=== PATIENT | male | born 1960 | race Caucasian/White ===

== ENCOUNTER 2017-02-19 12:27 | Emergency (ER) | payer OTHER ==
[~2017-02-19] VITALS: Ht 165.1 cm; Wt 109.1 kg
[~2017-02-19 12:27] MED LIST: /WARF5TA PO; ACET65TA PO; ENOX40SY SC; IBUP600T PO; PRIN10TA PO; TRAM50TA2 PO; TYL RE; VICO5TAB OR
[2017-02-19] MEDS ORDERED: XARE10TA PO (12:35)
[2017-02-19] MEDS ORDERED: AMIT10TA PO (12:35)
[2017-02-19] MEDS ORDERED: LISI10TA4 PO (12:35)
[2017-02-19] MEDS ORDERED: ASPIRIN 81 MG CHEW TABLET PO ONE (13:00)
[2017-02-19] MEDS ORDERED: LORazepam 2 MG/ML VIAL (J2060) IV STA (13:36)
[2017-02-19 13:37] LABS: BASO % 0.4 % (0.0-1.0); EOS # 0.1 K/mm3 (0.0-0.50); EOS % 1.5 % (0.0-3.0); LARGE UNSTAINED CELL # 0.1 K/mm3 (0.0-0.4); LARGE UNSTAINED CELL % 1.2 % (0.0-4.0); LYMPH # 2.3 K/mm3 (1.5-4.5); LYMPH % 25.3 % (24.0-44.0); MEAN CORPUSCULAR HGB CONC 34.1 g/dl (32.0-36.5); MONO # 0.4 K/mm3 (0.0-0.8); MONO % 4.8 % (0.0-5.0); NEUTROPHILS # 5.7 K/mm3 (1.8-7.7); NEUTROPHILS % 66.8 % (36.0-66.0); PLATELET COUNT, AUTOMATED 245 k/mm3 (150-450); RED CELL DISTRIBUTION WIDTH 12.3 % (11.5-14.5); WHITE BLOOD COUNT 8.5 K/mm3 (4.0-10.0)
[2017-02-19] MEDS ORDERED: fentaNYL 100 MCG/2 ML INJECTION (J3010) IV ONE (13:45)
--- NOTE | 2017-02-19 13:48 | REP ---
Chest two views HISTORY: Chest pain Comparison: 03/09/2013 The lungs are clear. The heart is normal in size. The pulmonary vasculature is normal in appearance. The bony structure is intact. IMPRESSION: No acute disease. Signed by Caio Jefferson MD 02/19/2017 01:39 P
[2017-02-19 13:51] LABS: ANION GAP 8 MEQ/L (8-16); BLOOD UREA NITROGEN 15 MG/DL (7-18); CALCIUM LEVEL 9.2 MG/DL (8.5-10.1); CARBON DIOXIDE LEVEL 26 MEQ/L (21-32); CHLORIDE LEVEL 103 MEQ/L (98-107); CREATININE FOR GFR 0.85 MG/DL (0.70-1.30); GLOMERULAR FILTRATION RATE > 60.0 (>56); GLUCOSE, FASTING 171 MG/DL (70-105); POTASSIUM SERUM 3.5 MEQ/L (3.5-5.1); SODIUM LEVEL 137 MEQ/L (136-145)
[2017-02-19] MEDS ORDERED: ISOVUE-370 76% 100ML VIAL (Q9967) As Ordered ONE (14:07)
--- NOTE | 2017-02-19 16:29 | REP ---
HISTORY: Lower chest pain. COMPARISON: 03/20/2013 CONTRAST: 100 mL of Isovue-370 The mediastinum and pulmonary saúl are unchanged. There is no mass or adenopathy. The intrathoracic vascular structures are unchanged showing no evidence of an abnormality. There are no pleural or pericardial effusions. The imaged upper abdomen and imaged osseous structures are unchanged remaining within normal limits. Evaluation of the lung hein show no significant changes from the prior exam. There are no abnormal nodules, masses or opacities. There is excellent visualization of the pulmonary arterial vasculature and there are no focal filling defects present that would be considered consistent with acute pulmonary emboli. IMPRESSION: CT findings as described above, within normal limits. Signed by Jesus Murrieta DO 02/19/2017 04:37 P
--- NOTE | 2017-02-19 16:35 | REP ---
HISTORY: Left upper abdominal pain. COMPARISON: 07/17/2016 CONTRAST: 100 mL Isovue-370 The prior exam was a noncontrast enhanced exam. The next latest prior of 04/22/2014 was only of the pelvis. The latest prior contrast enhanced abdominal CT was 12/30/2016 and that too was reviewed. There are surgical clips in the gallbladder fossa, status quo from previous cholecystectomy. The liver, spleen, pancreas, adrenal glands and kidneys are again seen to be within normal limits. The abdominal aorta and paraaortic regions are within normal limits. There is no free fluid or free air in the abdomen. The bowel loops and their mesenteries are within normal limits. There is no intraabdominal mass or adenopathy. CT PELVIS: There is no free fluid or free air. There is no mass or adenopathy. The bowel loops and their mesenteries are within normal limits. Bone window technique throughout the examination shows chronic osseous changes, status quo. IMPRESSION: No evidence of acute intraabdominal or intrapelvic disease. Findings as described above. Signed by Jesus Murrieta DO 02/19/2017 04:38 P
[2017-02-19 16:55] VITALS: BP 128/71
--- NOTE | 2017-02-21 07:07 | ECGEPIP ---
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
--- NOTE | 2017-02-21 07:08 | ECGEPIP ---
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
== END 2017-02-19 17:03 | disposition home or self-care (01) ==
LOC: M ED 12:27
DX: R07.9 Chest pain, unspecified (principal); R10.9 Unspecified abdominal pain; I10 Essential (primary) hypertension; E78.4 Other hyperlipidemia
CPT/HCPCS: 71010; 71275; 74177; 80048; 82550; 82553; 83880; 85025; 93005; 93041; 94760; 96374; 96375; 99285; J2060; J3010; Q9967

== ENCOUNTER → 2017-02-26 | Outpatient (REF) | payer OTHER ==
[~2017-02-26] MED LIST changes: +AMIT10TA PO; +LISI10TA4 PO; +XARE10TA PO
[2017-02-26 17:44] LABS: AMYLASE 19 U/L (25-115)
== END ==
LOC: M LAB REF 17:11
PROVIDERS: ATTEND Nurse Practitioner Adult Health
DX: R10.9 Unspecified abdominal pain (principal)

== ENCOUNTER → 2017-11-26 | Outpatient (REF) | payer OTHER ==
[2017-11-26 10:40] LABS: C REACTIVE PROTEIN QUANTITATIV 0.37 MG/DL (0.00-0.30)
== END ==
LOC: M LAB REF 10:10
DX: M25.559 Pain in unspecified hip (principal); M16.10 Unilateral primary osteoarthritis, unspecified hip

== ENCOUNTER 2018-03-10 12:36 | Outpatient (RCR) | payer OTHER | END 2018-03-11 | LOC: M CR 12:36 | DX: I35.0 Nonrheumatic aortic (valve) stenosis (principal); Z95.3 Presence of xenogenic heart valve | CPT/HCPCS: 93798 ==

== ENCOUNTER 2018-03-13 10:28 | Outpatient (RCR) | payer OTHER | END 2018-04-11 | LOC: M CR 10:28 | DX: Z95.3 Presence of xenogenic heart valve (principal); I35.0 Nonrheumatic aortic (valve) stenosis | CPT/HCPCS: 93798 ==

== ENCOUNTER → 2018-03-17 | Outpatient (CLI) | payer OTHER | LOC: M WUC 16:39 | DX: R05 Cough (principal); I51.7 Cardiomegaly; I35.9 Nonrheumatic aortic valve disorder, unspecified; Z95.2 Presence of prosthetic heart valve | CPT/HCPCS: 71046 ==

== ENCOUNTER 2018-05-18 11:28 | Emergency (ER) | payer OTHER ==
[2018-05-18 12:16] LABS: BASO # 0.1 10^3/uL (0.0-0.2); BASO % 0.7 % (0.0-1.0); EOS # 0.2 10^3/uL (0.0-0.50); EOS % 2.6 % (0.0-3.0); HEMATOCRIT 41.9 % (42.0-52.0); IMMATURE GRANULOCYTE % 0.3 % (0-3.0); LYMPH # 2.6 10^3/uL (1.5-4.5); LYMPH % 36.1 % (24.0-44.0); MEAN CORPUSCULAR HEMOGLOBIN 29.4 pg (27.0-33.0); MEAN CORPUSCULAR HGB CONC 33.4 g/dl (32.0-36.5); MONO # 0.6 10^3/uL (0.0-0.8); MONO % 8.1 % (0.0-5.0); NEUTROPHILS # 3.8 10^3/uL (1.8-7.7); NEUTROPHILS % 52.2 % (36.0-66.0); PLATELET COUNT, AUTOMATED 297 10^3/uL (150-450); RED BLOOD COUNT 4.76 10^6/uL (4.30-6.10); RED CELL DISTRIBUTION WIDTH 12.5 % (11.5-14.5); WHITE BLOOD COUNT 7.3 10^3/uL (4.0-10.0)
[2018-05-18 12:27] LABS: INR 1.96; PROTHROMBIN TIME 22.7 SECONDS (12.1-14.4)
[2018-05-18 12:52] LABS: ALBUMIN 3.5 GM/DL (3.2-5.2); ALBUMIN/GLOBULIN RATIO 1.03 (1.00-1.93); ALKALINE PHOSPHATASE 81 U/L (45-117); ALT/SGPT 33 U/L (12-78); ANION GAP 5 MEQ/L (8-16); AST/SGOT 24 U/L (7-37); BILIRUBIN,DIRECT 0.2 MG/DL (0.0-0.2); BILIRUBIN,TOTAL 0.5 MG/DL (0.2-1.0); BLOOD UREA NITROGEN 17 MG/DL (7-18); C REACTIVE PROTEIN QUANTITATIV 0.83 MG/DL (0.00-0.30); CALCIUM LEVEL 8.5 MG/DL (8.5-10.1); CARBON DIOXIDE LEVEL 30 MEQ/L (21-32); CHLORIDE LEVEL 107 MEQ/L (98-107); CPK CREATINE PHOSPHOKINASE 157 U/L (39-308); CREATININE FOR GFR 0.83 MG/DL (0.70-1.30); GLOMERULAR FILTRATION RATE > 60.0 (>56); GLUCOSE, FASTING 143 MG/DL (70-100); MB/CK RELATIVE INDEX 0.83 (< OR =4); POTASSIUM SERUM 3.8 MEQ/L (3.5-5.1); SODIUM LEVEL 142 MEQ/L (136-145); TOTAL PROTEIN 6.9 GM/DL (6.4-8.2); TROPONIN I < 0.02 NG/ML (< 0.10)
[2018-05-18] MEDS: KETOROLAC 30 MG/ML VIAL (J1885) IV (13:58)
== END 2018-05-18 14:11 | disposition home or self-care (01) ==
LOC: M ED 11:28
DX: R07.89 Other chest pain (principal); Z86.718 Personal history of other venous thrombosis and embolism; M48.00 Spinal stenosis, site unspecified; Z88.5 Allergy status to narcotic agent; Z88.6 Allergy status to analgesic agent; Z79.899 Other long term (current) drug therapy; Z79.01 Long term (current) use of anticoagulants; Z79.82 Long term (current) use of aspirin
CPT/HCPCS: J1885

== ENCOUNTER 2019-04-27 06:51 | Emergency (ER) | payer OTHER ==
[~2019-04-27] VITALS: Ht 165.1 cm; Wt 108.0 kg
[~2019-04-27 06:51] MED LIST changes: -/WARF5TA PO; +ACET1TAB55 PO; +AMIT25TA PO; +ASPI81CH33 PO; +BIOF4GEL2 TOP; +COUM1TAB17 PO; +COUM2TAB22 PO; -ENOX40SY SC; +FERR325T16 PO; +FOLI800C PO; +LISI-1046 PO; +LOVE1INJ SC; +METO37.5 PO; +MULT1TAB10 PO; +VITA500C24 PO
[2019-04-27 06:52] VITALS: BP 112/74
[2019-04-27] MEDS ORDERED: XARE20TA PO (06:59)
[2019-04-27] MEDS ORDERED: ATOR40TA75 PO (06:59)
[2019-04-27] MEDS ORDERED: AUGM875T28 PO (07:00)
[2019-04-27] MEDS ORDERED: NS 1,000 ML IV ONE (07:30)
[2019-04-27] MEDS ORDERED: IPRATROPIUM 0.5MG/ALBUTEROL 2.5MG INH SOL UD 3ML (DUONEB)(J7620) NEB PRN (07:30)
[2019-04-27 08:03] LABS: BASO # 0.1 10^3/uL (0.0-0.2); BASO % 0.6 % (0.0-1.0); EOS # 0.3 10^3/uL (0.0-0.5); HEMATOCRIT 42.1 % (42.0-52.0); HEMOGLOBIN 14.6 g/dl (13.5-17.5); LYMPH # 2.3 10^3/uL (1.5-5.0); MEAN CORPUSCULAR HEMOGLOBIN 29.5 pg (27.0-33.0); MEAN CORPUSCULAR HGB CONC 34.7 g/dl (32.0-36.5); MEAN CORPUSCULAR VOLUME 85.1 fl (80.0-96.0); MONO % 7.5 % (0.0-5.0); NEUTROPHILS # 9.2 10^3/uL (1.5-8.5); NEUTROPHILS % 71.7 % (36.0-66.0); PLATELET COUNT, AUTOMATED 439 10^3/uL (150-450); RED BLOOD COUNT 4.95 10^6/uL (4.30-6.10); WHITE BLOOD COUNT 12.8 10^3/uL (4.0-10.0)
[2019-04-27 08:23] LABS: INFLUENZA A AMPLIFICATION NEGATIVE (NEGATIVE); INFLUENZA B AMPLIFICATION NEGATIVE (NEGATIVE)
[2019-04-27 08:25] LABS: BLOOD UREA NITROGEN 15 MG/DL (7-18); CALCIUM LEVEL 9.4 MG/DL (8.5-10.1); CARBON DIOXIDE LEVEL 24 MEQ/L (21-32); CHLORIDE LEVEL 94 MEQ/L (98-107); CK-MB VALUE MASS 1.7 NG/ML (<3.6); CPK CREATINE PHOSPHOKINASE 74 U/L (39-308); CREATININE FOR GFR 1.08 MG/DL (0.70-1.30); GLOMERULAR FILTRATION RATE > 60.0 (>56); GLUCOSE, FASTING 542 MG/DL (70-100); NT-PRO BNP 168 PG/ML (<125); POTASSIUM SERUM 4.7 MEQ/L (3.5-5.1); SODIUM LEVEL 130 MEQ/L (136-145); TROPONIN I < 0.02 NG/ML (< 0.10)
[2019-04-27 09:17] LABS: HEMOGLOBIN A1c 11.5 %
[2019-04-27 09:34] LABS: VENOUS BASE EXCESS -0.3 (-2.0-2.0); VENOUS HCO3 24.2 MEQ/L (23.0-27.0); VENOUS PARTIAL PRESSURE CO2 39.2 mmHg (38.0-50.0); VENOUS PARTIAL PRESSURE O2 62.3 mmHg (30.0-50.0); VENOUS PH 7.408 UNITS (7.330-7.430); VENOUS STANDARD HCO3 24.1 MEQ/L; VENOUS TOTAL CO2 25.4 MEQ/L (24.0-28.0)
--- NOTE | 2019-04-27 09:35 | REP ---
CT CHEST WITHOUT IV CONTRAST: CT chest was performed without IV contrast. Sagittal and coronal reconstruction images are performed. There is a new small right pleural effusion when compared to the prior study of 02/19/2017. There is adjacent mild patchy atelectasis or infiltrate in the right middle and lower lobes. Left lung is clear. There is no left effusion. The heart is normal in size. There is no pericardial effusion. Scattered subcentimeter lymph nodes are seen throughout the mediastinum. There is no axillary adenopathy. There is mild atherosclerotic calcification of the thoracic aorta without aneurysm. There are degenerative changes of the spine. The visualized upper abdomen is unremarkable except for metallic clips in the gallbladder fossa status-post cholecystectomy. IMPRESSION: New small right effusion with adjacent patchy atelectasis or infiltrate in the right and middle lower lobes. Electronically Signed by Rajesh Colon MD 04/27/2019 04:08 P
[2019-04-27] MEDS ORDERED: METF750T36 PO (11:26)
--- NOTE | 2019-04-27 12:58 | REP ---
PA and lateral chest: Comparison is 05/18/2018. There is a new right pleural effusion with adjacent atelectasis. Left lung remains clear. Cardiac size appears normal. The prominent right epicardial fat pad, unchanged. There are surgical clips in the right hilus, unchanged. There is cardiac valve replacement, unchanged. Impression: New right pleural effusion with adjacent atelectasis. Electronically Signed by Rajesh Morales MD 04/27/2019 12:49 P
--- NOTE | 2019-04-28 04:35 | ECGEPIP ---
[facility] - ED Test Date: 2019-04-27 Pat Name: ZORAIDA ROSE Department: Room: - Gender: Male Research Subject: KELLEY : 1960 Requested By: GARY Troy PA-C Order Number: [id number] Reading MD: Don Laboy Measurements Intervals [place] Rate: 85 P: 29 ID: 148 QRS: -27 QRSD: 133 T: 5 QT: 370 QTc: 442 Interpretive Statements SINUS RHYTHM LEFT AXIS DEVIATION RIGHT BUNDLE BRANCH BLOCK MODERATE VOLTAGE CRITERIA FOR LVH, CONSIDER NORMAL VARIANT INFERIOR MYOCARDIAL INFARCTION, PROBABLY OLD SIMILAR TO 05/18/18 Electronically Signed on 04-28-2019 4:34:38 EDT by Don Laboy
--- NOTE | 2019-04-28 12:38 | ED PDOC ---
Post-Departure Follow-Up dr chinchilla faxed formal report of ct chest for fu Nallely Damian MD Apr 28, 2019 12:38
== END 2019-04-27 11:37 | disposition home or self-care (01) ==
LOC: M ED 06:51
DX: J90 Pleural effusion, not elsewhere classified (principal); J98.11 Atelectasis; E11.9 Type 2 diabetes mellitus without complications; R63.1 Polydipsia; R35.8 Other polyuria; J02.9 Acute pharyngitis, unspecified; I10 Essential (primary) hypertension; I48.91 Unspecified atrial fibrillation; E78.5 Hyperlipidemia, unspecified; Z86.718 Personal history of other venous thrombosis and embolism; Z79.899 Other long term (current) drug therapy; Z79.01 Long term (current) use of anticoagulants; Z88.5 Allergy status to narcotic agent; Z88.8 Allergy status to other drugs, medicaments and biological substances

== ENCOUNTER 2019-09-26 23:49 | Emergency (ER) | payer OTHER ==
[~2019-09-26] VITALS: Ht 165.1 cm; Wt 104.5 kg
[~2019-09-26 23:49] MED LIST changes: +ATOR40TA75 PO; +AUGM875T28 PO; +METF750T36 PO; +XARE20TA PO
[2019-09-27] MEDS ORDERED: NS 1,000 ML IV ONE (00:15)
[2019-09-27] MEDS ORDERED: INVO300T PO (00:27)
[2019-09-27] MEDS ORDERED: LANTINJ4 SC (00:27)
[2019-09-27 00:35] LABS: BASO % 0.4 % (0.0-1.0); EOS # 0.1 10^3/uL (0.0-0.5); EOS % 1.3 % (0.0-3.0); HEMATOCRIT 39.8 % (42.0-52.0); HEMOGLOBIN 13.3 g/dl (13.5-17.5); LYMPH % 21.7 % (24.0-44.0); MEAN CORPUSCULAR HEMOGLOBIN 29.4 pg (27.0-33.0); MEAN CORPUSCULAR HGB CONC 33.4 g/dl (32.0-36.5); MEAN CORPUSCULAR VOLUME 87.9 fl (80.0-96.0); MONO # 0.9 10^3/uL (0.0-0.8); MONO % 9.7 % (0.0-5.0); NEUTROPHILS # 6.3 10^3/uL (1.5-8.5); NEUTROPHILS % 66.8 % (36.0-66.0); PLATELET COUNT, AUTOMATED 209 10^3/uL (150-450); RED BLOOD COUNT 4.53 10^6/uL (4.30-6.10); WHITE BLOOD COUNT 9.4 10^3/uL (4.0-10.0)
[2019-09-27] MEDS ORDERED: ISOVUE-370 76% 100ML VIAL (Q9967) As Ordered ONE (00:42)
[2019-09-27 00:43] LABS: INR 1.36; PROTHROMBIN TIME 16.5 SECONDS (11.8-14.0)
[2019-09-27 01:03] LABS: BLOOD UREA NITROGEN 19 MG/DL (7-18); CALCIUM LEVEL 8.9 MG/DL (8.5-10.1); CARBON DIOXIDE LEVEL 26 MEQ/L (21-32); CHLORIDE LEVEL 110 MEQ/L (98-107); CK-MB VALUE MASS 1.1 NG/ML (<3.6); CPK CREATINE PHOSPHOKINASE 68 U/L (39-308); CREATININE FOR GFR 0.99 MG/DL (0.70-1.30); ETHYL ALCOHOL (ETHANOL) 0.003 % (0.000-0.010); GLOMERULAR FILTRATION RATE > 60.0 (>56); GLUCOSE, FASTING 140 MG/DL (70-100); MB/CK RELATIVE INDEX 1.62 (< OR =4); POTASSIUM SERUM 3.7 MEQ/L (3.5-5.1); SODIUM LEVEL 144 MEQ/L (136-145); TROPONIN I 0.08 NG/ML (< 0.10)
--- NOTE | 2019-09-27 01:37 | REPVR ---
PROCEDURE INFORMATION: Exam: CT Head Without Contrast Exam date and time: 09/27/2019 12:51 AM Age: 59 years old Clinical indication: Coma or unconsciousness; Additional info: Prolonged, sudden unconciousness TECHNIQUE: Imaging protocol: Computed tomography of the head without contrast. Radiation optimization: All CT scans at this facility use at least one of these dose optimization techniques: automated exposure control; mA and/or kV adjustment per patient size (includes targeted exams where dose is matched to clinical indication); or iterative reconstruction. COMPARISON: CT Head without contrast 2015-12-28 07:12 FINDINGS: Brain: Normal. No hemorrhage. Unremarkable white matter. No mass effect. Ventricles: Normal. No ventriculomegaly. Bones/joints: Unremarkable. No acute fracture. Sinuses: Visualized sinuses are unremarkable. No fluid levels. Mastoid air cells: Visualized mastoid air cells are well aerated. Soft tissues: Unremarkable. IMPRESSION: No acute intracranial abnormality. Electronically signed by: Zen Whitt On 09/27/2019 01:37:22 AM
--- NOTE | 2019-09-27 01:50 | REPVR ---
PROCEDURE INFORMATION: Exam: CT Abdomen And Pelvis With Contrast Exam date and time: 09/27/2019 12:55 AM Age: 59 years old Clinical indication: Other: Hypotension; Additional info: Collapse, hypotension TECHNIQUE: Imaging protocol: Computed tomography of the abdomen and pelvis with intravenous contrast. Radiation optimization: All CT scans at this facility use at least one of these dose optimization techniques: automated exposure control; mA and/or kV adjustment per patient size (includes targeted exams where dose is matched to clinical indication); or iterative reconstruction. Contrast material: ISOVUE 370; Contrast volume: 100 ml; Contrast route: IV; COMPARISON: CT ABD/PEL W/IV CONTRAST ONLY 2017-02-19 14:24 FINDINGS: Pleural space: Small right-sided pleural effusion associated atelectasis. Heart: Mild cardiac enlargement. Liver: Hepatic steatosis. Gallbladder and bile ducts: Normal. No calcified stones. No ductal dilation. Pancreas: Normal. No ductal dilation. Spleen: Normal. No splenomegaly. Adrenals: Normal. No mass. Kidneys and ureters: 2 mm non-obstructing right renal calculus. Stomach and bowel: Moderate diverticulosis coli. Some of the small bowel loops in the mid abdomen appear slightly thickened, although they are not distended. Appendix: No evidence of appendicitis. Intraperitoneal space: Unremarkable. No free air. No significant fluid collection. Vasculature: Cavernous transformation of the portal vein. Lymph nodes: Unremarkable. No enlarged lymph nodes. Bladder: Unremarkable as visualized. Reproductive: Unremarkable as visualized. Bones/joints: Right hip arthroplasty. Mild lumbar spondylosis. Soft tissues: Unremarkable. Other findings: Aortic valve calcification. IMPRESSION: 1. Hepatic steatosis. 2. Cavernous transformation of the portal vein. 3. Moderate diverticulosis coli. 4. Some of the small bowel loops in the mid abdomen appear slightly thickened, although they are not distended. Significance uncertain. Electronically signed by: Zen Whitt On 09/27/2019 01:49:03 AM
--- NOTE | 2019-09-27 01:50 | REPVR ---
PROCEDURE INFORMATION: Exam: CT Angiography Chest With Contrast Exam date and time: 09/27/2019 12:51 AM Age: 59 years old Clinical indication: Other: Prolonged, sudden unconciousness TECHNIQUE: Imaging protocol: Computed tomographic angiography of the chest with intravenous contrast. 3D rendering: MIP and/or 3D reconstructed images were created by the technologist. Radiation optimization: All CT scans at this facility use at least one of these dose optimization techniques: automated exposure control; mA and/or kV adjustment per patient size (includes targeted exams where dose is matched to clinical indication); or iterative reconstruction. Contrast material: ISOVUE 370; Contrast volume: 100 ml; Contrast route: IV; COMPARISON: CT ANGIO CHEST 2017-02-19 14:24 FINDINGS: Pulmonary arteries: No filling defects in the pulmonary arteries to suggest pulmonary emboli. Aorta: Unremarkable. No aortic aneurysm. No aortic dissection. Lungs: See Pleural Space Finding. Pleural space: Small right-sided pleural effusion with associated atelectasis. Heart: Aortic valve calcification. Gallbladder and bile ducts: Cholecystectomy. Lymph nodes: Unremarkable. No enlarged lymph nodes. Bones/joints: Unremarkable. No acute fracture. Soft tissues: Unremarkable. IMPRESSION: 1. Small right-sided pleural effusion with associated atelectasis. 2. No filling defects in the pulmonary arteries to suggest pulmonary emboli. Electronically signed by: Zen Whitt On 09/27/2019 01:50:24 AM
[2019-09-27 01:51] LABS: AMPHETAMINES LEVEL URINE NEGATIVE (NEGATIVE); BARBITURATES URINE NEGATIVE (NEGATIVE); BENZODIAZEPINES URINE NEGATIVE (NEGATIVE); CANNABINOIDS URINE NEGATIVE (NEGATIVE); COCAINE METABOLITE URINE NEGATIVE (NEGATIVE); METHADONE URINE NEGATIVE (NEGATIVE); OPIATES URINE NEGATIVE (NEGATIVE); PHENCYCLIDINE URINE NEGATIVE (NEGATIVE)
[2019-09-27 03:16] LABS: CK-MB VALUE MASS 1.8 NG/ML (<3.6); MB/CK RELATIVE INDEX 2.57 (< OR =4); TROPONIN I 0.16 NG/ML (< 0.10)
[2019-09-27] MEDS ORDERED: HEPARIN DRIP 25,000 UNITS in IV 1 EA IV SCH (04:14)
[2019-09-27] MEDS ORDERED: ASPIRIN 81 MG CHEW TABLET PO ONE (04:15)
[2019-09-27] MEDS ORDERED: HEPARIN SOD (PORCINE) 5000 UNITS/ML VIAL (J1644 PER 1000UNITS) IV ONE (04:15)
[2019-09-27 05:20] VITALS: BP 112/68
--- NOTE | 2019-09-27 05:54 | ECGEPIP ---
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
[2019-09-27 05:59] LABS: CK-MB VALUE MASS 1.4 NG/ML (<3.6); MB/CK RELATIVE INDEX 1.09 (< OR =4); TROPONIN I 0.16 NG/ML (< 0.10)
--- NOTE | 2019-09-28 08:27 | ECGEPIP ---
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
== END 2019-09-27 05:27 | disposition short-term general hospital (02) ==
LOC: M ED 23:49
DX: R79.89 Other specified abnormal findings of blood chemistry (principal); I45.10 Unspecified right bundle-branch block; Z79.899 Other long term (current) drug therapy; Z79.4 Long term (current) use of insulin; Z88.5 Allergy status to narcotic agent; Z88.8 Allergy status to other drugs, medicaments and biological substances
CPT/HCPCS: 70450; 71275; 74177; 80047; 80048; 80307; 81001; 82550; 82553; 83605; 84443; 84484; 85025; 85610; 85730; 93005; 93041; 94760; 96361; 96374; 99291; G0480; J1644; Q9967

== ENCOUNTER 2019-10-07 18:47 | Emergency (ER) | payer OTHER ==
[~2019-10-07] VITALS: Ht 165.1 cm; Wt 107.5 kg
[~2019-10-07 18:47] MED LIST changes: +INVO300T PO; +LANTINJ4 SC
[2019-10-07 19:21] LABS: BASO # 0.1 10^3/uL (0.0-0.2); BASO % 0.7 % (0.0-1.0); EOS # 0.2 10^3/uL (0.0-0.5); EOS % 1.5 % (0.0-3.0); HEMATOCRIT 41.2 % (42.0-52.0); HEMOGLOBIN 13.8 g/dl (13.5-17.5); LYMPH # 3.5 10^3/uL (1.5-5.0); LYMPH % 35.5 % (24.0-44.0); MEAN CORPUSCULAR HEMOGLOBIN 29.5 pg (27.0-33.0); MEAN CORPUSCULAR HGB CONC 33.5 g/dl (32.0-36.5); MONO # 0.9 10^3/uL (0.0-0.8); MONO % 9.1 % (0.0-5.0); NEUTROPHILS # 5.2 10^3/uL (1.5-8.5); PLATELET COUNT, AUTOMATED 271 10^3/uL (150-450); RED BLOOD COUNT 4.68 10^6/uL (4.30-6.10); WHITE BLOOD COUNT 9.8 10^3/uL (4.0-10.0)
[2019-10-07] MEDS ORDERED: NS 1,000 ML IV ONE (19:30)
[2019-10-07 19:34] LABS: INR 1.04; PROTHROMBIN TIME 13.3 SECONDS (11.8-14.0)
[2019-10-07 19:52] LABS: ALT/SGPT 32 U/L (12-78); BILIRUBIN,DIRECT 0.2 MG/DL (0.0-0.2); BILIRUBIN,TOTAL 0.7 MG/DL (0.2-1.0); BLOOD UREA NITROGEN 22 MG/DL (7-18); CALCIUM LEVEL 9.4 MG/DL (8.5-10.1); CARBON DIOXIDE LEVEL 25 MEQ/L (21-32); CHLORIDE LEVEL 105 MEQ/L (98-107); CPK CREATINE PHOSPHOKINASE 69 U/L (39-308); CREATININE FOR GFR 1.18 MG/DL (0.70-1.30); GLOMERULAR FILTRATION RATE > 60.0 (>56); GLUCOSE, FASTING 141 MG/DL (70-100); LIPASE 90 U/L (73-393); MB/CK RELATIVE INDEX 1.45 (< OR =4); POTASSIUM SERUM 3.2 MEQ/L (3.5-5.1); SODIUM LEVEL 138 MEQ/L (136-145); TOTAL PROTEIN 7.8 GM/DL (6.4-8.2); TROPONIN I < 0.02 NG/ML (< 0.10)
[2019-10-07 20:04] LABS: ABG BASE EXCESS -0.3 (-2.0-2.0); ABG HCO3 23.3 MEQ/L (22.0-26.0); ABG O2 SATURATION 97.6 % (95.0-99.0); ABG PARTIAL PRESSURE CO2 34.9 mmHg (35.0-45.0); ABG PARTIAL PRESSURE O2 98.6 mmHg (75.0-100.0); ABG STANDARD HCO3 24.3 MEQ/L (22.0-26.0); ABG TOTAL CO2 24.4 MEQ/L (22.0-29.0); ABG pH (ARTERIAL) 7.443 UNITS (7.350-7.450)
--- NOTE | 2019-10-07 20:39 | REP ---
Portable chest x-ray: Single view. History: Chest pain. Comparison chest x-ray: April 27, 2019. Findings: The patient is status post aortic valve replacement. There are mediastinal clips on the right. Right hemidiaphragm is somewhat elevated and there is pleuroparenchymal fibrosis on the right. This appears less prominent than on the April 27, 2019 study. No acute infiltrate is appreciated. Heart is not enlarged. Impression: Status post aortic valve replacement. 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 No acute infiltrate. Electronically Signed by Curtis Pierson MD 10/08/2019 08:58 A
[2019-10-07] MEDS ORDERED: ISOVUE-370 76% 100ML VIAL (Q9967) As Ordered ONE (21:01)
--- NOTE | 2019-10-07 22:12 | REPVR ---
PROCEDURE INFORMATION: Exam: CT Abdomen And Pelvis With Contrast Exam date and time: 10/07/2019 9:14 PM Age: 59 years old Clinical indication: Abdominal pain; Generalized; Additional info: Hypotens TECHNIQUE: Imaging protocol: Computed tomography of the abdomen and pelvis with intravenous contrast. Radiation optimization: All CT scans at this facility use at least one of these dose optimization techniques: automated exposure control; mA and/or kV adjustment per patient size (includes targeted exams where dose is matched to clinical indication); or iterative reconstruction. Contrast material: ISOVUE 370; Contrast volume: 100 ml; Contrast route: IV; COMPARISON: CT ABD/PEL W/IV CONTRAST ONLY 09/27/2019 12:50 AM FINDINGS: Lungs: Mild atelectasis in the right middle lobe. Pleural space: Small right pleural effusion. Liver: The liver is low attenuation indicating hepatic steatosis. Gallbladder and bile ducts: There has been prior cholecystectomy. No biliary duct dilation. Pancreas: Normal. No ductal dilation. Spleen: Normal. No splenomegaly. Adrenals: Normal. No mass. Kidneys and ureters: Punctate calyceal stone in the right kidney. Kidneys are otherwise unremarkable. No hydronephrosis. Stomach and bowel: There is mild colonic diverticulosis without evidence of diverticulitis. The small bowel is unremarkable. Appendix: No evidence of appendicitis. Intraperitoneal space: Unremarkable. No free air. No significant fluid collection. Vasculature: Portal vein is patent. 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 Aorta is normal size. No aneurysm or dissection. Lymph nodes: Unremarkable. No enlarged lymph nodes. Bladder: Unremarkable as visualized. Reproductive: Unremarkable as visualized. Bones/joints: There are degenerative changes in the spine and pelvis. Prior right hip arthroplasty. Soft tissues: Unremarkable. IMPRESSION: 1. Hepatic steatosis. 2. Colonic diverticulosis without evidence of diverticulitis. 3. 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 No other signs of portal hypertension. Electronically signed by: Bairon Donnelly On 10/07/2019 22:11:47 PM
--- NOTE | 2019-10-07 22:20 | REPVR ---
PROCEDURE INFORMATION: Exam: CT Angiography Chest With Contrast Exam date and time: 10/07/2019 9:14 PM Age: 59 years old Clinical indication: Chest pain; Additional info: Hypotens TECHNIQUE: Imaging protocol: Computed tomographic angiography of the chest with intravenous contrast. 3D rendering: MIP and/or 3D reconstructed images were created by the technologist. Radiation optimization: All CT scans at this facility use at least one of these dose optimization techniques: automated exposure control; mA and/or kV adjustment per patient size (includes targeted exams where dose is matched to clinical indication); or iterative reconstruction. Contrast material: ISOVUE 370; Contrast volume: 100 ml; Contrast route: IV; COMPARISON: CT ANGIO CHEST 09/27/2019 12:50 AM FINDINGS: Pulmonary arteries: Normal. No pulmonary emboli. Aorta: Unremarkable. No aortic aneurysm. No aortic dissection. Lungs: Mild right basilar atelectasis and scarring in the right middle lobe. Pleural space: Pleural small right pleural effusion. Heart: Prior aortic valve surgery. Normal heart size. No pericardial effusion. Lymph nodes: Unremarkable. No enlarged lymph nodes. Bones/joints: Skeletal degenerative changes are noted. Soft tissues: Unremarkable. IMPRESSION: 1. Small right pleural effusion and mild basilar atelectasis. 2. Otherwise unremarkable. No acute findings. Electronically signed by: Bairon Donnelly On 10/07/2019 22:20:09 PM
[2019-10-07 23:28] VITALS: BP 110/60
[2019-10-07] MEDS ORDERED: NALOXONE INJ 2 MG/2 ML SYRINGE (J2310) As Ordered ONE (23:31)
[2019-10-08] MEDS ORDERED: METO25TA4 PO (01:55)
[2019-10-08] MEDS ORDERED: BIOF4GEL2 EXT (01:55)
[2019-10-08] MEDS ORDERED: XARE20TA PO (01:55)
[2019-10-08] MEDS ORDERED: VITMTA PO (01:55)
[2019-10-08] MEDS ORDERED: AMIT25TA PO (01:55)
[2019-10-08] MEDS ORDERED: METF750T36 PO (01:55)
[2019-10-08] MEDS ORDERED: ATOR40TA75 PO (01:55)
--- NOTE | 2019-10-08 05:59 | ECGEPIP ---
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
--- NOTE | 2019-10-08 06:03 | ECGEPIP ---
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
== END 2019-10-07 23:29 | disposition home or self-care (01) ==
LOC: M ED 18:47
DX: E86.0 Dehydration (principal); E11.9 Type 2 diabetes mellitus without complications; I10 Essential (primary) hypertension; Z88.5 Allergy status to narcotic agent; E78.5 Hyperlipidemia, unspecified; Z86.718 Personal history of other venous thrombosis and embolism; Z88.8 Allergy status to other drugs, medicaments and biological substances; Z79.899 Other long term (current) drug therapy; Z79.84 Long term (current) use of oral hypoglycemic drugs; Z79.01 Long term (current) use of anticoagulants
CPT/HCPCS: 36415; 36600; 71045; 71275; 74177; 80048; 80076; 82550; 82553; 82803; 83690; 84484; 85025; 85610; 93005; 93041; 96360; 99285; Q9967

== ENCOUNTER 2019-10-07 23:33 | Inpatient (IN) | payer OTHER ==
[~2019-10-07] VITALS: Ht 165.1 cm; Wt 103.7 kg
[2019-10-07] MEDS ORDERED: levETIRAcetam INJection 1,000 MG in D5W 100 ML IV ONE (23:45)
[2019-10-08 00:10] LABS: HEMATOCRIT 40.3 % (42.0-52.0); HEMOGLOBIN 13.1 g/dl (13.5-17.5); MEAN CORPUSCULAR HEMOGLOBIN 29.1 pg (27.0-33.0); MEAN CORPUSCULAR HGB CONC 32.5 g/dl (32.0-36.5); MEAN CORPUSCULAR VOLUME 89.6 fl (80.0-96.0); PLATELET COUNT, AUTOMATED 270 10^3/uL (150-450); WHITE BLOOD COUNT 13.8 10^3/uL (4.0-10.0)
[2019-10-08 00:29] LABS: ATYPICAL LYMPH 4 % (0-5); BASOPHILS 2 % (0-1); LYMPHOCYTES 34 % (16-44); MONOCYTES 5 % (0-5); NEUTROPHILS 54 % (28-66); PLATELET ESTIMATE NORMAL (NORMAL)
--- NOTE | 2019-10-08 00:32 | REPVR ---
PROCEDURE INFORMATION: Exam: CT Head Without Contrast Exam date and time: 10/07/2019 11:47 PM Age: 59 years old Clinical indication: Other: Seizure; Additional info: Seiz TECHNIQUE: Imaging protocol: Computed tomography of the head without contrast. Radiation optimization: All CT scans at this facility use at least one of these dose optimization techniques: automated exposure control; mA and/or kV adjustment per patient size (includes targeted exams where dose is matched to clinical indication); or iterative reconstruction. COMPARISON: CT Head without contrast 09/27/2019 12:47 AM FINDINGS: Brain: No signs of an acute infarction. No intracranial hemorrhage, midline shift, or mass. Ventricles: Normal. No ventriculomegaly. Bones/joints: Unremarkable. No acute fracture. Sinuses: Visualized sinuses are unremarkable. No fluid levels. Mastoid air cells: Visualized mastoid air cells are well aerated. Soft tissues: Unremarkable. Vasculature: There is symmetrical hyperattenuation in both middle cerebral arteries. IMPRESSION: 1. Symmetrical hyperattenuation in both middle cerebral arteries. Finding could be seen in the setting of intraluminal thrombus, dehydration, or atherosclerotic disease. No evidence of an acute infarction or hemorrhage in either MCA territory. 2. No other acute findings. Electronically signed by: Bairon Donnelly On 10/08/2019 00:32:01 AM
[2019-10-08 00:34] LABS: CALCIUM LEVEL 8.7 MG/DL (8.5-10.1); CK-MB VALUE MASS 1.4 NG/ML (<3.6); CREATININE FOR GFR 1.35 MG/DL (0.70-1.30); MB/CK RELATIVE INDEX 1.92 (< OR =4); POTASSIUM SERUM 3.6 MEQ/L (3.5-5.1); TROPONIN I 0.07 NG/ML (< 0.10)
--- NOTE | 2019-10-08 01:28 | HPEPDOC ---
[facility] Medical History & Physical Date of Admission Oct 08, 2019 Date of Service: Oct 08, 2019 Primary Care Physician: Jr Mata Collins Attending Physician: VIRGINIA FREEMAN MD History and Physical TIME OF SERVICE: 2:15 AM CHIEF COMPLAINT: Weakness HISTORY OF PRESENT ILLNESS: The patient is a poor historian the majority of the history is obtained from the patient's and the ER attending. This is a 59-year-old male who asked his to the ER because he was feeling weak. Per discussion with Dr. Gutiérrez. The initial workup was unremarkable. Just prior to discharging the patient, the patient had an episode where he lost consciousness and was noted to be shaking; ER staff performed CPR on him. According to the patient's , he had a similar episode on September 26 and presented to the [facility]; at that time, his troponins were elevated. He was transferred to [facility] where he had a PCI without intervention and an EEG. She's not sure the results of the EEG. REVIEW OF SYSTEMS: 12 point review of systems negative except as listed in HPI PAST MEDICAL/ SURGICAL HISTORY: Diabetes Chronic Hypertension Portal vein thrombosis on Xarelto Obesity. Nephrolithiasis Cholelithiasis. Cardiomegaly. Bicuspid aortic valve Spinal stenosis. Status post cholecystectomy SOCIAL HISTORY: Nonsmoker FAMILY HISTORY: Colon cancer ALLERGIES: Please see below. HOME MEDICATIONS: Please see below. PHYSICAL EXAMINATION: VITAL SIGNS: Please see below. GEN: well-nourished / well developed INTEGUMENT: not flushed HEENT: NCAT / lips acyanotic /mucus membranes moist and pink CVS: RRR/NMRG/ no JVP / radial and dorsalis pedis pulses intact / no lower extremity edema LUNGS: lungs are clear to auscultation bilaterally on room air ABDOMEN: Contour (flat) /the abdomen is tympanic on percussion, soft & not tender with palpation MSK/EXTREMITIES: range of motion intact in all 4 extremities NEURO: CN 2-12 are grossly intact / speech is not dysarthric PSYCH: lethargic/ able to understand and follow all commands LABORATORY DATA: See below. IMAGING: Chest x-ray shows cardiomegaly, but the final read is pending CT head " IMPRESSION: 1. Symmetrical hyperattenuation in both middle cerebral arteries. Finding could be seen in the setting of intraluminal thrombus, dehydration, or atherosclerotic disease. No evidence of an acute infarction or hemorrhage in either MCA te rritory. 2. No other acute findings. " ASSESSMENT: Mr. Garcia is a 69-year-old male with a past history of diabetes, hypertension, cardiomegaly, bicuspid aortic valve, portal vein thrombosis, and obesity who is admitted for evaluation of syncope. PLAN: 1. Syncope Cause to be determined He received keppra in the ER Plan: Admit to medical floor/Telemetry / f/u orthostats / neurochecks / fall p recautions / seizure precautions / IV fluids /follow-up prolactin to rule out seizures/ ativan PRN for seizures / follow-up EEG/obtain records from [facility] regarding neuro workup to determine cause of syncope prior to ordering additional brain imaging studies 2. Hypotension - Plan: IVF / f/u orthostats / hold BP meds 3. Chest pain likely due to mechanical force from "CPR". It is unclear if he had chest pain before loosing conciousness and it is unlikely that he truly had cardiac arrest. -Plan: f/u repeat trop / obtain records from [facility] regarding recent cath 4. LISA - Plan: IVF 5. Diabetes - Plan: diabetic diet / f/u accuchecks & A1C / hypoglycemia protocol / sliding scale insulin /hold metformin 6. Portal vein thrombosis - Plan: Xarelto 7. Obesity with a BMI of 38 and co-existing DM - Plan: f/u with PCP for STOP bang questionnaire DVT PROPHYLAXIS: n/a bc the pt is on xarelto DISPOSITION: home after more than 2 midnight's stay Vital Signs Vital Signs Date Time Temp Pulse Resp B/P (MAP) Pulse Ox O2 Delivery O2 Flow Rate FiO2 10/08/19 01:00 83 18 92/54 (67) 97 Room Air 10/07/19 23:44 4.0 Laboratory Data Labs 24H Laboratory Tests 2 10/07/19 23:38: Bedside Glucose (Misc Panel) 121H 10/07/19 23:57: Neutrophils (%) (Auto) , Lymphocytes # (Auto) , Nucleated Red Blood Cells % (auto) 0.0, Neutrophils 54, Band Neutrophils 1, Lymphocytes (Manual) 34, Monocytes (Manual) 5, Basophils (Manual) 2H, Atypical Lymphocytes 4, Red Blood Cell Morphology NORMAL, Platelet Estimate NORMAL, Anion Gap 13, Glomerular Filtration Rate 58.0, Calcium Level 8.7, Total Creatine Kinase 73, Creatine Kinase MB 1.4, Creatine Kinase MB Relative Index 1.92, Troponin I 0.07# CBC/BMP Laboratory Tests 10/07/19 23:57 Home Medications Scheduled Amitriptyline HCl (Amitriptyline HCl) 25 Mg Tablet, 12.5 MG PO QHS Atorvastatin Calcium (Atorvastatin Calcium) 40 Mg Tablet, 40 MG PO QHS Metformin HCl (Metformin HCl ER) 750 Mg Tab.er.24h, 750 MG PO DAILY Metoprolol Tartrate (Metoprolol Tartrate) 25 Mg Tablet, 37.5 MG PO BID Multivitamins (Thera M Plus Tablet) 1 Each Tablet, 1 TAB PO DAILY Rivaroxaban (Xarelto) 20 Mg Tablet, 20 MG PO QHS Scheduled PRN Menthol (Biofreeze) 118 Ml Gel..ml., 1 DOSE EXT QID PRN for PAIN APPLIES TO BACK Allergies Coded Allergies: acetaminophen (Verified Allergy, Unknown, 09/26/19) hydrocodone (Verified Allergy, Unknown, 09/26/19) hydromorphone (Verified Adverse Reaction, Mild, HALLUCINATIONS, 09/26/19) A-FIB/CHADSVASC A-FIB History Current/History of A-Fib/PAF?: No Current PO Anticoag Therapy: VIRGINIA Ramos MD Oct 08, 2019 01:28
[2019-10-08] MEDS ORDERED: GLUCOSE 4 GM CHEW TABLET PO PRN (01:30)
[2019-10-08] MEDS ORDERED: DEXTROSE 50% 50 ML SYRINGE IV PRN (01:30)
[2019-10-08] MEDS ORDERED: GLUCAGON FOR INJ 1 MG VIAL (J1610) SC PRN (01:30)
[2019-10-08] MEDS ORDERED: MOM 30ML SUSPENSION UDC PO PRN (01:45)
[2019-10-08] MEDS ORDERED: NS 1,000 ML IV SCH (01:45)
[2019-10-08] MEDS ORDERED: LORazepam 2 MG/ML VIAL (J2060) IV PRN (01:45)
[2019-10-08] MEDS ORDERED: MAALOX 30 ML SUSP *UDC PO PRN (01:45)
[2019-10-08] MEDS ORDERED: VITMTA PO (01:55)
[2019-10-08] MEDS ORDERED: BIOF4GEL2 EXT (01:55)
[2019-10-08] MEDS ORDERED: METF750T36 PO (01:55)
[2019-10-08] MEDS ORDERED: ATOR40TA75 PO (01:55)
[2019-10-08] MEDS ORDERED: AMIT25TA PO (01:55)
[2019-10-08] MEDS ORDERED: METO25TA4 PO (01:55)
[2019-10-08] MEDS ORDERED: XARE20TA PO (01:55)
[2019-10-08] MEDS ORDERED: MORPHINE 2 MG/ML 1ML VIAL (J2270) IV ONE (02:30)
[2019-10-08] MEDS: DOCUSATE SODIUM 100 MG CAP PO SCH ×3 (02:42→08:55)
[2019-10-08] MEDS ORDERED: SUCCINYLCHOLINE 100 MG/5 ML SYRINGE (J0330) ONE (05:11)
[2019-10-08] MEDS ORDERED: traMADol 50 MG TAB PO ONE (05:45)
[2019-10-08 07:08] LABS: HEMATOCRIT 36.1 % (42.0-52.0); HEMOGLOBIN 12.3 g/dl (13.5-17.5); MEAN CORPUSCULAR HEMOGLOBIN 29.7 pg (27.0-33.0); MEAN CORPUSCULAR HGB CONC 34.1 g/dl (32.0-36.5); MEAN CORPUSCULAR VOLUME 87.2 fl (80.0-96.0); PLATELET COUNT, AUTOMATED 201 10^3/uL (150-450); RED BLOOD COUNT 4.14 10^6/uL (4.30-6.10); WHITE BLOOD COUNT 9.7 10^3/uL (4.0-10.0)
[2019-10-08 07:12] LABS: AMPHETAMINES LEVEL URINE NEGATIVE (NEGATIVE); BARBITURATES URINE NEGATIVE (NEGATIVE); BENZODIAZEPINES URINE NEGATIVE (NEGATIVE); CANNABINOIDS URINE NEGATIVE (NEGATIVE); COCAINE METABOLITE URINE NEGATIVE (NEGATIVE); METHADONE URINE NEGATIVE (NEGATIVE); OPIATES URINE POSITIVE (NEGATIVE); PHENCYCLIDINE URINE NEGATIVE (NEGATIVE)
[2019-10-08 07:48] LABS: BLOOD UREA NITROGEN 17 MG/DL (7-18); CALCIUM LEVEL 8.3 MG/DL (8.5-10.1); CARBON DIOXIDE LEVEL 22 MEQ/L (21-32); CHLORIDE LEVEL 111 MEQ/L (98-107); GLOMERULAR FILTRATION RATE > 60.0 (>56); GLUCOSE, FASTING 110 MG/DL (70-100); POTASSIUM SERUM 3.9 MEQ/L (3.5-5.1); SODIUM LEVEL 141 MEQ/L (136-145); TROPONIN I 0.21 NG/ML (< 0.10)
--- NOTE | 2019-10-08 07:52 | REP ---
Chest x-ray: Single AP view. History: Pain post CPR. Findings: Monitoring electrodes are seen. There are post thoracotomy changes in the right hemithorax as before with slight elevation right hemidiaphragm. Lung hein are clear. There is no evidence of pneumothorax or hydrothorax. Mediastinum is not widened. No rib or other fracture is appreciated. Impression: No active cardiopulmonary disease. Post thoracotomy changes on the right. Electronically Signed by Curtis Pierson MD 10/08/2019 07:44 A
[2019-10-08] MEDS: HumaLOG INSULIN (NovoLOG) PER UNIT SC SCH ×2 (08:54→13:01)
[2019-10-08] MEDS ORDERED: MULTIVITAMINS/MINERALS THERAP 1 TAB PO SCH (09:00)
[2019-10-08 10:40] LABS: HEMOGLOBIN A1c 6.2 %
[2019-10-08] MEDS ORDERED: METAL LOCK LOOP XX ONE (10:42)
--- NOTE | 2019-10-08 13:23 | IPNPDOC ---
Subjective Date Seen The patient was seen on 10/08/19. Subjective Chief Complaint/HPI No further syncopal events. Trop slightly higher this morning following syncopal event and initiation of CPR Objective Physical Examination General Exam: Positive: Alert, Cooperative, No Acute Distress Eye Exam: Positive: PERRLA, Conjunctiva & lids normal, EOMI; Negative: Sclera icteric ENT Exam: Positive: Mucous membr. moist/pink Neck Exam: Positive: Supple; Negative: JVD Chest Exam: Positive: Clear to auscultation, Normal air movement, Other (chest wall tenderness to palpation ) Extremity Exam: Positive: Normal pulses; Negative: Edema Neuro Exam: Positive: Normal Speech, Strength at 5/5 X4 ext, Normal Tone, Cranial Nerves 3-12 NL Psych Exam: Positive: Mental status NL, Mood NL, Oriented x 3; Negative: Anxiety Assessment /Plan Assessment # Syncope due to failing bioprosthetic valve - transfer to [facility] for evaluation for valve replacement when bed available - D/w Florecita Dejesus (Cardiology) and Diana (Hospitalist) both agree on need for transfer, and have accepted the patient. # Elevated trop - normal heart cath 2 weeks ago - type 2 ischemic event from syncopal event and chest compressions. - Never required ACLS medications, never required pressors. # LISA - resolved - stopped IVFs # Diabetes - hold metformin - continue SS, diabetic diet # Portal vein thrombosis - continue Xarelto Plan/VTE VTE Prophylaxis Ordered?: No (on eliquis) VS, I&O, 24H, Fishbone Vital Signs/I&O Vital Signs Date Time Temp Pulse Resp B/P (MAP) Pulse Ox O2 Delivery O2 Flow Rate FiO2 10/08/19 12:45 90 94 10/08/19 12:30 18 102/63 (76) Room Air 10/08/19 11:31 97.7 10/07/19 23:44 4.0 I&O- Last 24 Hours up to 6 AM 10/08/19 06:00 Intake Total 110 ml Balance 110 ml Laboratory Data 24H LABS Laboratory Tests 2 10/07/19 23:38: Bedside Glucose (Misc Panel) 121H 10/07/19 23:57: Neutrophils (%) (Auto) , Lymphocytes # (Auto) , Nucleated Red Blood Cells % (auto) 0.0, Neutrophils 54, Band Neutrophils 1, Lymphocytes (Manual) 34, Monocytes (Manual) 5, Basophils (Manual) 2H, Atypical Lymphocytes 4, Red Blood Cell Morphology NORMAL, Platelet Estimate NORMAL, Anion Gap 13, Glomerular Filtration Rate 58.0, Calcium Level 8.7, Total Creatine Kinase 73, Creatine Kinase MB 1.4, Creatine Kinase MB Relative Index 1.92, Troponin I 0.07# 10/08/19 04:52: Urine Opiates Screen POSITIVEH, Urine Methadone Screen NEGATIVE, Urine Barbiturates Screen NEGATIVE, Urine Phencyclidine Screen NEGATIVE, Urine Amphetamines Screen NEGATIVE, Urine Benzodiazepines Screen NEGATIVE, Urine Cocaine Metabolite Screen NEGATIVE, Urine Cannabinoids Screen NEGATIVE 10/08/19 06:51: Estimated Mean Plasma Glucose 131H, Hemoglobin A1c 6.2 10/08/19 06:55: Anion Gap 8, Glomerular Filtration Rate > 60.0, Calcium Level 8.3L, Troponin I 0.21#H, Prolactin 6.6 10/08/19 06:56: Nucleated Red Blood Cells % (auto) 0.0 10/08/19 07:38: Bedside Glucose (Misc Panel) 102 10/08/19 11:45: Bedside Glucose (Misc Panel) 117H CBC/BMP Laboratory Tests 10/07/19 23:57 10/08/19 06:55 10/08/19 06:56 HOSEA REYNOLDS MD Oct 08, 2019 13:03
[2019-10-08 13:45] VITALS: BP 108/54
--- NOTE | 2019-10-08 19:18 | DSES ---
DATE OF ADMISSION: 10/08/2019 DATE OF DISCHARGE: TIME: 1:32 p.m. ADMITTING PHYSICIAN: Dr. Byers DISCHARGE DIAGNOSES: 1. Syncope secondary to failing bioprosthetic valve. 2. Elevated troponin secondary to syncopal event. 3. Acute kidney injury, resolved. 4. Diabetes mellitus type 2. 5. Portal vein thrombosis, on chronic anticoagulation with Xarelto. PROCEDURE PERFORMED DURING HOSPITALIZATION: None. CONSULTANTS ON THE CASE: None. DISPOSITION: The patient is awaiting transfer to [facility] for further higher level of cardiac care. CONDITION AT TRANSFER: Stable. DISCHARGE INSTRUCTIONS: The patient is instructed to followup with his primary care provider, as well as the cardiology team upon discharge from [facility]. RELEVANT IMAGING STUDIES: CT scan of the head without contrast showed no acute intracranial findings. Chest x-ray, portable, which showed no acute intrathoracic process. Electrocardiogram (EKG) demonstrated a normal sinus rhythm with a right bundle branch block, evidence of left ventricular hypertrophy and nonspecific ST-T changes. RELEVANT LABORATORIES: Sodium 141, potassium 3.9, chloride 111, bicarbonate 22, anion gap 8, BUN 17, creatinine 0.80, glucose 110, calcium 8.3. Troponin marker on admission was 0.07, repeat was 0.21. Prolactin level was 6.6. Hemoglobin A1/c is 6.2. White blood cell count is 9.7, hemoglobin 12.3, hematocrit 36, platelet count 201. Urine drug screen is positive for opiates, which he takes. HOSPITAL COURSE: Mr. Garcia is a 59-year-old gentleman with a history of bioprosthetic valve placement in 2018. He has a history of portal vein thrombosis, for which is currently on Xarelto therapy. He had been hospitalized two weeks ago at [facility] after presenting here with syncopal episode and elevated troponin markers. While there, the patient underwent a left heart catheterization, which failed to show any obstructing coronary artery disease that required intervention. There was concern whether his bioprosthetic valve could be functioning properly and ordered a ADRIAN, which indicated that his valve was malfunctioning. Given that he had a previous surgical aortic valve replacement, there was going to be a conference among the cardiothoracic team, as well as cardiology and whether it was appropriate for a TAVR versus a surgical aortic valve redo. He was subsequently discharged home and would be contacted by the medical team at [facility]. However, the patient presented yesterday with feeling generalized weakness, lightheadedness. He was evaluated in the emergency room and they did not have any of the information that I received this morning from [facility] regarding his recent hospitalization. He was discharged from the emergency room last night but in the process of leaving the patient then became unresponsive and required cardiopulmonary resuscitation (CPR). He had immediate return of circulation without any need for administration of ACLS medications. He did receive CPR, which caused him to have some palpable tenderness on his chest wall this morning. He has otherwise remained stable throughout the night. EKG done late last night did show that he has some ST elevations in AVR, as well as in V1 with ST depressions in lead 1, 2, AVL, V3 and V4, as well as V5. He complained of no symptoms at that time and his EKG this morning has normalized. He was noted to have some mild dehydration on admission yesterday and with IV fluids this is resolved. Sugars have been well controlled. I did discuss his case with his sales professional bilingual, Dr. Zapata, at [facility], who recommended that the patient be transferred. I have spoken to Dr. Gastelum of the hospitalist team, who is in agreement to transfer the patient. The patient will be transferred once a bed is available. A total of 35 minutes was spent in completing all discharge paperwork, as well as facilitating transfer and conversing with the doctors at [facility] and updating the family. DEBBI
[2019-10-08] MEDS ORDERED: AMITRIPTYLINE 25 MG TAB PO SCH (21:00)
[2019-10-08] MEDS ORDERED: ATORVASTATIN 20 MG TAB PO SCH (21:00)
[2019-10-08] MEDS ORDERED: RIVAROXABAN 20 MG TAB (XARELTO) PO SCH (21:00)
[2019-10-08] MEDS ORDERED: HumaLOG INSULIN (NovoLOG) PER UNIT SC SCH (21:00)
--- NOTE | 2019-10-09 16:52 | ECGEPIP ---
[facility] Test Date: 2019-10-08 Pat Name: ZORAIDA ROSE Department: Room: [place] [address] Gender: Male Codifier: junior : 1960 Requested By: HOSEA Gutierrez Order Number: [id number] Reading MD: Zen Bernard Measurements Intervals [place] Rate: 88 P: 28 CT: 162 QRS: -20 QRSD: 138 T: -9 QT: 394 QTc: 478 Interpretive Statements SINUS RHYTHM INTRAVENTRICULAR CONDUCTION DELAY LEFT VENTRICULAR HYPERTROPHY AND ST-T CHANGE Cannot rule out INFERIOR MYOCARDIAL INFARCTION, OF INDETERMINATE AGE. Repolarization abnormalities much less in comparison to 10/07/2019 at 2346 hrs. Electronically Signed on 10-09-2019 16:51:56 EST by Zen Bernard
== END 2019-10-08 13:49 | disposition short-term general hospital (02) | DRG 307 ==
LOC: M ED 23:33 → M ED INP 10-08 01:28
PROVIDERS: ADMIT Internal Medicine; ATTEND Internal Medicine
DX: T82.09XA Other mechanical complication of heart valve prosthesis, initial encounter (principal); N17.9 Acute kidney failure, unspecified; R55 Syncope and collapse; I95.9 Hypotension, unspecified; R07.89 Other chest pain; E11.9 Type 2 diabetes mellitus without complications; E66.9 Obesity, unspecified; Z68.38 Body mass index [BMI] 38.0-38.9, adult; Z79.01 Long term (current) use of anticoagulants; Z79.84 Long term (current) use of oral hypoglycemic drugs; Z79.899 Other long term (current) drug therapy; Z88.5 Allergy status to narcotic agent; Z88.6 Allergy status to analgesic agent; Y83.1 Surgical operation with implant of artificial internal device as the cause of abnormal reaction of the patient, or of later complication, without mention of misadventure at the time of the procedure; Z86.718 Personal history of other venous thrombosis and embolism

== ENCOUNTER → 2019-10-19 | Outpatient (REF) | payer OTHER ==
[~2019-10-19] MED LIST changes: +BIOF4GEL2 EXT; +METO25TA4 PO; +VITMTA PO
[2019-10-19 10:04] LABS: INR 1.82; PROTHROMBIN TIME 20.8 SECONDS (11.8-14.0)
== END ==
LOC: M LAB REF 09:55
PROVIDERS: ATTEND Internal Medicine
DX: I35.0 Nonrheumatic aortic (valve) stenosis (principal)

== ENCOUNTER → 2019-10-21 | Outpatient (REF) | payer OTHER ==
[2019-10-21 10:15] LABS: INR 1.61; PROTHROMBIN TIME 18.9 SECONDS (11.8-14.0)
== END ==
LOC: M LAB REF 09:51
PROVIDERS: ATTEND Internal Medicine
DX: I35.0 Nonrheumatic aortic (valve) stenosis (principal)

== ENCOUNTER → 2019-10-29 | Outpatient (REF) | payer OTHER ==
[2019-10-29 14:35] LABS: INR 1.62
== END ==
LOC: M LAB REF 12:17
PROVIDERS: ATTEND Internal Medicine
DX: Z79.01 Long term (current) use of anticoagulants (principal)

== ENCOUNTER → 2019-11-30 | Outpatient (REF) | payer OTHER ==
[2019-11-30 13:54] LABS: INR 1.86; PROTHROMBIN TIME 21.2 SECONDS (11.8-14.0)
== END ==
LOC: M LAB REF 12:31
PROVIDERS: ATTEND Internal Medicine
DX: I35.0 Nonrheumatic aortic (valve) stenosis (principal); I81 Portal vein thrombosis; Z79.01 Long term (current) use of anticoagulants

== ENCOUNTER → 2019-12-15 | Outpatient (REF) | payer OTHER ==
[2019-12-15 12:55] LABS: INR 1.98; PROTHROMBIN TIME 22.3 SECONDS (11.8-14.0)
== END ==
LOC: M LAB REF 12:08
PROVIDERS: ATTEND Internal Medicine
DX: I81 Portal vein thrombosis (principal); Z79.01 Long term (current) use of anticoagulants

== ENCOUNTER → 2020-01-11 | Outpatient (REF) | payer OTHER ==
[~2020-01-11] MED LIST changes: -LISI-1046 PO; +LISI2.5T2 PO
[2020-01-11 12:27] LABS: INR 1.86; PROTHROMBIN TIME 21.2 SECONDS (11.8-14.0)
== END ==
LOC: M LAB REF 12:02
PROVIDERS: ATTEND Internal Medicine
DX: Z79.01 Long term (current) use of anticoagulants (principal)

== ENCOUNTER 2021-02-23 09:35 | Inpatient (IN) | payer OTHER ==
[~2021-02-23] VITALS: Ht 165.1 cm; Wt 108.2 kg
[~2021-02-23 09:35] MED LIST changes: -AMIT10TA PO; +AMIT10TA7 PO; -AMIT25TA PO; +AMIT25TA17 PO; -BIOF4GEL2 EXT; +FERR324T21 PO; -FERR325T16 PO; +LISI10TA22 PO; -LISI10TA4 PO
[2021-02-23] MEDS ORDERED: ASPI81CH33 PO (11:27)
[2021-02-23] MEDS ORDERED: HEPARIN DRIP 25,000 UNITS in IV 1 EA IV SCH (12:20)
[2021-02-23 12:42] LABS: BASO # 0.1 10^3/uL (0.0-0.2); BASO % 0.7 % (0.0-1.0); EOS # 0.1 10^3/uL (0.0-0.5); EOS % 1.4 % (0.0-3.0); HEMATOCRIT 42.5 % (42.0-52.0); HEMOGLOBIN 14.1 g/dl (13.5-17.5); LYMPH # 2.4 10^3/uL (1.5-5.0); LYMPH % 29.2 % (24.0-44.0); MEAN CORPUSCULAR HEMOGLOBIN 29.3 pg (27.0-33.0); MEAN CORPUSCULAR HGB CONC 33.2 g/dl (32.0-36.5); MEAN CORPUSCULAR VOLUME 88.2 fl (80.0-96.0); MONO # 0.7 10^3/uL (0.0-0.8); MONO % 8.5 % (2.0-8.0); NEUTROPHILS # 4.9 10^3/uL (1.5-8.5); PLATELET COUNT, AUTOMATED 304 10^3/uL (150-450); RED BLOOD COUNT 4.82 10^6/uL (4.30-6.10); WHITE BLOOD COUNT 8.1 10^3/uL (4.0-10.0)
--- NOTE | 2021-02-23 12:45 | CR.PDOC ---
General Date of Consultation: Feb 23, 2021 Consultation REASON FOR CONSULTATION/CHIEF COMPLAINT: Left cold foot HISTORY OF PRESENT ILLNESS: 60 y/o male was golfing yesterday and noticed pain in left foot approximately 4pm. Later in the day, he started feeling a "pins and needle" sensation. He stated pain was in the calf region, but then also radiated up on the medial aspect of the leg up to the groin. He denies any previous episodes. Came to ED today, because left foot feels cold and still having pain. Does not have any neurological deficit at this point. No problems with right leg. Patient currently on Xarelto. ALLERGIES: Please see below. HOME MEDICATIONS: Please see below. PAST MEDICAL HISTORY: 1. Valvular Heart Disease 2. h/o Portal Vein Thrombosis 3. DM 4. Seizure d/o PAST SURGICAL HISTORY: 1. Aortic Valve Replacement REVIEW OF SYSTEMS: CONSTITUTIONAL: Left cold foot and pain, otherwise negative ROS HEENT: Negative CARDIOVASCULAR: Negative RESPIRATORY: Negative GENITOURINARY: Negative MUSCULOSKELETAL: Negative GASTROINTESTINAL: Negative SKIN: Negative NEUROLOGICAL: Negative PSYCHIATRIC: Negative ENDOCRINE: Negative HEMATOLOGIC/LYMPHATIC: Negative ALLERGIC/IMMUNOLOGIC: Negative PHYSICAL EXAMINATION: VITAL SIGNS: Please see below. GENERAL APPEARANCE: Comfortable, no acute distress HEENT: Normal RESPIRATORY: Clear b/l CARDIOVASCULAR: s1 & s2 ABDOMEN: soft, nd, nt EXTREMITIES: Right leg with 2+ dp/pt pulses, Left Leg: biphasic fem & pop, monophasic doppler signals dp/pt/peroneal, mild bluish discoloration of 1st digit, no neurological deficit, left foot cooler than right NEUROLOGICAL: FROM, Strength 5/5 bilateral lower extremity PSYCHIATRIC: Calm LABORATORY DATA: Please see below. ASSESSMENT/PLAN: 1. 60 y/o male with initial assessment of possible thromboemboli to left lower leg. Recommend Heparin bolus and continuous anticoagulation per protocol. Obtain CTA aorta with bilateral leg runoff with IV contrast. cannot rule out thromboemboli from aneurysm, aortic valve or de etienne thrombus formation despite being on Xarelto. Obtain venous duplex to rule out DVT (based on patient's symptoms; seema's sign and medial superficial pain). Will review imaging results. maintain NPO status. Vital Signs/I&O Vital Signs Date Time Temp Pulse Resp B/P (MAP) Pulse Ox O2 Delivery O2 Flow Rate FiO2 02/23/21 09:36 98.4 87 18 160/101 (120) 98 Room Air Allergies Coded Allergies: acetaminophen (Verified Allergy, Unknown, 09/26/19) hydrocodone (Verified Allergy, Unknown, 09/26/19) hydromorphone (Verified Adverse Reaction, Mild, HALLUCINATIONS, 09/26/19) Home Medications Scheduled Amitriptyline HCl (Amitriptyline HCl) 25 Mg Tablet, 12.5 MG PO QHS, (Reported) Aspirin (Aspirin) 81 Mg Tab.chew, 81 MG PO DAILY for pain for 30 Days, #30 (Reported) Atorvastatin Calcium (Atorvastatin Calcium) 40 Mg Tablet, 40 MG PO QHS, (Reported) Metformin HCl (Metformin HCl ER) 750 Mg Tab.er.24h, 750 MG PO DAILY, (Reported) Metoprolol Tartrate (Metoprolol Tartrate) 25 Mg Tablet, 37.5 MG PO BID, (Reported) Multivitamins (Thera M Plus Tablet) 1 Each Tablet, 1 TAB PO DAILY, (Reported) Rivaroxaban (Xarelto) 20 Mg Tablet, 20 MG PO QHS, (Reported) Scheduled PRN Menthol (Biofreeze) 118 Ml Gel..ml., 1 DOSE EXT QID PRN for PAIN, (Reported) APPLIES TO BACK AUGUSTINE KIRKLAND MD Feb 23, 2021 12:45
[2021-02-23] MEDS ORDERED: ISOVUE-370 76% 100ML VIAL As Ordered ONE (12:54)
--- NOTE | 2021-02-23 12:55 | REP ---
INDICATION: pain left calf. COMPARISON: None. TECHNIQUE: Left {lower extremity duplex venous scanning is performed from the groin to the ankle level. FINDINGS: The deep veins are anechoic and fully compressible from the groin to the popliteal fossa in the left lower extremity. Color flow imaging is homogeneous. Spectral Doppler interrogation demonstrates intact respiratory variation in flow and normal manual augmentation of flow. There is no evidence of deep vein thrombosis above the knee. There is no evidence of DVT in the visualized calf veins. Doppler interrogation of the contralateral common femoral vein shows normal symmetric respiratory phasicity. IMPRESSION: No evidence of DVT in the left lower extremity femoropopliteal veins. No DVT in the visible portions of the calf veins. <Electronically signed by Fred Pierson > 02/23/21 [id number]
[2021-02-23 12:56] LABS: INR 1.25
[2021-02-23 12:57] LABS: PARTIAL THROMBOPLASTIN TIME 33.2 SECONDS (24.2-38.5)
[2021-02-23] MEDS ORDERED: HEPARIN SOD (PORCINE) 5000UNITS/ML 1ML VIAL/SYRINGE IV ONE (13:00)
--- NOTE | 2021-02-23 14:03 | REP ---
INDICATION: cold left foot, LE pain r/o occulsion. COMPARISON: None. TECHNIQUE: Helical scanning is acquired following the intravenous injection of 100 mL of Isovue 370. 3 mm axial images re-formatted. Coronal and sagittal MPR and coronal MIP images are included. 3D surface rendered color images are generated and viewed in a rotational format. FINDINGS: Nonvascular findings. These include an aortic valve replacement, a small right pleural effusion, discoid atelectasis in the right lower lobe of the lung, post cholecystectomy, fatty infiltration of the liver and left colonic diverticulosis. The prostate is somewhat enlarged. A right hip prosthesis is noted in place. There is a 3 mm calculus in the right mid kidney. Vascular abnormalities: The lower thoracic and suprarenal abdominal aortic caliber is normal. Celiac and superior mesenteric arteries are unremarkable. Renal arteries are duplicated bilaterally but nonstenotic. The inferior mesenteric artery is patent. There is minimal vascular calcification in the iliacs. The common iliac, external iliac, and internal iliac arteries are widely patent bilaterally. Bilateral common femoral artery and superficial femoral artery patency is seen without significant atherosclerosis. There is an abrupt occlusion of the left popliteal artery the posterior aspect of the knee. There is a focal calcification just distal of this. Geniculate collaterals reconstitute the tibioperoneal trunk and the 3 calf runoff arteries are seen to the distal calf. On the right popliteal artery is widely patent and calf runoff vessels are unremarkable to the distal calf. IMPRESSION: 1. Abrupt short segment occlusion of the left popliteal artery without well-developed collaterals, question embolic occlusion. There is some mild calcific plaquing distal to the occlusion. Only minimal atherosclerotic plaquing is seen elsewhere. 2. Duplication of the renal arteries. 3. Small right pleural effusion. 4. Intrarenal nephrolithiasis right kidney 5. Fatty infiltration of the liver. <Electronically signed by Fred Pierson > 02/23/21 [id number]
[2021-02-23] MEDS ORDERED: ISOVUE-300 61% 50ML VIAL As Ordered ONE ×2 (14:07→16:56)
[2021-02-23] MEDS ORDERED: LIDOCAINE 1% MDV 20ML VIAL As Ordered ONE (14:08)
[2021-02-23] MEDS ORDERED: fentaNYL 100 MCG/2 ML INJECTION (J3010) As Ordered ONE ×2 (14:34→16:04)
[2021-02-23] MEDS ORDERED: MIDAZOLAM INJ 2MG/2ML VIAL (J2250 PER 1MG) As Ordered ONE (14:34)
[2021-02-23 14:47] LABS: BLOOD UREA NITROGEN 15 MG/DL (7-18); CALCIUM LEVEL 9.6 MG/DL (8.5-10.1); CARBON DIOXIDE LEVEL 25 MEQ/L (21-32); CHLORIDE LEVEL 107 MEQ/L (98-107); GLOMERULAR FILTRATION RATE > 60.0 (>56); GLUCOSE, FASTING 134 MG/DL (70-100); POTASSIUM SERUM 4.6 MEQ/L (3.5-5.1); SODIUM LEVEL 140 MEQ/L (136-145)
[2021-02-23] MEDS ORDERED: [UNRECOGNIZED DRUG - OTHER] TOP (14:48)
[2021-02-23] MEDS ORDERED: ACET1TAB55 PO (14:48)
[2021-02-23] MEDS ORDERED: GLUCAGON INJ 1MG VIAL SC PRN (16:15)
[2021-02-23] MEDS ORDERED: ACETAMINOPHEN TAB 650MG DOSE (2X325MG) PO PRN (16:15)
[2021-02-23] MEDS ORDERED: GLUCOSE 4GM CHEW TABLET PO PRN (16:15)
[2021-02-23] MEDS ORDERED: DEXTROSE 50% 50 ML SYRINGE IV PRN (16:15)
[2021-02-23] MEDS ORDERED: ALTEPLASE 2MG/2ML VIAL As Ordered ONE (16:22)
--- NOTE | 2021-02-23 16:48 | HPEPDOC ---
General Date of Admission Feb 23, 2021 at 14:22 Date of Service: Feb 23, 2021 Chief Complaint The patient is a 60-year-old male admitted with a reason for visit of Occlusion Of Left Popliteal Artery. Source: Patient History of Present Illness Mr. Garcia is a 60 year old male with portal vein thrombosis chronically on Xarelto and open heart surgery for bovine aortic valve replacement who is here with left foot pain, paresthesia, and coldness and found to have left popliteal artery occlusion. Patient was out golfing yesterday and started to have left leg pain. He thought it was from muscle strain and continued golfing. As the day progressed, the pain did not improve and he started to have paresthesias. This morning, his symptoms persistent and his foot felt cold. He came into the ED for evaluation. US venous was negative, but CT angio of his left leg was positive for occlusion of the left popliteal artery. Patient was evaluated by IR and was taken down to the IR suite for surgery. Otherwise, when I saw patient, he was in good spirits. Denies any fever/chills, chest pain, dyspnea, abdominal pain, diarrhea, or dysuria. Home Medications Scheduled Amitriptyline HCl (Amitriptyline HCl) 25 Mg Tablet, 25 MG PO QHS, (Reported) Aspirin (Aspirin) 81 Mg Tab.chew, 81 MG PO DAILY, (Reported) Atorvastatin Calcium (Atorvastatin Calcium) 40 Mg Tablet, 40 MG PO QHS, (Reported) Metformin HCl (Metformin HCl ER) 750 Mg Tab.er.24h, 750 MG PO DAILY, (Reported) Metoprolol Tartrate (Metoprolol Tartrate) 25 Mg Tablet, 12.5 MG PO BID, (Reported) Multivitamins (Thera M Plus Tablet) 1 Each Tablet, 1 TAB PO DAILY, (Reported) Rivaroxaban (Xarelto) 20 Mg Tablet, 20 MG PO QHS, (Reported) Scheduled PRN Acetaminophen (Acetaminophen) 325 Mg Tablet, 650 MG PO Q4-6HP PRN for PAIN LEVEL 1-5, (Reported) Menthol (Biofreeze) 118 Ml Gel..ml., 1 APLCT TOP QID PRN for PAIN, (Reported) APPLIES TO BACK [Theraworx Relief] , 1 APLCT TOP DAILY PRN for CRAMPS, (Reported) Allergies Coded Allergies: hydrocodone (Verified Allergy, Unknown, 2/15/20) oxycodone (Verified Adverse Reaction, Intermediate, HALLUCINATIONS, 02/23/21) hydromorphone (Verified Adverse Reaction, Mild, HALLUCINATIONS, 09/26/19) Past Medical History Medical History 1. Diabetes 2. Hypertension 3. Portal vein thrombosis on Xarelto 4. Obesity 5. Nephrolithiasis 6. Cholelithiasis 7. Cardiomegaly 8. Bicuspid aortic valve 9. Spinal stenosis Surgical History 1. Open heart surgery for aortic valve replacement 2. Cholecystectomy Family History Father: History of suicide Mother: History of colon cancer Social History * Smoker: non-smoker Alcohol: Denies Drugs: denies A-FIB/CHADSVASC A-FIB History Current/History of A-Fib/PAF?: No Review of Systems Constitutional: Denies: Chills, Fever Eyes: Denies: Vision change ENT: Denies: Sore Throat Skin: Denies: Rash Pulmonary: Denies: Dyspnea, Cough Cardiovascular: Denies: Chest Pain Gastrointestinal: Denies: Nausea, Abdominal Pain, Diarrhea Genitourinary: Denies: Dysuria Hematologic: Denies: Bruising Musculoskeletal: Reports: Foot Pain (Left), Other Symptoms (left foot paresthesias and coldness) Neurological: Reports: Other Symptoms (paresthesia in left foot) Psych: Denies: Anxiety, Depression Physical Examination General Exam: Positive: Alert, Cooperative Eye Exam: Positive: EOMI; Negative: Sclera icteric ENT Exam: Positive: Atraumatic Neck Exam: Positive: Supple Chest Exam: Positive: Clear to auscultation; Negative: Rales, Rhonchi, Wheezing Heart Exam: Positive: Rate Normal, Regular Rhythm Abdomen Exam: Positive: Normal bowel sounds, Soft; Negative: Tenderness Extremity Exam: Positive: Other (Left foot felt cold) Neuro Exam: Positive: Normal Speech, Cranial Nerves 3-12 NL Psych Exam: Positive: Mental status NL, Mood NL Vital Signs Vital Signs Date Time Temp Pulse Resp B/P (MAP) Pulse Ox O2 Delivery O2 Flow Rate FiO2 02/23/21 12:49 02/23/21 09:36 98.4 87 18 98 Room Air Laboratory Data Labs 24H Laboratory Tests 2 02/23/21 11:58: Anion Gap 8, Glomerular Filtration Rate > 60.0, Calcium Level 9.6 02/23/21 12:31: Immature Granulocyte % (Auto) 0.2, Neutrophils (%) (Auto) 60.0, Lymphocytes (%) (Auto) 29.2, Monocytes (%) (Auto) 8.5H, Eosinophils (%) (Auto) 1.4, Basophils (%) (Auto) 0.7, Neutrophils # (Auto) 4.9, Lymphocytes # (Auto) 2.4, Monocytes # (Auto) 0.7, Eosinophils # (Auto) 0.1, Basophils # (Auto) 0.1, Nucleated Red Blood Cells % (auto) 0.0, Prothrombin Time 16.0H, Prothromb Time International Ratio 1.25, Activated Partial Thromboplast Time 33.2 02/23/21 12:46: POC Glucose (Misc Panel) 146H, POC Sodium (Misc Panel) 140, POC Potassium (Misc Panel) 4.2, POC Chloride (Misc Panel) 102, POC Total CO2 (Misc Panel) 23.0, POC Blood Urea Nitrogen (Misc Panel 16, POC Ionized Calcium (Misc Panel) 4.8, POC Creatinine (Misc Panel) 0.7, POC Hematocrit (Misc Panel) 44.0 02/23/21 14:07: Coronavirus (COVID-19)(PCR) NEGATIVE CBC/BMP Laboratory Tests 02/23/21 11:58 02/23/21 12:31 Assessment/Plan Mr. Garcia is a 60 year old male with portal vein thrombosis chronically on Xarelto and open heart surgery for bovine aortic valve replacement who is here with left foot pain, paresthesia, and coldness and found to have left popliteal artery occlusion. Unclear to the etiology as patient is on both aspirin and Xarelto. Will order hypercoagulable work up. Otherwise, IR took patient to the IR suite today, recommendations appreciated. Plan / VTE VTE Prophylaxis Ordered?: Yes Plan Plan 1. Left popliteal artery occlusion -IR following, recommendations appreciated -Patient took to the OR today -Started hypercoagulable work up 2. History of portal vein thrombosis -On Xarelto outpatient -Currently on heparin drip 3. Non-insulin dependent diabetes mellitus -Sliding scale insulin and carbohydrate consistent diet 4. Hypertension -Continue metoprolol tartrate 5. Hyperlipidemia -Continue atorvastatin 6. DVT ppx -Heparin drip Disposition: Pending surgery LISS JOSEPH DO Feb 23, 2021 15:48
[2021-02-23 17:28] LABS: C REACTIVE PROTEIN QUANTITATIV 0.85 MG/DL (0.00-0.30)
[2021-02-23 18:33] LABS: ERYTHROCYTE SEDIMENTATION RATE 23 mm/hr (0-20)
[2021-02-23 18:40] VITALS: BP 154/75
[2021-02-23] MEDS: HumaLOG INSULIN (NovoLOG) PER UNIT SC SCH ×2 (18:51→21:00)
[2021-02-23] MEDS: NS 1,000 ML IV SCH (18:52)
[2021-02-23 19:25] LABS: INR 1.16; PROTHROMBIN TIME 15.1 SECONDS (12.5-14.3)
[2021-02-23 19:26] LABS: PARTIAL THROMBOPLASTIN TIME 36.1 SECONDS (24.2-38.5)
[2021-02-23 20:00] VITALS: BP 130/76
[2021-02-23] MEDS ORDERED: HEPARIN SOD (PORCINE) 5000UNITS/ML 1ML VIAL/SYRINGE IV PRN (20:05)
[2021-02-23] MEDS: HEPARIN DRIP 25,000 UNITS in IV 1 EA IV SCH (21:03)
[2021-02-23 21:34] LABS: HEMATOCRIT 36.3 % (42.0-52.0); MEAN CORPUSCULAR HEMOGLOBIN 29.2 pg (27.0-33.0); MEAN CORPUSCULAR HGB CONC 33.3 g/dl (32.0-36.5); MEAN CORPUSCULAR VOLUME 87.5 fl (80.0-96.0); PLATELET COUNT, AUTOMATED 289 10^3/uL (150-450); RED BLOOD COUNT 4.15 10^6/uL (4.30-6.10); WHITE BLOOD COUNT 8.7 10^3/uL (4.0-10.0)
[2021-02-23 21:35] LABS: HEMOGLOBIN 12.1 g/dl (13.5-17.5)
[2021-02-23] MEDS: ATORVASTATIN 20 MG TAB PO SCH (21:44)
[2021-02-23] MEDS: METOPROLOL TART 12.5 MG PER 1/2 TAB PO SCH (21:44)
[2021-02-23] MEDS ORDERED: traMADol 50 MG TAB PO PRN (22:20)
[2021-02-23] MEDS: AMITRIPTYLINE 25MG TABLET PO SCH (22:40)
[2021-02-24] VITALS: BP 155/74
[2021-02-24] MEDS: NS 1,000 ML IV SCH (02:55)
[2021-02-24 03:01] LABS: HEMATOCRIT 36.8 % (42.0-52.0); HEMOGLOBIN 12.1 g/dl (13.5-17.5); MEAN CORPUSCULAR HGB CONC 32.9 g/dl (32.0-36.5); MEAN CORPUSCULAR VOLUME 88.2 fl (80.0-96.0); PLATELET COUNT, AUTOMATED 255 10^3/uL (150-450); RED BLOOD COUNT 4.17 10^6/uL (4.30-6.10); WHITE BLOOD COUNT 8.1 10^3/uL (4.0-10.0)
[2021-02-24 03:39] LABS: BLOOD UREA NITROGEN 12 MG/DL (7-18); CALCIUM LEVEL 8.5 MG/DL (8.5-10.1); CARBON DIOXIDE LEVEL 26 MEQ/L (21-32); CHLORIDE LEVEL 107 MEQ/L (98-107); CREATININE FOR GFR 0.79 MG/DL (0.70-1.30); GLOMERULAR FILTRATION RATE > 60.0 (>56); GLUCOSE, FASTING 185 MG/DL (70-100); POTASSIUM SERUM 4.5 MEQ/L (3.5-5.1); SODIUM LEVEL 139 MEQ/L (136-145)
[2021-02-24 04:00] VITALS: BP 140/69
[2021-02-24 08:00] VITALS: BP 125/67
[2021-02-24] MEDS: METOPROLOL TART 12.5 MG PER 1/2 TAB PO SCH ×2 (08:30→21:08)
[2021-02-24] MEDS: MULTIVITAMINS/MINERALS THERAP 1 TAB PO SCH (08:30)
[2021-02-24] MEDS: HumaLOG INSULIN (NovoLOG) PER UNIT SC SCH ×4 (08:30→21:00)
[2021-02-24 12:00] VITALS: BP 117/58
--- NOTE | 2021-02-24 12:01 | IPNPDOC ---
Subjective Date Seen The patient was seen on 02/24/21. Subjective Chief Complaint/HPI Resting comfortable in bed. No new complaints. States left foot feels normal again. Objective Physical Examination General Exam: Positive: Alert, Cooperative Eye Exam: Positive: EOMI; Negative: Sclera icteric ENT Exam: Positive: Atraumatic Neck Exam: Positive: Supple Chest Exam: Positive: Clear to auscultation; Negative: Rales, Rhonchi, Wheezing Heart Exam: Positive: Rate Normal, Regular Rhythm Abdomen Exam: Positive: Normal bowel sounds, Soft; Negative: Tenderness Extremity Exam: Positive: Other (right foot: warm, palp dp/pt pulses, left foot: warm, 1+ dp pulse, biphasic pt doppler signal, no discoloration) Neuro Exam: Positive: Normal Speech, Cranial Nerves 3-12 NL Psych Exam: Positive: Mental status NL, Mood NL Assessment /Plan Assessment S/p Left Popliteal Artery, Posterior Tibial & Peroneal Artery thrombectomy and tPa administration. Clot that was extracted was white and fibrous in nature; most likely emboli and not de etienne thrombosis. Patient's left foot is warm, no neurological deficits, palpable dp pulse. Problems (1) Occlusion of left popliteal artery Onset Date: 02/22/2021 Status: Resolved Response to Treatment: Improving Discussed With: Patient Plan/VTE VTE Prophylaxis Ordered?: Yes Plan continue anticoagulation, may switch to PO anticoagulation after cardiac echo results. VS, I&O, 24H, Fishbone Vital Signs/I&O Vital Signs Date Time Temp Pulse Resp B/P (MAP) Pulse Ox O2 Delivery O2 Flow Rate FiO2 02/24/21 08:30 100 125/67 02/24/21 08:00 97.8 17 95 Room Air 02/23/21 17:35 2.0 I&O- Last 24 Hours up to 6 AM 02/24/21 06:00 Intake Total 448 ml Balance 448 ml Laboratory Data 24H LABS Laboratory Tests 2 02/23/21 11:58: Anion Gap 8, Glomerular Filtration Rate > 60.0, Calcium Level 9.6, C-Reactive Protein, Quantitative 0.85H 02/23/21 12:31: Immature Granulocyte % (Auto) 0.2, Neutrophils (%) (Auto) 60.0, Lymphocytes (%) (Auto) 29.2, Monocytes (%) (Auto) 8.5H, Eosinophils (%) (Auto) 1.4, Basophils (%) (Auto) 0.7, Neutrophils # (Auto) 4.9, Lymphocytes # (Auto) 2.4, Monocytes # (Auto) 0.7, Eosinophils # (Auto) 0.1, Basophils # (Auto) 0.1, Nucleated Red Blood Cells % (auto) 0.0, Erythrocyte Sedimentation Rate 23H, Prothrombin Time 16.0H, Prothromb Time International Ratio 1.25, Activated Partial Thromboplast Time 33.2 02/23/21 12:46: POC Glucose (Misc Panel) 146H, POC Sodium (Misc Panel) 140, POC Potassium (Misc Panel) 4.2, POC Chloride (Misc Panel) 102, POC Total CO2 (Misc Panel) 23.0, POC Blood Urea Nitrogen (Misc Panel 16, POC Ionized Calcium (Misc Panel) 4.8, POC Creatinine (Misc Panel) 0.7, POC Hematocrit (Misc Panel) 44.0 02/23/21 14:07: Coronavirus (COVID-19)(PCR) NEGATIVE 02/23/21 19:03: Prothrombin Time 15.1H, Prothromb Time International Ratio 1.16, Activated Partial Thromboplast Time 36.1 02/23/21 20:49: Activated Partial Thromboplast Time 33.2, Nucleated Red Blood Cells % (auto) 0.0 02/23/21 21:25: Bedside Glucose (Misc Panel) 140H 02/24/21 02:45: Activated Partial Thromboplast Time 77.6H, Nucleated Red Blood Cells % (auto) 0.0, Anion Gap 6L, Glomerular Filtration Rate > 60.0, Calcium Level 8.5 02/24/21 08:56: Activated Partial Thromboplast Time 91.5H CBC/BMP Laboratory Tests 02/23/21 11:58 02/23/21 12:31 02/23/21 20:49 02/24/21 02:45 AUGUSTINE KIRKLAND MD Feb 24, 2021 12:01
[2021-02-24] MEDS: HEPARIN DRIP 25,000 UNITS in IV 1 EA IV SCH (12:24)
--- NOTE | 2021-02-24 13:34 | IPNPDOC ---
Subjective Date Seen The patient was seen on 02/24/21. Subjective Chief Complaint/HPI Mr. Garcia is a 60 year old male with portal vein thrombosis chronically on Xarelto and open heart surgery for bovine aortic valve replacement who is here with left foot pain, paresthesia, and coldness and found to have left popliteal artery occlusion. Yesterday, patient had left popliteal artery, posterior tibial, and peroneal artery thrombectomy and tPa administration by Dr. Manning on 02/23/21. Clot was fibrous and most likely emboli per vascular surgery. This morning, he is feeling better. I was able to palpate left dorsal pedis artery. I reached out to oncology/hematology, Dr. Elise who will see patient tomorrow. Recommending switching to Lovenox, and possibly warfarin pending on hypercoagulable work up. Recommended continuing aspirin. Objective Physical Examination General Exam: Positive: Alert, Cooperative Eye Exam: Positive: EOMI; Negative: Sclera icteric ENT Exam: Positive: Atraumatic Neck Exam: Positive: Supple Chest Exam: Positive: Clear to auscultation; Negative: Rales, Rhonchi, Wheezing Heart Exam: Positive: Rate Normal, Regular Rhythm Abdomen Exam: Positive: Normal bowel sounds, Soft; Negative: Tenderness Neuro Exam: Positive: Normal Speech, Cranial Nerves 3-12 NL Psych Exam: Positive: Mental status NL, Mood NL Assessment /Plan Assessment Mr. Garcia is a 60 year old male with portal vein thrombosis chronically on Xarelto and open heart surgery for bovine aortic valve replacement who is here with left foot pain, paresthesia, and coldness and found to have left popliteal artery occlusion. Unclear to the etiology as patient is on both aspirin and Xarelto. Reached out to hematology/oncology, Dr. Elise, who will see the patient tomorrow. Recommending aspirin and Lovenox. Will determine if patient will need to be switched over to warfarin pending hypercoagulable results. Otherwise, patient had left popliteal artery, posterior tibial, and peroneal artery thrombectomy and tPa administration by Dr. Manning on 02/23/21. Clot was fibrous and most likely emboli per vascular surgery. Plan/VTE VTE Prophylaxis Ordered?: Yes Disposition 1. Left popliteal artery occlusion -IR following, recommendations appreciated -Left popliteal artery, posterior tibial, and peroneal artery thrombectomy and tPa administration by Dr. Manning on 02/23/21 -Started hypercoagulable work up -Oncology/Hematology, Dr. Elise consulted, recommendations appreciated 2. History of portal vein thrombosis -On Xarelto outpatient -Currently on heparin drip. Switching to Lovenox 3. Non-insulin dependent diabetes mellitus -Sliding scale insulin and carbohydrate consistent diet 4. Hypertension -Continue metoprolol tartrate 5. Hyperlipidemia -Continue atorvastatin 6. Bovine heart replacement -Will restart aspirin 7. DVT ppx -Lovenox VS, I&O, 24H, Fishbone Vital Signs/I&O Vital Signs Date Time Temp Pulse Resp B/P (MAP) Pulse Ox O2 Delivery O2 Flow Rate FiO2 02/24/21 12:00 97.9 61 17 117/58 (77) 96 Room Air 02/23/21 17:35 2.0 I&O- Last 24 Hours up to 6 AM 02/24/21 06:00 Intake Total 448 ml Balance 448 ml Laboratory Data 24H LABS Laboratory Tests 2 02/23/21 14:07: Coronavirus (COVID-19)(PCR) NEGATIVE 02/23/21 19:03: Prothrombin Time 15.1H, Prothromb Time International Ratio 1.16, Activated Partial Thromboplast Time 36.1 02/23/21 20:49: Activated Partial Thromboplast Time 33.2, Nucleated Red Blood Cells % (auto) 0.0 02/23/21 21:25: Bedside Glucose (Misc Panel) 140H 02/24/21 02:45: Nucleated Red Blood Cells % (auto) 0.0, Activated Partial Thromboplast Time 77.6H, Anion Gap 6L, Glomerular Filtration Rate > 60.0, Calcium Level 8.5 02/24/21 08:56: Activated Partial Thromboplast Time 91.5H 02/24/21 11:52: Bedside Glucose (Misc Panel) 149H CBC/BMP Laboratory Tests 02/23/21 20:49 02/24/21 02:45 LISS JOSEPH DO Feb 24, 2021 13:34
[2021-02-24] MEDS ORDERED: LOVE0.01 SC (14:17)
--- NOTE | 2021-02-24 15:39 | ROOPDOC ---
[facility] Report Of Operation Report of Operation DATE OF PROCEDURE: 02/24/2021 PREPROCEDURE DIAGNOSES: Left Popliteal Artery Occlusion POSTPROCEDURE DIAGNOSES: Left Popliteal Artery Occlusion PROCEDURE PERFORMED: 1. Left Popliteal Artery Percutaneous Thrombectomy 2. Left TibioPeroneal Trunk Percutaneous Thrombectomy 3. Left Posterior Tibial Artery Percutaneous Thrombectomy 4. Left Peroneal Artery Percutaneous Thrombectomy 5. Left Leg Angiogram 6. Aortogram 7. Ultrasound Guided Percutaneous Entry SURGEON: Augustine Manning MD ANESTHESIA: Local and sedation ESTIMATED BLOOD LOSS: Approximately 250mL. COMPLICATIONS: None FINDINGS: Occlusion of left popliteal artery which migrated to tibial vessels during treatment. Post procedure, good flow in WENDY to foot, HAND CLIPPER & Peroneal with some residual disease at origin but with reconstitution and flow to foot. SPECIMENS REMOVED: White fibrous emboli DESCRIPTION OF PROCEDURE: The patient was brought to the Angio suite and placed on the operating table in supine position. The patients groins were prepped and draped in standard surgical fashion. Moderate sedation was initiated and local anesthetic was administered at the right groin puncture site. Under ultrasound guidance, percutaneous entry into the right common femoral artery was performed using a micropuncture needle. Over a guidewire exchange, a 5-Macedonian pinnacle sheath was inserted. An angled Glidewire and a flush catheter were introduced into the sheath and advanced into the aorta. Angiography of the aorta was performed and revealed normal sized aorta and patent bilateral iliac runoff. Using the angled-tip Glidewire and the flush catheter, the aortic bifurcation was engaged and the wire was advanced to the left external iliac artery. The catheter was then advanced and positioned in the same location and the Glidewire was removed. Contrast angiography of the left lower extremity was then performed and revealed a patent common femoral artery, Profunda Femoris artery and proximal SFA. The catheter was advanced into the proximal SFA and repeat angiography revealed a patent mid to distal SFA with occlusion of the mid-popliteal artery. The below knee runoff showed patent anterior tibial artery, posterior tibial artery and peroneal artery with an intact pedal arch. The patient was given a bolus of IV Heparin and additional dosages were administered throughout the case to ensure adequate anticoagulation. A 0.035 stiff glide wire was placed into the catheter and over guidewire exchange the flush catheter and sheath were exchanged for a long 6 Fr destination sheath. The Penumbra Cat 6 thrombectomy device was then placed over the wire and placed just above the popliteal thromboemboli. Thrombectomy of the popliteal artery was performed with several passes. Post-procedure angiography revealed resolution of thrombus in the popliteal artery, however some of the thrombus had dislodged to the TPT and at the origins of the HAND CLIPPER and Peroneal artery. The patient was administered 4mg of tPa directly into the TPT embolus. Thrombectomy was performed again with resolution of the TPT embolus, but persistent tibial emboli. An additional 4mg of tPa was administered at the tibial bifurcation and thrombectomy was performed in both the Peroneal Artery and Posterior Tibial Artery with improved outcome. A final angiogram was performed and revealed good flow in the WENDY and some residual clot at the origin of the HAND CLIPPER and Peroneal artery but with good flow into the foot. The catheters and wires were then removed and under fluoroscopic guidance the 6Fr sheath was retracted over the aortic bifurcation and removed. A Mynx closur e device was used at the puncture site and a sterile dressing was then placed. The patient tolerated the procedure well and transferred to the recovery area in stable condition. AUGUSTINE MANNING MD Feb 24, 2021 15:39
[2021-02-24 16:00] VITALS: BP 109/54
[2021-02-24] MEDS: ASPIRIN 81MG ENTERIC TABLET PO SCH (18:28)
--- NOTE | 2021-02-24 18:38 | CR.PDOC ---
General Date of Consultation: Feb 24, 2021 Referring Provider: LISS RODRIGUEZ DO Primary Care Physician: Jr Mata Collins Attending Physician: LISS RODRIGUEZ DO Consultation REASON FOR CONSULTATION: Anticoagulation for left popliteal artery thromboembolism. HISTORY OF PRESENT ILLNESS: Mr. Garcia is a 60-year-old man with a history of portal vein thrombosis diagnosed in 2004 for which he was initially on warfarin and eventually switched to rivaroxaban. He is currently admitted for thromboembolism to left lower extremity despite being on rivaroxaban anticoagulation. He underwent thrombectomy with TPA administration 02/24/2021 for left popliteal artery occlusion. Symptom rizo left foot symptoms have improved. An echocardiogram has been ordered as per Dr. Rodriguez's note. ALLERGIES: Please see below. HOME MEDICATIONS: Please see below. PAST MEDICAL HISTORY: Diabetes mellitus. Hypertension. Hyperlipidemia. Bovine aortic valve replacement. FAMILY HISTORY: Mother had colon cancer. No history of blood clots/thromboembolic disease in family. SOCIAL HISTORY: . Does not smoke. Does not drink. 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 REVIEW OF SYSTEMS: CONSTITUTIONAL: No fevers. No night sweats. No weight loss. HEENT: No eyesight changes. No headaches. CARDIOVASCULAR: No chest pain. No shortness of breath. RESPIRATORY: No dyspnea. No cough. GENITOURINARY: No urinary problems. MUSCULOSKELETAL: Reports no back pain. GASTROINTESTINAL: Reports no nausea. No vomiting. No abdominal pain. No diarrhea. No constipation. SKIN: No skin rash. NEUROLOGICAL: No headaches. PSYCHIATRIC: No mood changes. ENDOCRINE: No cold intolerance. No heat intolerance. HEMATOLOGIC/LYMPHATIC: No bleeding problems. PHYSICAL EXAMINATION: VITAL SIGNS: Please see below. GENERAL APPEARANCE: Lying comfortably in bed, not in distress, answered questions appropriately. HEENT: Pinkish conjunctive anicteric. Moist oral mucosa. RESPIRATORY: Lungs are clear. No rales no rhonchi no wheeze. CARDIOVASCULAR: S1-S2 regular. ABDOMEN: Soft, nontender, no guarding. Active bowel sounds. EXTREMITIES: No calf swelling, no calf tenderness, no pedal edema. No cyanosis. NEUROLOGICAL: Alert, oriented to time place and person. PSYCHIATRIC: Normal mood LABORATORY DATA: Please see below. ASSESSMENT/PLAN: 60-year-old on long-term rivaroxaban anticoagulation for portal vein thrombosis diagnosed in 2004. Developed left popliteal artery thromboembolism despite being on anticoagulati on. CT angiography abdominal arteries 02/23/2021 showed abrupt short segment occlusion of left popliteal artery without well-developed collaterals question embolic occlusion. On heparin drip. Underwent thrombectomy with TPA administration 02/24/2021 for left popliteal artery occlusion. I have recommended switching to low molecular weight heparin therapeutic dose. Plan to continue this for at least 3 months. Continue aspirin. Thrombophilia testing results pending as of this time. Will arrange follow-up appointment as an outpatient. Thank you for referring Mr. Jose Manuel Garcia. Vital Signs/I&O Vital Signs Date Time Temp Pulse Resp B/P (MAP) Pulse Ox O2 Delivery O2 Flow Rate FiO2 02/24/21 16:00 97.7 83 16 109/54 (72) 95 Room Air 02/23/21 17:35 2.0 I&O- Last 24 Hours up to 6 AM 02/24/21 06:00 Intake Total 448 ml Balance 448 ml Laboratory Data Labs 24H Laboratory Tests 2 02/23/21 19:03: Prothrombin Time 15.1H, Prothromb Time International Ratio 1.16, Activated Partial Thromboplast Time 36.1 02/23/21 20:49: Activated Partial Thromboplast Time 33.2, Nucleated Red Blood Cells % (auto) 0.0 02/23/21 21:25: Bedside Glucose (Misc Panel) 140H 02/24/21 02:45: Activated Partial Thromboplast Time 77.6H, Nucleated Red Blood Cells % (auto) 0.0, Anion Gap 6L, Glomerular Filtration Rate > 60.0, Calcium Level 8.5 02/24/21 08:56: Activated Partial Thromboplast Time 91.5H 02/24/21 11:52: Bedside Glucose (Misc Panel) 149H 02/24/21 17:15: Bedside Glucose (Misc Panel) 111H CBC/BMP Laboratory Tests 02/23/21 20:49 02/24/21 02:45 Allergies Coded Allergies: hydrocodone (Verified Allergy, Unknown, 09/26/19) oxycodone (Verified Adverse Reaction, Intermediate, HALLUCINATIONS, 02/23/21) hydromorphone (Verified Adverse Reaction, Mild, HALLUCINATIONS, 09/26/19) Home Medications Scheduled Amitriptyline HCl (Amitriptyline HCl) 25 Mg Tablet, 25 MG PO QHS, (Reported) Aspirin (Aspirin) 81 Mg Tab.chew, 81 MG PO DAILY, (Reported) Atorvastatin Calcium (Atorvastatin Calcium) 40 Mg Tablet, 40 MG PO QHS, (Reported) Enoxaparin Sodium (Lovenox) 120 Mg/0.8 Ml Syringe, 110 MG SC Q12H for 30 Days, #60 Metformin HCl (Metformin HCl ER) 750 Mg Tab.er.24h, 750 MG PO DAILY, (Reported) Metoprolol Tartrate (Metoprolol Tartrate) 25 Mg Tablet, 12.5 MG PO BID, (Reported) Multivitamins (Thera M Plus Tablet) 1 Each Tablet, 1 TAB PO DAILY, (Reported) Rivaroxaban (Xarelto) 20 Mg Tablet, 20 MG PO QHS, (Reported) Scheduled PRN Acetaminophen (Acetaminophen) 325 Mg Tablet, 650 MG PO Q4-6HP PRN for PAIN LEVEL 1-5, (Reported) Menthol (Biofreeze) 118 Ml Gel..ml., 1 APLCT TOP QID PRN for PAIN, (Reported) APPLIES TO BACK [Theraworx Relief] , 1 APLCT TOP DAILY PRN for CRAMPS, (Reported) ЕЛЕНА SMITH MD FACP Feb 24, 2021 18:38
[2021-02-24 20:00] VITALS: BP 130/65
[2021-02-24] MEDS: ENOXAPARIN 120MG/0.8ML SYRINGE (J1650 PER 10MG) SC SCH (21:07)
[2021-02-24] MEDS: AMITRIPTYLINE 25MG TABLET PO SCH (21:08)
[2021-02-24] MEDS: ATORVASTATIN 20 MG TAB PO SCH (21:08)
[2021-02-24] MEDS ORDERED: VANCOMYCIN HCL 1,000 MG, VIAL MATE ADAPTER 1 EACH in NS 250 ML IV ONE (21:25)
--- NOTE | 2021-02-24 21:26 | IPNPDOC ---
Text Note Date of Service The patient was seen on 02/24/21. NOTE called me to inform me that the patient has an aortic valve vegetaion he recommended ADRIAN, ERS, CRP, blood cx, starting Abx and consulting ID; ADRIAN was discussed with . I will place urgent orders and sign out to . VS,Arline, I+O VS, Arline, I+O Laboratory Tests 02/24/21 02:45 Vital Signs Date Time Temp Pulse Resp B/P (MAP) Pulse Ox O2 Delivery O2 Flow Rate FiO2 02/24/21 21:08 80 130/65 02/24/21 20:00 97.4 18 97 Room Air 02/23/21 17:35 2.0 I&O- Last 24 Hours up to 6 AM 02/24/21 06:00 Intake Total 448 ml Balance 448 ml VIRGINIA FREEMAN MD Feb 24, 2021 21:26
[2021-02-24] MEDS: VANCOMYCIN HCL 1,000 MG, VIAL MATE ADAPTER 1 EACH in NS 250 ML IV SCH (23:13)
[2021-02-25] VITALS: BP 113/59
[2021-02-25 04:00] VITALS: BP 119/66
[2021-02-25 05:16] LABS: HEMATOCRIT 37.5 % (42.0-52.0); HEMOGLOBIN 12.4 g/dl (13.5-17.5); MEAN CORPUSCULAR HGB CONC 33.1 g/dl (32.0-36.5); MEAN CORPUSCULAR VOLUME 87.6 fl (80.0-96.0); PLATELET COUNT, AUTOMATED 253 10^3/uL (150-450); RED BLOOD COUNT 4.28 10^6/uL (4.30-6.10); WHITE BLOOD COUNT 6.8 10^3/uL (4.0-10.0)
[2021-02-25 05:35] LABS: ERYTHROCYTE SEDIMENTATION RATE 28 mm/hr (0-20)
[2021-02-25 05:39] LABS: BLOOD UREA NITROGEN 10 MG/DL (7-18); C REACTIVE PROTEIN QUANTITATIV 1.26 MG/DL (0.00-0.30); CALCIUM LEVEL 8.7 MG/DL (8.5-10.1); CARBON DIOXIDE LEVEL 28 MEQ/L (21-32); CHLORIDE LEVEL 109 MEQ/L (98-107); CREATININE FOR GFR 0.72 MG/DL (0.70-1.30); GLOMERULAR FILTRATION RATE > 60.0 (>56); GLUCOSE, FASTING 144 MG/DL (70-100); POTASSIUM SERUM 3.9 MEQ/L (3.5-5.1); SODIUM LEVEL 141 MEQ/L (136-145)
[2021-02-25] MEDS: HumaLOG INSULIN (NovoLOG) PER UNIT SC SCH ×4 (07:30→20:12)
[2021-02-25 08:00] VITALS: BP 129/74
[2021-02-25] MEDS: ASPIRIN 81MG ENTERIC TABLET PO SCH (08:49)
[2021-02-25] MEDS: MULTIVITAMINS/MINERALS THERAP 1 TAB PO SCH (08:49)
[2021-02-25] MEDS: METOPROLOL TART 12.5 MG PER 1/2 TAB PO SCH ×2 (08:49→20:12)
[2021-02-25] MEDS: ENOXAPARIN 120MG/0.8ML SYRINGE (J1650 PER 10MG) SC SCH ×2 (08:50→20:11)
[2021-02-25] MEDS: VANCOMYCIN HCL 1,000 MG, VIAL MATE ADAPTER 1 EACH in NS 250 ML IV SCH (08:50)
[2021-02-25] MEDS ORDERED: fentaNYL 100 MCG/2 ML INJECTION (J3010) As Ordered ONE (10:29)
[2021-02-25] MEDS ORDERED: MIDAZOLAM INJ 2MG/2ML VIAL (J2250 PER 1MG) As Ordered ONE (10:29)
[2021-02-25] MEDS ORDERED: LIDOCAINE 2% 100MG/5ML SDV (FOR ANES.) As Ordered ONE (10:31)
[2021-02-25] MEDS ORDERED: propofoL 200 MG/20 ML VIAL As Ordered ONE (10:31)
--- NOTE | 2021-02-25 10:58 | ECHO ---
ECHOCARDIOGRAM DATE OF PROCEDURE: 02/24/2021 Age: 60 Gender: Male Height: 65 inches Weight: 238 pounds, body surface area 2.13 m2 PATIENT LOCATION: Inpatient PCU Room 3211 REFERRING PHYSICIAN: Naveed Rodriguez M.D. INDICATION: Arterial occlusion. MEASUREMENTS: 2D Measurements: RV - 3.8 cm LV - 4.7 cm Septum 1.4 cm Posterior wall 1.4 cm Aortic root 3.1 cm LA - 5.2 cm LVEF 75% Doppler Measurements: AV - 2.64 m/sec LVOT - off angle Mean AV systolic gradient 18 mmHg MV-E 72, A 90, EA ratio 0.8 Early mitral deceleration time 116 msec E prime medial 7.4 A prime medial 10 E prime lateral 6.6 Average E/E prime ratio 10.2/PCWP 14.6 mmHg PV 0.8 m/sec Pulmonary artery acceleration time 120 msec RVSP 32 mmHg IVC - 1.5 cm COMMENTS: Normal sinus rhythm with right bundle branch block. Technically difficult study in light of the patient's body habitus, but useful diagnostic information was obtained. M-mode and 2-dimensional echocardiography was performed with pulse, continuous wave, color flow and tissue Doppler studies. Moderate left ventricular hypertrophy with hyperkinetic wall motion. At least moderately dilated left atrium with grade 1 left ventricular (LV) diastolic dysfunction and current estimated mean left atrial pressure upper limits of normal. Normal right heart chamber sizes and motion with Doppler evidence of mild pulmonary hypertension. Normal inferior vena cava (IVC) size and collapse against an elevated central venous pressure at this time. Normal aortic dimensions. Three equal size aortic cusps with asymmetrical thickening and some reduced separation of the cusps with Doppler evidence of at least mild aortic stenosis. A separate 1 cm x 0. 5 cm vegetation appeared to be connected to the noncoronary cusp of the aortic valve and lay in the left ventricular outflow tract. There was only very mild associated aortic insufficiency. There were mild degenerative changes of his mitral valvular apparatus with adequate leaflet excursion and no posterior systolic buckling. Only very mild insufficiency could be visualized. Normal appearing tricuspid valve with mild insufficiency. No pericardial effusion. A preliminary report of this study was relayed to Dr. Nassar, hospitalist covering Dr. Rodriguez. Complete blood count, sedimentation rate or C-reactive protein with two separate sets of blood cultures were advised, along with a transesophageal echocardiogram to further evaluate his aortic valve.
[2021-02-25] MEDS ORDERED: LIDOCAINE VISCOUS 2% SOLN 15ML UDC As Ordered ONE (11:20)
[2021-02-25] MEDS ORDERED: CETACAINE SPRAY 5GM As Ordered ONE (11:20)
[2021-02-25] MEDS ORDERED: ONDANSETRON 4MG/2ML VIAL IV PRN (12:45)
[2021-02-25] MEDS ORDERED: LR 1,000 ML IV SCH (12:45)
[2021-02-25 13:12] VITALS: BP 146/80
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
--- NOTE | 2021-02-25 15:11 | IPNPDOC ---
Subjective Date Seen The patient was seen on 02/25/21. Subjective Chief Complaint/HPI Mr. Garcia is a 60 year old male with portal vein thrombosis chronically on Xarelto and open heart surgery for bovine aortic valve replacement who is here with left foot pain, paresthesia, and coldness and found to have left popliteal artery occlusion. Yesterday, patient had TTE which demonstrated a vegetation on the aortic valve. The warehouse shipping supervisor contacted the night attending recommending ESR, CRP and TTE. This morning, patient denies any chest pain or dyspnea. I explained to patient about his vegetation and the need for a ADRIAN which he was agreeable. I reached out to the warehouse shipping supervisor cable television program director, Dr. Mitchell. He came to see the patient and to do a ADRIAN today. Otherwise, I discussed the case with ID, Dr. Yousif. Patient does not have signs of infection (such as fever, leukocytosis, or high ESR or CRP). Will discontinue vancomycin. Plan to repeated blood cultures on Saturday or sooner if patient developed a fever or other signs of infection. If patient starts to have signs of infection, patient can be restarted on antibiotics. Objective Physical Examination General Exam: Positive: Alert, Cooperative Eye Exam: Positive: EOMI; Negative: Sclera icteric ENT Exam: Positive: Atraumatic Neck Exam: Positive: Supple Chest Exam: Positive: Clear to auscultation; Negative: Rales, Rhonchi, Wheezing Heart Exam: Positive: Rate Normal, Regular Rhythm Abdomen Exam: Positive: Normal bowel sounds, Soft; Negative: Tenderness Neuro Exam: Positive: Normal Speech, Cranial Nerves 3-12 NL Psych Exam: Positive: Mental status NL, Mood NL Assessment /Plan Assessment Mr. Garcia is a 60 year old male with portal vein thrombosis chronically on Xarelto and open heart surgery for bovine aortic valve replacement who is here with left foot pain, paresthesia, and coldness and found to have left popliteal artery occlusion. Unclear to the etiology as patient is on both aspirin and Xarelto. Reached out to hematology/oncology, Dr. Elise, who recommended aspirin and Lovenox. Hypercoagulable work up initiated. Otherwise, patient had left popliteal artery, posterior tibial, and peroneal artery thrombectomy and tPa administration by Dr. Manning on 02/23/21. Clot was fibrous and most likely emboli per vascular surgery. Ordered echocardiogram to look for emboli. Instead, it demonstrated aortic valve vegetation. Patient to have ADRIAN 02/25/21. Otherwise, discussed case with ID. Patient has no signs of infection. Okay to discontinue antibiotics. Repeat blood culture on Saturday or soon if develops signs of infection. Plan/VTE VTE Prophylaxis Ordered?: Yes Plan 1. Left popliteal artery occlusion -IR following, recommendations appreciated -Left popliteal artery, posterior tibial, and peroneal artery thrombectomy and tPa administration by Dr. Manning on 02/23/21 -Started hypercoagulable work up -Oncology/Hematology, Dr. Elise consulted, recommendations appreciated -Continue aspirin and Lovenox 2. Aortic valve vegetation -1cm by 0.5cm vegetation on aortic valve -Very mild aortic insufficiency -Cardiology, Dr. Mitchell consulted, recommendations appreciated -ADRIAN 02/25/21 -ID, Dr. Yousif, consulted, recommendations appreciated 3. History of portal vein thrombosis -On Xarelto outpatient -On full dose Lovenox 4. Non-insulin dependent diabetes mellitus -Sliding scale insulin and carbohydrate consistent diet 5. Hypertension -Continue metoprolol tartrate 6. Hyperlipidemia -Continue atorvastatin 7. Bovine heart replacement -Continue aspirin and full dose Lovenox 8. DVT ppx -Lovenox Disposition: Pending ADRIAN and blood culture results [facility] Vital Signs Date Time Temp Pulse Resp B/P (MAP) Pulse Ox O2 Delivery O2 Flow Rate FiO2 02/25/21 13:12 98.1 80 18 146/80 (102) 94 Room Air 02/23/21 17:35 2.0 I&O- Last 24 Hours up to 6 AM 02/25/21 06:00 Intake Total 2082 ml Output Total 2275 ml Balance -193 ml Laboratory Data 24H LABS Laboratory Tests 2 02/24/21 17:15: Bedside Glucose (Misc Panel) 111H 02/24/21 21:05: Bedside Glucose (Misc Panel) 216H 02/24/21 21:21: Erythrocyte Sedimentation Rate 35H, C-Reactive Protein, Quantitative 1.22H 02/25/21 04:50: Erythrocyte Sedimentation Rate 28H, C-Reactive Protein, Quantitative 1.26H, Nucleated Red Blood Cells % (auto) 0.0, Anion Gap 4L, Glomerular Filtration Rate > 60.0, Calcium Level 8.7 02/25/21 06:13: Methicillin-Resist S.aureus DNA PCR NOT DETECTED 02/25/21 13:59: Bedside Glucose (Misc Panel) 120H CBC/BMP Laboratory Tests 02/25/21 04:50 Microbiology Microbiology 02/24/21 Blood Culture, Received Pending 02/24/21 Blood Culture, Received Pending LISS JOSEPH DO Feb 25, 2021 14:40
[2021-02-25 16:00] VITALS: BP_SYST 132; BP_SYST 140; BP_DIAS 80; BP_DIAS 86
[2021-02-25 20:00] VITALS: BP 134/72
[2021-02-25] MEDS: ATORVASTATIN 20 MG TAB PO SCH (20:11)
[2021-02-25] MEDS: AMITRIPTYLINE 25MG TABLET PO SCH (20:11)
[2021-02-26] VITALS: BP 137/65
[2021-02-26 04:00] VITALS: BP 140/78
[2021-02-26 05:44] LABS: HEMOGLOBIN 12.2 g/dl (13.5-17.5); MEAN CORPUSCULAR HEMOGLOBIN 29.1 pg (27.0-33.0); MEAN CORPUSCULAR VOLUME 88.3 fl (80.0-96.0); PLATELET COUNT, AUTOMATED 279 10^3/uL (150-450); RED BLOOD COUNT 4.19 10^6/uL (4.30-6.10); WHITE BLOOD COUNT 7.4 10^3/uL (4.0-10.0)
[2021-02-26 05:59] LABS: INR 0.99; PROTHROMBIN TIME 13.3 SECONDS (12.5-14.3)
[2021-02-26 06:00] LABS: PARTIAL THROMBOPLASTIN TIME 45.9 SECONDS (24.2-38.5)
[2021-02-26 06:05] LABS: BLOOD UREA NITROGEN 11 MG/DL (7-18); C REACTIVE PROTEIN QUANTITATIV 1.25 MG/DL (0.00-0.30); CALCIUM LEVEL 8.8 MG/DL (8.5-10.1); CARBON DIOXIDE LEVEL 29 MEQ/L (21-32); CHLORIDE LEVEL 108 MEQ/L (98-107); CREATININE FOR GFR 0.74 MG/DL (0.70-1.30); GLOMERULAR FILTRATION RATE > 60.0 (>56); GLUCOSE, FASTING 140 MG/DL (70-100); POTASSIUM SERUM 3.9 MEQ/L (3.5-5.1); SODIUM LEVEL 141 MEQ/L (136-145)
[2021-02-26 06:09] LABS: ERYTHROCYTE SEDIMENTATION RATE 34 mm/hr (0-20)
[2021-02-26 08:00] VITALS: BP 116/70
[2021-02-26] MEDS: MULTIVITAMINS/MINERALS THERAP 1 TAB PO SCH (08:31)
[2021-02-26] MEDS: METOPROLOL TART 12.5 MG PER 1/2 TAB PO SCH ×2 (08:31→20:14)
[2021-02-26] MEDS: HumaLOG INSULIN (NovoLOG) PER UNIT SC SCH ×4 (08:32→21:00)
[2021-02-26] MEDS: ASPIRIN 81MG ENTERIC TABLET PO SCH (08:32)
[2021-02-26] MEDS: ENOXAPARIN 120MG/0.8ML SYRINGE (J1650 PER 10MG) SC SCH ×2 (08:33→20:13)
--- NOTE | 2021-02-26 10:02 | IPNPDOC ---
Subjective Date Seen The patient was seen on 02/26/21. Subjective Chief Complaint/HPI Mr. Garcia is a 60 year old male with portal vein thrombosis chronically on Xarelto and open heart surgery for bovine aortic valve replacement who is here with left foot pain, paresthesia, and coldness and found to have left popliteal artery occlusion. Yesterday evening, patient had ADRIAN. Pending ADRIAN results. This morning, patient denies any chest pain or dyspnea. His left foot feel better and is warm. I spoke with Dr. Mitchell. There was a small vegetation on the valve, but the most concerning findings was the severe aortic stenosis. The mean gradient was >40. Patient will need a valve replacement. This is the second time that this has happened. Patient may have a hypercoagulable disease. Pending hypercoagulable work up at this time. Dr. Mitchell had spoken with patient's cardiac surgeon at [facility], Dr. Kendall, who has accepted the patient. Anticipate transfer on Saturday. Objective Physical Examination General Exam: Positive: Alert, Cooperative Eye Exam: Positive: EOMI; Negative: Sclera icteric ENT Exam: Positive: Atraumatic Neck Exam: Positive: Supple Chest Exam: Positive: Clear to auscultation; Negative: Rales, Rhonchi, Wheezing Heart Exam: Positive: Rate Normal, Regular Rhythm Abdomen Exam: Positive: Normal bowel sounds, Soft; Negative: Tenderness Neuro Exam: Positive: Normal Speech, Cranial Nerves 3-12 NL Psych Exam: Positive: Mental status NL, Mood NL Assessment /Plan Assessment Mr. Garcia is a 60 year old male with portal vein thrombosis chronically on Xarelto and open heart surgery for bovine aortic valve replacement who is here with left foot pain, paresthesia, and coldness and found to have left popliteal artery occlusion. Unclear to the etiology as patient is on both aspirin and Xarelto. Reached out to hematology/oncology, Dr. Elise, who recommended aspirin and Lovenox. Hypercoagulable work up initiated. Otherwise, patient had left popliteal artery, posterior tibial, and peroneal artery thrombectomy and tPa administration by Dr. Manning on 02/23/21. Clot was fibrous and most likely emboli per vascular surgery. Ordered echocardiogram to look for emboli. Instead, it demonstrated aortic valve vegetation. Patient had ADRIAN 02/25/21. Otherwise, discussed case with ID. Patient has no signs of infection. Okay to discontinue antibiotics. Repeat blood culture on Saturday or sooner if develops signs of infection. The most concerning finding on the ADRIAN was the severe aortic stenosis. The mean gradient was >40. Patient will need a valve replacement. This is the second time that this has happened. Patient may have a hypercoagulable disease. Pending hypercoagulable work up at this time. Dr. Mitchell had spoken with patient's cardiac surgeon at [facility], Dr. Kendall, who has accepted the patient. Anticipate transfer on Saturday. Plan/VTE VTE Prophylaxis Ordered?: Yes Plan 1. Left popliteal artery occlusion -IR following, recommendations appreciated -Left popliteal artery, posterior tibial, and peroneal artery thrombectomy and tPa administration by Dr. Manning on 02/23/21 -Started hypercoagulable work up -Oncology/Hematology, Dr. Elise consulted, recommendations appreciated -Continue aspirin and Lovenox 2. Aortic valve vegetation -1cm by 0.5cm vegetation on aortic valve -Cardiology, Dr. Mitchell consulted, recommendations appreciated -ADRIAN 02/25/21 -ID, Dr. Yousif, consulted, recommendations appreciated -No signs of infection. Repeat blood cultures on Saturday 3. History of portal vein thrombosis -On Xarelto outpatient -On full dose Lovenox 4. Non-insulin dependent diabetes mellitus -Sliding scale insulin and carbohydrate consistent diet 5. Hypertension -Continue metoprolol tartrate 6. Hyperlipidemia -Continue atorvastatin 7. Bovine heart replacement -Continue aspirin and full dose Lovenox 8. Severe Aortic Stenosis -Seen on ADRIAN. Mean gradient >40 -Patient will need to be seen by his cardiac surgery, Dr. Kendall, for replacement -Anticipate transfer to [facility] tomorrow 9. DVT ppx -Lovenox Disposition: Anticipate transfer to [facility] tomorrow VS, I&O, 24H, Fishbone Vital Signs/I&O Vital Signs Date Time Temp Pulse Resp B/P (MAP) Pulse Ox O2 Delivery O2 Flow Rate FiO2 02/26/21 08:31 82 116/70 02/26/21 08:00 97.7 18 96 Room Air 02/23/21 17:35 2.0 I&O- Last 24 Hours up to 6 AM 02/26/21 06:00 Intake Total 1125 ml Output Total 600 ml Balance 525 ml Laboratory Data 24H LABS Laboratory Tests 2 02/25/21 13:59: Bedside Glucose (Misc Panel) 120H 02/25/21 17:17: Bedside Glucose (Misc Panel) 206H 02/25/21 20:09: Bedside Glucose (Misc Panel) 139H 02/26/21 05:03: Nucleated Red Blood Cells % (auto) 0.0, Erythrocyte Sedimentation Rate 34H, Prothrombin Time 13.3, Prothromb Time International Ratio 0.99, Activated Partial Thromboplast Time 45.9H, Anion Gap 4L, Glomerular Filtration Rate > 60.0, Calcium Level 8.8, C-Reactive Protein, Quantitative 1.25H CBC/BMP Laboratory Tests 02/26/21 05:03 Microbiology Microbiology 02/24/21 Blood Culture - Preliminary, Resulted No growth after 24 hours . All specim... 02/24/21 Blood Culture - Preliminary, Resulted No growth after 24 hours . All specim... LISS JOSEPH DO Feb 26, 2021 09:45
[2021-02-26 12:00] VITALS: BP 132/80
--- NOTE | 2021-02-26 13:24 | T-ECHO ---
TRANSESOPHAGEAL ECHOCARDIOGRAM DATE: 02/25/2021 REFERRING PHYSICIAN: Mandy Byers M.D. INDICATION: Aortic valve replacement, peripheral embolization, suspicion for endocarditis. PROCEDURE PERFORMED BY: Sotero Mitchell M.D. ANESTHESIOLOGIST: Shady Chappell C.R.N.A. BRIEF HISTORY: Mr. Garcia is a 60-year-old man who has a history of aortic valve replacement for bicuspid aortic valve that was followed by a redo aortic valve replacement by bioprosthetic valve last year. He presented with embolization to his left lower extremity and transthoracic echocardiogram revealed suspicion for aortic valve vegetation. Consequently, transesophageal echocardiogram was requested. I met with the patient prior to the procedure. I explained the rationale and potential findings. He signed appropriate consent. PROCEDURE NOTE: Procedure was performed in the operating room. Patient presented in fasting condition. His posterior pharynx was anesthetized using viscous lidocaine and Cetacaine spray. After appropriate time out was taken and all the appropriate monitors were applied, patient was positioned in left lateral decubitus position. Bite block was put in place. It was very difficult to perform esophageal intubation. I tried to pass the probe several times before being ultimately successful. After appropriate images were taken, the probe was withdrawn. Patient tolerated the procedure well and there were no immediate complications. FINDINGS: Normal left ventricular systolic function with estimated ejection fraction (EF) around 70%. Normal right ventricular (RV) systolic function. Left atrium is enlarged. Right atrium appears normal size. Mitral valve has normal mobility. I do not appreciate any vegetations or prolapse. Mild mitral insufficiency is noted. Left atrial appendage is small and free of thrombi. There is normal flow in both left-sided and right-sided pulmonary veins. Atrial septum is intact based on color Doppler and 2-dimensional imaging. Tricuspid valve appears normal. Mild tricuspid insufficiency is seen. Calculated pulmonary artery pressure is within normal limits. Pulmonic valve was poorly visualized. There is a bioprosthetic aortic valve. The visualization was somewhat limited, but it is well seated. There is approximately 0.8 cm mobile echodensity attached to the valve consistent with vegetation. The true anatomy of the valve, though, was poorly seen. Based on continuous wave Doppler, there is severe aortic stenosis with peak gradient 58 and mean gradient 41 mmHg. Trace insufficiency is noted. Limited views of thoracic aorta reveal no significant atherosclerosis. CONCLUSIONS: 1. Aortic bioprosthesis with severe stenosis (mean gradient 41 mmHg) and 0.8 cm mobile echodensity consistent with vegetation. Trace insufficiency. 2. No additional significant valvular disease. 3. Preserved left ventricular (LV) and right ventricular (RV) systolic function. 4. Intact atrial septum. 5. Left atrial appendage free of thrombus. Results of the study were discussed with the patient and Dr. Kendall. Tentative plan to transfer patient to [facility] for a third aortic valve replacement on Saturday. In the interim, will continue anticoagulation. DEBBI
--- NOTE | 2021-02-26 13:59 | IPN ---
CARDIOLOGY PROGRESS NOTE DATE: 02/26/2021 SUBJECTIVE: Mr. Garcia has had no problems overnight. He feels well. The leg does not hurt. Denies any chest pain. I did a transesophageal echocardiogram yesterday that revealed severe aortic stenosis and vegetation on the aortic valve. I subsequently had a communication with Dr. Kendall, who did his two prior open heart surgeries and there is a tentative plan to transfer patient to [place] tomorrow morning. He had numerous questions yesterday that I answered. Unfortunately, this is a very atypical situation. PHYSICAL EXAMINATION: VITAL SIGNS: This morning, blood pressure 116/70, heart rate 82, afebrile, oxygen saturation 96% on room air. Weight is 109 kg. GENERAL: Alert, oriented and appropriate. HEENT: Jugular venous pressure (JVP) is not high. LUNGS: Clear. HEART EXAM: Regular rhythm. Today I do appreciate a fairly unimpressive heart murmur, probably 1/6 intensity over the aortic valve. No diastolic component to it. ABDOMEN: Soft. EXTREMITIES: Free of edema. Peripheral pulses are fine. LABORATORY DATA: Basic metabolic panel is normal with the exception of glucose 140. C-reactive protein (CRP) was 1.25. CBC is essentially normal but for minimal anemia. Hemoglobin 12.2, hematocrit 37. Sedimentation rate is 34. Hypercoagulable panel is still pending. Blood cultures are negative after 24 hours. ASSESSMENT AND PLAN: Mr. Garcia is a 60-year-old man with history of bicuspid aortic valve that was replaced several years ago and then had a redo aortic valve replacement last year with bioprosthesis after he had prosthetic restenosis. It appears that the same thing happened again. He embolized to his left popliteal artery and has a still visible vegetation on the aortic valve prosthesis, together with very high gradient. This is a very unusual development to restenosis the valve within little more than one year on full anticoagulation with aspirin and Xarelto. I have to suspect that he has some form of hypercoagulable condition and the panel was sent and is pending. It is a difficult situation and I am not certain what is the most appropriate choice of a new prosthetic valve. Depending on the results of the hypercoagulable panel, he might actually benefit from anticoagulation with Coumadin rather than Xarelto. In the interim, we will continue the same medications today. DEBBI
[2021-02-26 16:00] VITALS: BP 127/71
[2021-02-26 20:00] VITALS: BP 122/70
[2021-02-26] MEDS: ATORVASTATIN 20 MG TAB PO SCH (20:14)
[2021-02-26] MEDS: AMITRIPTYLINE 25MG TABLET PO SCH (20:15)
[2021-02-27] VITALS: BP 121/65
[2021-02-27 04:00] VITALS: BP 120/74
[2021-02-27 05:07] LABS: HEMATOCRIT 36.1 % (42.0-52.0); HEMOGLOBIN 11.9 g/dl (13.5-17.5); MEAN CORPUSCULAR VOLUME 87.8 fl (80.0-96.0); PLATELET COUNT, AUTOMATED 285 10^3/uL (150-450); RED BLOOD COUNT 4.11 10^6/uL (4.30-6.10); WHITE BLOOD COUNT 7.3 10^3/uL (4.0-10.0)
[2021-02-27 05:32] LABS: ERYTHROCYTE SEDIMENTATION RATE 52 mm/hr (0-20)
[2021-02-27 05:37] LABS: BLOOD UREA NITROGEN 16 MG/DL (7-18); C REACTIVE PROTEIN QUANTITATIV 1.13 MG/DL (0.00-0.30); CALCIUM LEVEL 8.7 MG/DL (8.5-10.1); CARBON DIOXIDE LEVEL 28 MEQ/L (21-32); CHLORIDE LEVEL 108 MEQ/L (98-107); CREATININE FOR GFR 0.78 MG/DL (0.70-1.30); GLOMERULAR FILTRATION RATE > 60.0 (>56); GLUCOSE, FASTING 144 MG/DL (70-100); SODIUM LEVEL 143 MEQ/L (136-145)
[2021-02-27] MEDS: HumaLOG INSULIN (NovoLOG) PER UNIT SC SCH ×4 (07:30→21:00)
[2021-02-27 08:00] VITALS: BP 114/60
[2021-02-27] MEDS: ASPIRIN 81MG ENTERIC TABLET PO SCH (09:04)
[2021-02-27] MEDS: METOPROLOL TART 12.5 MG PER 1/2 TAB PO SCH ×2 (09:05→22:12)
[2021-02-27] MEDS: MULTIVITAMINS/MINERALS THERAP 1 TAB PO SCH (09:05)
[2021-02-27] MEDS: ENOXAPARIN 120MG/0.8ML SYRINGE (J1650 PER 10MG) SC SCH ×2 (09:21→22:13)
[2021-02-27 12:00] VITALS: BP 127/72
[2021-02-27 16:00] VITALS: BP 125/78
--- NOTE | 2021-02-27 19:24 | IPNPDOC ---
Subjective Date Seen The patient was seen on 02/27/21. Subjective Chief Complaint/HPI Mr. Garcia is a 60 year old male with bovine aortic valve who presents with acute arterial occlusion of left leg. This morning patient denies any chest pain or dyspnea. His leg feels well. I contacted [facility] transfer line. Dr. Kendall, cardiac surgery, will be transferring and accepting patient tomorrow morning. Objective Physical Examination General Exam: Positive: Alert, Cooperative Eye Exam: Positive: EOMI; Negative: Sclera icteric ENT Exam: Positive: Atraumatic Neck Exam: Positive: Supple Chest Exam: Positive: Clear to auscultation; Negative: Rales, Rhonchi, Wheezing Heart Exam: Positive: Rate Normal, Regular Rhythm Abdomen Exam: Positive: Normal bowel sounds, Soft; Negative: Tenderness Neuro Exam: Positive: Normal Speech, Cranial Nerves 3-12 NL Psych Exam: Positive: Mental status NL, Mood NL Assessment /Plan Assessment Mr. Garcia is a 60 year old male with bovine aortic valve who presents with acute arterial occlusion of left leg. Patient was previously on Xarelto and aspirin and still developed a vegetation and severe aortic stenosis. Patient had a similar event with his previous aortic valve. Patient may have a hypercoagulable state in which he would need to be on either Lovenox or Warfarin. Otherwise, pending hypercoaguable work up from 02/23/21. Pending transfer to [facility] by Dr. Kendall, patient's cardiac surgeon. Plan/VTE VTE Prophylaxis Ordered?: Yes Plan 1. Left popliteal artery occlusion -IR following, recommendations appreciated -Left popliteal artery, posterior tibial, and peroneal artery thrombectomy and tPa administration by Dr. Manning on 02/23/21 -Started hypercoagulable work up on 02/23 -Oncology/Hematology, Dr. Elise consulted, recommendations appreciated -Continue aspirin and Lovenox 2. Aortic valve vegetation -1cm by 0.5cm vegetation on aortic valve -Cardiology, Dr. Mitchell consulted, recommendations appreciated -ADRIAN 02/25/21 -ID, Dr. Yousif, consulted, recommendations appreciated -No signs of infection. Repeat blood cultures on Saturday 3. History of portal vein thrombosis -On Xarelto outpatient -On full dose Lovenox 4. Non-insulin dependent diabetes mellitus -Sliding scale insulin and carbohydrate consistent diet 5. Hypertension -Continue metoprolol tartrate 6. Hyperlipidemia -Continue atorvastatin 7. Bovine heart replacement -Continue aspirin and full dose Lovenox 8. Severe Aortic Stenosis -Seen on ADRIAN. Mean gradient >40 -Patient will need to be seen by his cardiac surgery, Dr. Kendall, for replacement -Anticipate transfer to [facility] tomorrow 9. DVT ppx -Lovenox Disposition: Anticipate transfer to [facility] tomorrow VS, I&O, 24H, Fishbone Vital Signs/I&O Vital Signs Date Time Temp Pulse Resp B/P (MAP) Pulse Ox O2 Delivery O2 Flow Rate FiO2 02/27/21 16:00 97.5 91 15 125/78 (94) 97 Room Air 02/23/21 17:35 2.0 I&O- Last 24 Hours up to 6 AM 02/27/21 06:00 Intake Total 0 ml Output Total 175 ml Balance -175 ml Laboratory Data 24H LABS Laboratory Tests 2 02/26/21 20:18: Bedside Glucose (Misc Panel) 151H 02/27/21 04:31: Nucleated Red Blood Cells % (auto) 0.0, Erythrocyte Sedimentation Rate 52H, Anion Gap 7L, Glomerular Filtration Rate > 60.0, Calcium Level 8.7, C-Reactive Protein, Quantitative 1.13H 02/27/21 12:01: Bedside Glucose (Misc Panel) 216H 02/27/21 17:25: Bedside Glucose (Misc Panel) 129H CBC/BMP Laboratory Tests 02/27/21 04:31 Microbiology Microbiology 02/27/21 Respiratory Virus Panel (PCR) (SHEILA), Received Pending 02/27/21 Blood Culture, Received Pending 02/27/21 Blood Culture, Received Pending 02/24/21 Blood Culture - Preliminary, Resulted No Growth after 48 hours. All Specime... 02/24/21 Blood Culture - Preliminary, Resulted No Growth after 48 hours. All Specime... LISS JOSEPH DO Feb 27, 2021 19:24
[2021-02-27 20:00] VITALS: BP 123/68
[2021-02-27] MEDS: ATORVASTATIN 20 MG TAB PO SCH (22:12)
[2021-02-27] MEDS: AMITRIPTYLINE 25MG TABLET PO SCH (22:12)
[2021-02-28] VITALS: BP 130/68
[2021-02-28 04:00] VITALS: BP 116/64
[2021-02-28 05:33] LABS: HEMATOCRIT 35.3 % (42.0-52.0); HEMOGLOBIN 11.8 g/dl (13.5-17.5); MEAN CORPUSCULAR HEMOGLOBIN 29.4 pg (27.0-33.0); MEAN CORPUSCULAR HGB CONC 33.4 g/dl (32.0-36.5); MEAN CORPUSCULAR VOLUME 87.8 fl (80.0-96.0); PLATELET COUNT, AUTOMATED 295 10^3/uL (150-450); RED BLOOD COUNT 4.02 10^6/uL (4.30-6.10); WHITE BLOOD COUNT 7.8 10^3/uL (4.0-10.0)
[2021-02-28 06:02] LABS: BLOOD UREA NITROGEN 11 MG/DL (7-18); CALCIUM LEVEL 8.9 MG/DL (8.5-10.1); CARBON DIOXIDE LEVEL 28 MEQ/L (21-32); CHLORIDE LEVEL 107 MEQ/L (98-107); CREATININE FOR GFR 0.69 MG/DL (0.70-1.30); GLOMERULAR FILTRATION RATE > 60.0 (>56); GLUCOSE, FASTING 150 MG/DL (70-100); POTASSIUM SERUM 3.9 MEQ/L (3.5-5.1); SODIUM LEVEL 142 MEQ/L (136-145)
[2021-02-28 08:00] VITALS: BP 138/69
[2021-02-28 08:36] VITALS: BP 138/69
[2021-02-28] MEDS: METOPROLOL TART 12.5 MG PER 1/2 TAB PO SCH (08:36)
[2021-02-28] MEDS: ENOXAPARIN 120MG/0.8ML SYRINGE (J1650 PER 10MG) SC SCH (08:36)
[2021-02-28] MEDS: HumaLOG INSULIN (NovoLOG) PER UNIT SC SCH (08:36)
[2021-02-28] MEDS: MULTIVITAMINS/MINERALS THERAP 1 TAB PO SCH (08:37)
[2021-02-28] MEDS: ASPIRIN 81MG ENTERIC TABLET PO SCH (08:37)
--- NOTE | 2021-02-28 08:57 | CR ---
CONSULTATION DATE: 02/27/2021 REASON FOR CONSULTATION: I was asked to consult by Naveed Rodriguez DO for evaluation of vegetation of the aortic prosthetic valve. HISTORY OF PRESENT ILLNESS: Mr. Garcia is a pleasant, 60-year-old gentleman with a history of portal vein thrombosis diagnosed in 2004, treated with coumadin for six months, history of superior mesenteric vein occlusion in 2010 treated again with Coumadin and eventually switched to Xarelto. The patient underwent aortic valve replacement in January of [address] Kendall and in the summer, he had a cough that was treated with prednisone, hyperglycemia and in September of 2019, he had syncopal episode, was noted to have a vegetation and was transferred to the care of [facility] where he had to undergo another valve replacement due to stenosis. The patient did not receive any IV antibiotics. After surgery, he was not found to have an endocarditis but a thrombus on the clot. He was seen by Dr. Twyla Lafleur. His stitching department supervisor is Dr. Gross. He had been on Xarelto and aspirin when he developed severe acute onset of left calf pain and leg pain that lasted about 12 hours. Then he developed a cold foot on the morning of admission and he was admitted with an ischemic foot. He had been diagnosed with a popliteal artery stenosis by CT. There was a short segment occlusion of the left popliteal artery without involving the left collaterals, questionable embolic occlusion. The patient underwent thrombectomy with marked improvement of his symptoms. He had a followup echocardiogram done by Dr. Mitchell and was consistent with a vegetation of the bioprosthetic aortic valve which showed severe stenosis and a 0.8 cm mobile echodensity consistent with a vegetation. He has preserved left ventricular and right ventricular function. The patient denied having any fever or chills or night sweats prior to this acute ischemic leg. He had no nausea or vomiting or diarrhea. He had no symptoms to suggest an infectious etiology. His sed rate was slightly elevated on admission at 23 and went up to 52 on day four and after thrombectomy and his CRP around 1.2. Blood cultures were drawn on admission, two sets on 02/24 with no growth after 72 hours. Repeat blood cultures were done on 02/27. Of note, the patient had received antibiotics after the admission blood cultures done. He received two doses of IV vancomycin. PAST MEDICAL HISTORY: 1. Portal vein thrombosis treated by Dr. Lee on coumadin for six months. 2. Laparoscopic cholecystectomy in 2004. 3. In 2010, he had superior mesenteric vein occlusion with severe right upper quadrant pain treated with coumadin and IV heparin. 4. He had a complete workup of hypercoagulability including protein C, protein S, lupus anticoagulant. His LA-PTT was slightly elevated but confirmatory tests were negative. Factor V Leiden was normal. He was also found to have aortic stenosis and underwent aortic valve replacement in January of 2018 felt to be a bicuspid aortic valve. 5. Type 2 diabetes. 6. Seizure disorder. PAST SURGICAL HISTORY: 1. 01/2018, first aortic valve replacement. 2. September of 2019, second aortic valve replacement with a bioprosthetic valve. 3. Thrombectomy in popliteal artery this admission. 4. Laparoscopic cholecystectomy in 2004. 5. Colonoscopy, 2006. ALLERGIES: TYLENOL, HYDROCODONE, HYDROMORPHONE. 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 He does not smoke or drink. He is . He lives with his . He has a daughter. PHYSICAL EXAMINATION: General: He is a pleasant gentleman in no acute distress. Heart: Normal S1, S2 with a soft ejection murmur, 2/6, left upper sternal border. Healed scar of right valve replacement. Lungs: Clear. No wheezes, rales or rhonchi. Abdomen: Soft, nontender, no hepatosplenomegaly. Back: No CVA tenderness. Extremities: No clubbing, cyanosis or edema, +2 dorsalis pedis pulses. Neurologic: Normal. LABORATORY DATA: Sodium 143, potassium 4, chloride 108, bicarb 28, BUN 16, creatinine 0.78, glucose 144, calcium 8.7, CRP 1.13. White count 7.3, hemoglobin 11.9, hematocrit 36.1, platelets 285. ESR 52. DARIN and anticardiolipin antibodies, SSA, SSB were all pending. SARS-CoV-2 negative. MRSA not detected. Blood cultures from 02/24 negative and two sets done on 02/27 are pending. Respiratory panel was negative. Last does of vancomycin IV was 02/25 at 8:50. IMAGING: Vascular ultrasound on 02/23 showed no evidence of DVT of left lower extremity. CT angiogram showed a popliteal artery thrombus on the left side. IMPRESSION: This is a 60-year-old gentleman who was admitted with aortic valve thrombus with secondary embolism to the left popliteal artery, underwent thrombectomy with marked improvement of his symptoms. He currently has no calf pain but unfortunately has another vegetation on his aortic valve and aortic stenosis. This has been discussed at length with Dr. Mitchell, cardiology who also discussed the case with his cardiothoracic surgeon, Dr. Kendall who did his valve replacement. He had a workup in 2010 of hypercoagulability with result negative and he has been seen by hematology this admission as well and his workup has been repeated. The patient seems to have failed Xarelto and aspirin and is currently being treated with Lovenox 110 mg subcu q.12 hours. PLAN: I do not see any evidence of endocarditis. The patient has had multiple arterial and venous thrombotic events including portal vein thrombosis in 2004, superior mesenteric vein occlusion in 2010, malfunction of his aortic valve in 2019 from severe stenosis and currently a popliteal artery embolism from an aortic valve thrombus. This is most likely undiagnosed hypercoagulable state and I agree with Dr. Mitchell and Dr. Pickens currently treating with Lovenox. I would obtain a couple more blood cultures in a couple days since the patient has received vancomycin just to be complete but if he undergoes another valve replacement thrombus, the vegetation needs to be sent for culture and PCR testing. I would not recommend antibiotics at this time unless there is evidence of bacteremia or infectious etiology. The patient has no risks factors for infectious etiology such as Q fever or legionnaire causing culture negative endocarditis and therefore further workup from the infectious standpoint will not be done. DEBBI
--- NOTE | 2021-02-28 12:57 | DS.PDOC ---
Discharge Summary General Date of Admission Feb 23, 2021 at 14:22 Date of Discharge 02/28/2021 Primary Care Physician: Jr Mata Collins Attending Physician: TORI HAIDER DO Specialist/Consultants Involve: Sotero Mitchell MD Specialist/Consultants Involve Nelia Elise MD, hematology, oncology; Smith Yousif MD, infectious disease, Lucas Manning MD, vascular surgery Discharge Summary PROCEDURES PERFORMED DURING STAY: Transesophageal echocardiogram, left popliteal artery, posterior tibial and peroneal artery thrombectomy and TPA administration ADMITTING DIAGNOSES: 1. Left popliteal artery occlusion. 2. History of portal vein thrombosis 3. Myc-wpmgfny-ybmsywkds diabetes mellitus 4. Hypertension 5. Hyperlipidemia DISCHARGE DIAGNOSES: 1. Left popliteal artery occlusion. 2. Aortic valve vegetation 3. History of portal vein thrombosis 4. Zek-xlppnox-zumkyivfd diabetes mellitus 5. Hypertension 6. Hyperlipidemia 7. History of bovine aortic valve replacement 8. Severe aortic stenosis COMPLICATIONS/CHIEF COMPLAINT: Occlusion Of Left Popliteal Artery. HISTORY OF PRESENT ILLNESS: Patient is a 60-year-old male who presented due to left foot pain, paresthesia, and coldness was found to have a left popliteal artery occlusion. Patient stated he was out golfing the day prior to coming into the hospital and started having left leg pain. He thought it was from a muscle strain and continued golfing. As the day progressed, the pain did not improve and he started having paresthesias. This morning, his symptoms persisted and his foot felt cold. He came to the emergency department for eval uation. Venous ultrasound was negative but CT angio of his left leg was positive for occlusion of the left popliteal artery. Patient was evaluated by interventional radiology and taken to the IR suite for surgery. Patient was in good spirits. HOSPITAL COURSE: Patient was doing well after the thrombectomy and TPA administration. Patient was seen by hematology/oncology for hypercoagulability work-up. They recommended switching to Lovenox and possibly warfarin depending on the hypercoagulable work-up. Patient had a transthoracic echocardiogram which showed possible vegetation on the aortic valve. The septic tank servicer who read the echocardiogram spoke with the covering hospitalist overnight who ordered laboratory studies in order to rule out infective endocarditis. ADRIAN was also ordered and performed on 02/25/2021 which showed aortic bioprosthesis with severe stenosis and a 0.8 cm mobile echodensity consistent with vegetation with trace insufficiency. The results were discussed with the patient's cardiothoracic surgeon Dr. Kendall by Dr. Mitchell who performed the transesophageal echocardiogram. The plan was to transfer the patient to [facility] for a third aortic valve replacement on 02/27/2021 however, there was no bed availability. Infectious disease was consulted but did not recommend antibiotics as the patient had negative blood cultures and no fevers and no other symptoms consistent with infective endocarditis. A bed became available on 02/28/2021 and the patient was transferred to [facility] in [place], [place] DISCHARGE MEDICATIONS: Please see below. ALLERGIES: Please see below. PHYSICAL EXAMINATION ON DISCHARGE: VITAL SIGNS: Please see below. General: Alert and oriented male patient who was sitting in the chair when I wa lked into the room. Patient did not appear to be in any acute distress. HEENT: Normocephalic, atraumatic, moist mucous membranes. Neck: No lymphadenopathy or thyromegaly Cardiac: Regular rate and rhythm, no murmurs, normal S1, normal S2 Pulm: Clear to auscultation bilaterally. No wheezes, rhonchi, rales Abd: Nondistended, nontender to palpation, normal bowel sounds Ext: No edema bilateral lower extremities LABORATORY DATA: Please see below. IMAGING: CT angiogram of the abdominal arteries with runoff through the bilateral lower extremities performed on 02/23/2021 is reported to show abrupt short segment occlusion of the left popliteal artery without well-developed collaterals, question embolic occlusion. There are some mild calcific plaquing distal to the occlusion. Only minimal arthrosclerotic plaquing is seen elsewhere. Duplication of the renal arteries. Small right pleural effusion. Intrarenal nephrolithiasis right kidney. Fatty infiltration of the liver. Duplex venous ultrasound of the left lower extremities performed on was reported to show no evidence of DVT in the left lower extremity femoral- popliteal veins. No DVT in the visible portion of the calf veins. Transthoracic echocardiogram performed on 02/24/2021 was reported to show normal sinus rhythm with right bundle branch block, technically difficult study in the light of the patient's body habitus, but useful diagnostic information was obtained. M-mode and two-dimensional echocardiography was performed with pulse, continuous wave, color flow, and tissue Doppler studies. Moderate left ventricular hypertrophy with hypokinetic wall motion. LA is moderately dilated left atrium with grade 1 left ventricular diastolic dysfunction and current estimated mean left atrial pressure upper limits of normal. Normal right heart chamber sizes motion with Doppler evidence of mild pulmonary hypertension. Normal IVC size and collapse against an elevated central venous pressure at this time. Normal aortic dimensions. 3 equal size aortic cusp with asymmetrical thickening and some reduced separation of the cusp with Doppler evidence for these mild aortic stenosis. A separate 1 cm x 0.5 cm vegetation appeared to be connected to the noncoronary cusp of the aortic valve and laying in the left ventricular outflow tract. There is only mild associated aortic insufficiency. There were mild degenerative changes of the mitral valvular apparatus with adequate leaflet excursion and no posterior systolic buckling. Only very mild insufficiency could be visualized. Normal-appearing tricuspid valve with mild insufficiency. No pericardial effusion. Transesophageal echocardiogram performed on 02/25/2021 was reported to show aortic bioprosthesis with severe stenosis (mean gradient 41 mmHg) and 0.8 cm mobile echodensity consistent with vegetation. Trace insufficiency. No additional significant valvular disease. Preserved left ventricular and right ventricular systolic function. Intact atrial septum. Left atrial appendage free of thrombus PROGNOSIS: Good ACTIVITY: As tolerated. DIET: Consistent carbohydrate DISCHARGE PLAN: Transfer to [facility] in [place], [place] DISPOSITION: Transfer to [facility] in [place], [place] DISCHARGE INSTRUCTIONS: 1. Follow-up with the providers at [facility]. ITEMS TO FOLLOWUP ON ON OUTPATIENT: 1. None. DISCHARGE CONDITION: Stable. TIME SPENT ON DISCHARGE: 35 minutes Vital Signs/I&Os Vital Signs Date Time Temp Pulse Resp B/P (MAP) Pulse Ox O2 Delivery O2 Flow Rate FiO2 02/28/21 08:36 89 138/69 02/28/21 08:00 97.8 16 97 Room Air 02/23/21 17:35 2.0 I&O- Last 24 Hours up to 6 AM 02/28/21 05:59 Intake Total 850 ml Balance 850 ml Laboratory Data Labs 24H Laboratory Tests 2 02/27/21 12:01: Bedside Glucose (Misc Panel) 216H 02/27/21 17:25: Bedside Glucose (Misc Panel) 129H 02/27/21 22:06: Bedside Glucose (Misc Panel) 183H 02/28/21 05:13: Nucleated Red Blood Cells % (auto) 0.0, Anion Gap 7L, Glomerular Filtration Rate > 60.0, Calcium Level 8.9 CBC/BMP Laboratory Tests 02/28/21 05:13 FSBS Laboratory Tests Test 02/27/21 12:01 02/27/21 17:25 02/27/21 22:06 Range/Units Bedside Glucose (Misc Panel) 216 129 183 70-105 MG/DL Microbiology Microbiology 02/28/21 Blood Culture, Received Pending 02/27/21 Respiratory Virus Panel (PCR) (SHEILA) - Final, Complete 02/27/21 Blood Culture - Preliminary, Resulted No growth after 24 hours . All specim... 02/27/21 Blood Culture - Preliminary, Resulted No growth after 24 hours . All specim... 02/24/21 Blood Culture - Preliminary, Resulted No Growth after 72 hours. All specime... 02/24/21 Blood Culture - Preliminary, Resulted No Growth after 72 hours. All specime... Discharge Medications Scheduled Amitriptyline HCl (Amitriptyline HCl) 25 Mg Tablet, 25 MG PO QHS, (Reported) Aspirin (Aspirin) 81 Mg Tab.chew, 81 MG PO DAILY, (Reported) Atorvastatin Calcium (Atorvastatin Calcium) 40 Mg Tablet, 40 MG PO QHS, (Reported) Enoxaparin Sodium (Lovenox) 120 Mg/0.8 Ml Syringe, 110 MG SC Q12H Metformin HCl (Metformin HCl ER) 750 Mg Tab.er.24h, 750 MG PO DAILY, (Reported) Metoprolol Tartrate (Metoprolol Tartrate) 25 Mg Tablet, 12.5 MG PO BID, (Reported) Multivitamins (Thera M Plus Tablet) 1 Each Tablet, 1 TAB PO DAILY, (Reported) Scheduled PRN Acetaminophen (Acetaminophen) 325 Mg Tablet, 650 MG PO Q4-6HP PRN for PAIN LEVEL 1-5, (Reported) Menthol (Biofreeze) 118 Ml Gel..ml., 1 APLCT TOP QID PRN for PAIN, (Reported) APPLIES TO BACK [Theraworx Relief] , 1 APLCT TOP DAILY PRN for CRAMPS, (Reported) Allergies Coded Allergies: hydrocodone (Verified Allergy, Unknown, 09/26/19) oxycodone (Verified Adverse Reaction, Intermediate, HALLUCINATIONS, 02/23/21) hydromorphone (Verified Adverse Reaction, Mild, HALLUCINATIONS, 09/26/19) TORI HAIDER DO Feb 28, 2021 12:57
[2021-03-01 11:51] LABS: DRVV SCREEN 58.1 SEC
[2021-03-01 12:07] LABS: PTT LUPUS TYPE ANTICOAG SCREEN 1.5 (0-1.2)
[2021-03-01 12:08] LABS: ANCA-ATYPICAL <1:20 titer (Neg:<1:20); ANTI THROMBIN 3 ANTIGEN IMMUNO 74 % (72-124); ANTI THROMBIN 3 FUNCT ACTIVITY 91 % (75-135); ANTINUCLEAR ANTIBODIES DIRECT Negative (Negative); CARDIOLIPIN IGA ANTIBODY <9 APL U/mL (0-11); CARDIOLIPIN IGG ANTIBODY <9 GPL U/mL (0-14); CARDIOLIPIN IGM ANTIBODY <9 MPL U/mL (0-12); CYTOPLASMIC NEUTROP AB ANCA-C <1:20 titer (Neg:<1:20); HOMOCYST(E)INE SERUM 7.1 umol/L (0.0-14.5); PERINUCLEAR AB ANCA-P <1:20 titer (Neg:<1:20); PROTEIN C ANTIGEN 112 % (60-150); PROTEIN S ANTIGEN FREE 67 % (57-157); PROTEIN S ANTIGEN TOTAL 87 % (60-150); SJOGREN'S ANTI SS-A <0.2 AI (0.0-0.9); SJOGREN'S ANTI SS-B 0.6 AI (0.0-0.9)
[2021-03-01 12:16] LABS: DRVV CONFIRM 44.7 SEC; LUPUS CONFIRM RATIO 1.2
[2021-03-01 12:18] LABS: NORMALIZED RATIO 1.25 (0.00-1.20)
[2021-03-03 03:07] LABS: HEXAGONAL PHASE PHOSPHOLIPID 2 sec (0-11)
== END 2021-02-28 12:35 | disposition short-term general hospital (02) | DRG 254 ==
LOC: M ED 09:35 → M ED INP 14:22 → M PCU 16:45
PROVIDERS: ADMIT Internal Medicine; ATTEND Internal Medicine
PROC: 047N3ZZ Dilation of Left Popliteal Artery, Percutaneous Approach (ICD-10-PCS; principal; 2021-02-24)
PROC: 047U3ZZ Dilation of Left Peroneal Artery, Percutaneous Approach (ICD-10-PCS; 2021-02-25)
PROC: B246ZZ4 Ultrasonography of Right and Left Heart, Transesophageal (ICD-10-PCS; 2021-02-25)
DX: I77.1 Stricture of artery (principal); E78.5 Hyperlipidemia, unspecified; I10 Essential (primary) hypertension; E11.9 Type 2 diabetes mellitus without complications; I35.0 Nonrheumatic aortic (valve) stenosis; Z79.899 Other long term (current) drug therapy; Z79.82 Long term (current) use of aspirin; Z88.5 Allergy status to narcotic agent; E66.9 Obesity, unspecified; Z79.01 Long term (current) use of anticoagulants

== ENCOUNTER 2021-04-10 14:33 | Emergency (ER) | payer OTHER ==
[~2021-04-10] VITALS: Ht 165.1 cm; Wt 108.8 kg
[~2021-04-10 14:33] MED LIST changes: -LISI2.5T2 PO; +LISI2.5T9 PO; +LOVE0.01 SC; +[UNRECOGNIZED DRUG - OTHER] TOP
[2021-04-10 14:34] VITALS: BP 195/93
[2021-04-10] MEDS ORDERED: NS 1,000 ML IV ONE (17:45)
[2021-04-10] MEDS ORDERED: ENOXAPARIN 120MG/0.8ML SYRINGE (J1650 PER 10MG) SC ONE (17:45)
[2021-04-10] MEDS ORDERED: MORPHINE 4 MG/ML 1ML VIAL/SYRINGE (J2270) IV ONE (17:45)
== END 2021-04-10 19:47 | disposition left against medical advice (07) ==
LOC: M ED 14:33
DX: N20.1 Calculus of ureter (principal); E11.9 Type 2 diabetes mellitus without complications; I10 Essential (primary) hypertension; E78.5 Hyperlipidemia, unspecified; Z88.5 Allergy status to narcotic agent; Z79.899 Other long term (current) drug therapy; Z79.82 Long term (current) use of aspirin

== ENCOUNTER 2021-05-12 19:38 | Inpatient (IN) | payer OTHER ==
[~2021-05-12] VITALS: Ht 165.1 cm; Wt 109.1 kg
--- NOTE | 2021-05-12 19:51 | REPVR ---
PROCEDURE INFORMATION: Exam: CT Head Without Contrast Exam date and time: 05/12/2021 7:46 PM Age: 61 years old Clinical indication: Weakness, facial; Additional info: Facial droop TECHNIQUE: Imaging protocol: Computed tomography of the head without contrast. Radiation optimization: All CT scans at this facility use at least one of these dose optimization techniques: automated exposure control; mA and/or kV adjustment per patient size (includes targeted exams where dose is matched to clinical indication); or iterative reconstruction. Other technique: STROKE PROTOCOL was implemented. COMPARISON: CT Head without contrast 10/07/2019 11:59 PM FINDINGS: Brain: No intracranial hemorrhage or extra-axial fluid collection. No evidence of mass effect or midline shift. Colon-white matter differentiation is intact. Cerebral ventricles: No ventriculomegaly. Paranasal sinuses: Visualized sinuses are unremarkable. No fluid levels. Mastoid air cells: Unremarkable. Bones/joints: No acute osseus lesion or fracture. Soft tissues: Unremarkable. IMPRESSION: No acute intracranial pathology. ASPECTS score 10. Electronically signed by: Aman Sarkar On 05/12/2021 19:50:20 PM
[2021-05-12 20:25] LABS: BASO # 0.1 10^3/uL (0.0-0.2); BASO % 0.7 % (0.0-1.0); EOS # 0.2 10^3/uL (0.0-0.5); EOS % 1.7 % (0.0-3.0); HEMOGLOBIN 13.2 g/dl (13.5-17.5); LYMPH # 2.8 10^3/uL (1.5-5.0); LYMPH % 31.2 % (24.0-44.0); MEAN CORPUSCULAR HEMOGLOBIN 28.7 pg (27.0-33.0); MONO # 0.9 10^3/uL (0.0-0.8); MONO % 9.6 % (2.0-8.0); NEUTROPHILS # 5.1 10^3/uL (1.5-8.5); NEUTROPHILS % 56.5 % (36.0-66.0); PLATELET COUNT, AUTOMATED 389 10^3/uL (150-450); WHITE BLOOD COUNT 9.1 10^3/uL (4.0-10.0)
--- NOTE | 2021-05-12 20:28 | REPVR ---
PROCEDURE INFORMATION: Exam: XR Chest Exam date and time: 05/12/2021 8:19 PM Age: 61 years old Clinical indication: TIA TECHNIQUE: Imaging protocol: XR of the chest. Views: 1 view. COMPARISON: [place] Chest, 1 view 10/07/2019 11:57 PM FINDINGS: Lungs: No focal areas of consolidation. Pleural spaces: Unremarkable. No pleural effusion. No pneumothorax. Heart/Mediastinum: Cardiac and mediastinal silhouettes are unremarkable. Bones/joints: Median sternotomy wires in place. No acute fracture. IMPRESSION: No acute cardiopulmonary findings. Electronically signed by: Aman Sarkar On 05/12/2021 20:27:59 PM
[2021-05-12] MEDS ORDERED: ENOX100I3 INJ (20:46)
[2021-05-12 20:49] LABS: BLOOD UREA NITROGEN 15 MG/DL (7-18); CARBON DIOXIDE LEVEL 29 MEQ/L (21-32); CHLORIDE LEVEL 105 MEQ/L (98-107); CREATININE FOR GFR 0.94 MG/DL (0.70-1.30); GLOMERULAR FILTRATION RATE > 60.0 (>56); GLUCOSE, FASTING 155 MG/DL (70-100); MAGNESIUM LEVEL 1.6 MG/DL (1.8-2.4); POTASSIUM SERUM 4.1 MEQ/L (3.5-5.1); SODIUM LEVEL 139 MEQ/L (136-145)
[2021-05-12] MEDS ORDERED: HOME MED LIST COMPLETE! XX SCH (20:50)
[2021-05-12] MEDS ORDERED: METOPROLOL TART 12.5 MG PER 1/2 TAB PO SCH (21:00)
[2021-05-12] MEDS ORDERED: ATORVASTATIN 20 MG TAB PO SCH (21:00)
[2021-05-12] MEDS ORDERED: AMITRIPTYLINE 25MG TABLET PO SCH (21:00)
[2021-05-12] MEDS ORDERED: ALPRAZolam 0.5 MG TAB PO ONE (21:30)
[2021-05-12] MEDS ORDERED: ASPIRIN 81 MG CHEW TABLET PO SCH (21:30)
[2021-05-12] MEDS ORDERED: ACETAMINOPHEN TAB 650MG DOSE (2X325MG) PO PRN (21:30)
[2021-05-12] MEDS ORDERED: MOM 30ML SUSPENSION UDC PO PRN (21:30)
[2021-05-12] MEDS ORDERED: MAALOX 30 ML SUSP *UDC PO PRN (21:30)
[2021-05-12 21:41] LABS: RSV AMPLIFICATION NEGATIVE (NEGATIVE)
[2021-05-12] MEDS ORDERED: MAG SULF 1GM/100ML (MAG RUN) 1 GM in IV 1 EA IV SCH (22:00)
[2021-05-12] MEDS ORDERED: LORazepam 2 MG/ML VIAL IV STA ×2 (22:12→22:57)
[2021-05-12] MEDS ORDERED: LORazepam 2 MG/ML VIAL As Ordered ONE ×3 (22:24→23:13)
--- NOTE | 2021-05-12 22:27 | HPEPDOC ---
[facility] Medical History & Physical Date of Admission May 12, 2021 Date of Service: May 12, 2021 Vital Signs Vital Signs Date Time Temp Pulse Resp B/P (MAP) Pulse Ox O2 Delivery O2 Flow Rate FiO2 05/12/21 20:30 18 148/81 (103) 05/12/21 20:23 96 95 Laboratory Data Labs 24H Laboratory Tests 2 05/12/21 19:52: Bedside Glucose (Misc Panel) 178H 05/12/21 20:00: Immature Granulocyte % (Auto) 0.3, Neutrophils (%) (Auto) 56.5, Lymphocytes (%) (Auto) 31.2, Monocytes (%) (Auto) 9.6H, Eosinophils (%) (Auto) 1.7, Basophils (%) (Auto) 0.7, Neutrophils # (Auto) 5.1, Lymphocytes # (Auto) 2.8, Monocytes # (Auto) 0.9H, Eosinophils # (Auto) 0.2, Basophils # (Auto) 0.1, Nucleated Red Blood Cells % (auto) 0.0, Anion Gap 5L, Glomerular Filtration Rate > 60.0, Calcium Level 9.0, Magnesium Level 1.6L 05/12/21 20:54: Coronavirus (COVID-19)(PCR) NEGATIVE, Influenza Type A (RT-PCR) NEGATIVE, Influenza Type B (RT-PCR) NEGATIVE, Respiratory Syncytial Virus (PCR) NEGATIVE 05/12/21 20:56: POC Troponin I (Misc) 0.00 CBC/BMP Laboratory Tests 05/12/21 20:00 Home Medications Scheduled Amitriptyline HCl (Amitriptyline HCl) 25 Mg Tablet, 25 MG PO QHS Aspirin (Aspirin) 81 Mg Tab.chew, 81 MG PO DAILY Atorvastatin Calcium (Atorvastatin Calcium) 40 Mg Tablet, 40 MG PO QHS Enoxaparin Sodium (Enoxaparin Sodium) 100 Mg/1 Ml Syringe, 100 MG INJ BID Metformin HCl (Metformin HCl ER) 750 Mg Tab.er.24h, 750 MG PO BID Metoprolol Tartrate (Metoprolol Tartrate) 25 Mg Tablet, 12.5 MG PO BID Multivitamins (Thera M Plus Tablet) 1 Each Tablet, 1 TAB PO DAILY Allergies Coded Allergies: hydrocodone (Verified Allergy, Unknown, 09/26/19) oxycodone (Verified Adverse Reaction, Intermediate, HALLUCINATIONS, 02/23/21) hydromorphone (Verified Adverse Reaction, Mild, HALLUCINATIONS, 09/26/19) LUIZ BUENO MD May 12, 2021 22:27
--- NOTE | 2021-05-13 00:28 | CR.PDOC ---
General Date of Consultation: May 12, 2021 Consultation REASON FOR CONSULTATION/CHIEF COMPLAINT: L sided hemiplegia HISTORY OF PRESENT ILLNESS: 61-year-old male with a past medical history of portal vein thrombosis previously on Xarelto now on therapeutic Lovenox, bioprosthetic aortic valve replacement x2, left popliteal artery thrombosis, a cute limb ischemia, type 2 diabetes, hypertension, obesity, presented to the ER after he developed a left-sided numbness and weakness involving the face left upper and left lower extremities accompanied by slurred speech and facial droop. Symptoms onset was at approximately 1800, and had resolved upon arrival to the ER at approximately 1900. Initial CT head without contrast showed no acute intracranial normality i.e. intracranial hemorrhage or acute ischemia. Patient vital signs were within normal limits included pulse 96 blood pressure 136/72, pulse oximetry 95% on room air and patient was afebrile. Consultation from neurologist Dr. Parker was obtained from the ER, recommended admission for work-up of TIA and to obtain MRI and MRA of the brain including carotid arteries. Prior to MR imaging, patient developed left-sided facial droop numbness and slurred speech with tongue deviation. NIH stroke scale 2. Patient takes low therapeutic Lovenox at home and her last taken 100 mg of subcu Lovenox at approximately 1700. This precludes him from administration of TPA. Pertinent cardiac history: In February 2021 patient presented to the ER with an ischemic foot found to be secondary to popliteal artery stenosis. At the time patient was taking Xarelto due to portal vein thrombosis. He underwent a thrombectomy with marked improvement of his symptoms. He was later referred to hematology for hypercoagulable work-up (negative findings) and he was switched to therapeutic Lovenox upon discharge. Patient had an echocardiogram which showed vegetation of the bioprosthetic valve and severe stenosis. Patient had preserved LVEF. ADRIAN was also ordered and performed on 02/25/2021 which showed aortic bioprosthesis with severe stenosis and a 0.8 cm mobile echodensity consistent with vegetation with trace insufficiency. This was discussed with cardiac surgery at [facility] at the time and was patient was considered for 3rd AVR. Patient denied subjective fevers chills or night sweats. Patient was evaluated by infectious disease attending Dr. Yousif and found no symptoms to suggest infectious process. Blood cultures were drawn repeatedly which showed no growth. Patient was transferred to [facility] for cardiothoracic surgery eval and plan for a 3rd aortic valve replacement, which according to patient did not occur. Transesophageal echocardiogram 02/25/21: PROCEDURE NOTE: Procedure was performed in the operating room. Patient presented in fasting condition. His posterior pharynx was anesthetized using viscous lidocaine and Cetacaine spray. After appropriate time out was taken and all the appropriate monitors were applied, patient was positioned in left lateral decubitus position. Bite block was put in place. It was very difficult to perform esophageal intubation. I tried to pass the probe several times before being ultimately successful. After appropriate images were taken, the probe was withdrawn. Patient tolerated the procedure well and there were no immediate complications. FINDINGS: Normal left ventricular systolic function with estimated ejection fraction (EF) around 70%. Normal right ventricular (RV) systolic function. Left atrium is enlarged. Right atrium appears normal size. Mitral valve has normal mobility. I do not appreciate any vegetations or prolapse. Mild mitral insufficiency is noted. Left atrial appendage is small and free of thrombi. There is normal flow in both left-sided and right-sided pulmonary veins. Atrial septum is intact based on color Doppler and 2-dimensional imaging. Tricuspid valve appears normal. Mild tricuspid insufficiency is seen. Calculated pulmonary artery pressure is within normal limits. Pulmonic valve was poorly visualized. There is a bioprosthetic aortic valve. The visualization was somewhat limited, but it is well seated. There is approximately 0.8 cm mobile echodensity attached to the valve consistent with vegetation. The true anatomy of the valve, though, was poorly seen. Based on continuous wave Doppler, there is severe aortic stenosis with peak gradient 58 and mean gradient 41 mmHg. Trace insufficiency is noted. Limited views of thoracic aorta reveal no significant atherosclerosis. CONCLUSIONS: 1. Aortic bioprosthesis with severe stenosis (mean gradient 41 mmHg) and 0.8 cmmobile echodensity consistent with vegetation. Trace insufficiency. 2. No additional significant valvular disease. 3. Preserved left ventricular (LV) and right ventricular (RV) systolic function. 4. Intact atrial septum. 5. Left atrial appendage free of thrombus. ALLERGIES: Please see below. HOME MEDICATIONS: Please see below. PAST MEDICAL HISTORY: 1. Diabetes 2. Hypertension 3. Portal vein thrombosis diagnosed in 2004, treated with Coumadin x6 months, history of superior mesenteric vein occlusion in 2010 treated with Coumadin and switched to Xarelto. Patient is now on therapeutic Lovenox due to popliteal artery thrombosis requiring embolectomy. 4. Obesity 5. Nephrolithiasis 6. Cholelithiasis 7. Cardiomegaly 8. Bicuspid aortic valve 9. Spinal stenosis 10. 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 PAST SURGICAL HISTORY: 1. 1st Bioprosthetic aortic valve replacement January. 2. 2nd aortic bioprosthetic valve repalcement 3. Thrombectomy in popliteal artery 4. Laparoscopic cholecystectomy 2004 5. Colonoscopy 2004 SOCIAL HISTORY: Patient denies smoking Patient denies etoh use Patient denies illicit drug use lives with FAMILY HISTORY: Reviewed with patient, no relevant family history provide ALLERGIES: Please see below. REVIEW OF SYSTEMS: 10 point ROS conducted, relevant findings are noted in the HPI HOME MEDICATIONS: Please see below. PHYSICAL EXAMINATION: VITAL SIGNS: please see below General: NAD, comfortable HEENT: PERRLA, EOMI, sclerae clear Neck: supple, normal ROM, no JVD Respiratory: lungs CTAB, no wheeze, no rales, no crackles CVS: RRR, normal S1, S2, no murmurs Abdo: soft, no masses, no hepatosplenomegaly, BS+, no rebound tenderness Extremities: no edema, pulses 2+ MSK: no joint deformities, normal ROM Neuro: no focal neuro deficits, moving all 4 extremities, CN2-12 intact. Strength 5/5 in all 4 extremities. No nystagmus (on initial exam). At the time of my initial examination, the patient was neurologically intact, but developed L sided facial droop, slurred speech and tongue deviation while en route to MRI. NIHSS 2. Psych: calm, cooperative, AAO x 3 LABORATORY DATA: See below. IMAGING: CT head wo contrast (05/12/21): FINDINGS: Brain: No intracranial hemorrhage or extra-axial fluid collection. No evidence of mass effect or midline shift. Colon-white matter differentiation is intact. Cerebral ventricles: No ventriculomegaly. Paranasal sinuses: Visualized sinuses are unremarkable. No fluid levels. Mastoid air cells: Unremarkable. Bones/joints: No acute osseus lesion or fracture. Soft tissues: Unremarkable. IMPRESSION: No acute intracranial pathology. ASPECTS score 10. CXR (05/12/21): IMPRESSION: No acute cardiopulmonary findings. LABORATORY DATA: Please see below. ASSESSMENT/PLAN: 61-year-old male with a past medical history of portal vein thrombosis previously on Xarelto now on therapeutic Lovenox, bioprosthetic aortic valve replacement x2, left popliteal artery thrombosis, acute limb ischemia, type 2 diabetes, hypertension, obesity. Presented with symptoms of TIA which included left-sided hemiplegia. Patient underwent CT head which showed no acute intracranial normality. On the way to MRI imaging patient developed repeat symptoms including left-sided facial droop numbness and tongue deviation. Again the patient received his regular dose of therapeutic Lovenox 100 mg subQ at approximately 1700 this evening which disqualifies him from use of tPA. Given the patient's cardiac history which included vegetation on bioprosthetic aortic valve it is thought that stroke symptoms are likely caused by embolic phenomena arising from the aortic valve. It is my opinion that the patient requires transfer to a higher level of care with cardiac surgery services available. I spoke to [facility] neurologist Dr. Graham, who recommended patient be transferred to [facility]. Patient was arranged for an ER to ER transfer. I discussed the plan with the patient's spouse Mrs. Antony Rocha, who agreed with transfer. Vital Signs/I&O Vital Signs Date Time Temp Pulse Resp B/P (MAP) Pulse Ox O2 Delivery O2 Flow Rate FiO2 05/12/21 22:20 151/81 (104) 05/12/21 22:15 95 94 Room Air 05/12/21 20:30 18 Laboratory Data Labs 24H Laboratory Tests 2 05/12/21 19:52: Bedside Glucose (Misc Panel) 178H 05/12/21 20:00: Immature Granulocyte % (Auto) 0.3, Neutrophils (%) (Auto) 56.5, Lymphocytes (%) (Auto) 31.2, Monocytes (%) (Auto) 9.6H, Eosinophils (%) (Auto) 1.7, Basophils (%) (Auto) 0.7, Neutrophils # (Auto) 5.1, Lymphocytes # (Auto) 2.8, Monocytes # (Auto) 0.9H, Eosinophils # (Auto) 0.2, Basophils # (Auto) 0.1, Nucleated Red Blood Cells % (auto) 0.0, Anion Gap 5L, Glomerular Filtration Rate > 60.0, Calcium Level 9.0, Magnesium Level 1.6L 05/12/21 20:54: Coronavirus (COVID-19)(PCR) NEGATIVE, Influenza Type A (RT-PCR) NEGATIVE, Influenza Type B (RT-PCR) NEGATIVE, Respiratory Syncytial Virus (PCR) NEGATIVE 05/12/21 20:56: POC Troponin I (Misc) 0.00 CBC/BMP Laboratory Tests 05/12/21 20:00 Allergies Coded Allergies: hydrocodone (Verified Allergy, Unknown, 09/26/19) oxycodone (Verified Adverse Reaction, Intermediate, HALLUCINATIONS, 02/23/21) hydromorphone (Verified Adverse Reaction, Mild, HALLUCINATIONS, 09/26/19) Home Medications Scheduled Amitriptyline HCl (Amitriptyline HCl) 25 Mg Tablet, 25 MG PO QHS, (Reported) Aspirin (Aspirin) 81 Mg Tab.chew, 81 MG PO DAILY, (Reported) Atorvastatin Calcium (Atorvastatin Calcium) 40 Mg Tablet, 40 MG PO QHS, (Re ported) Enoxaparin Sodium (Enoxaparin Sodium) 100 Mg/1 Ml Syringe, 100 MG INJ BID, (Reported) Metformin HCl (Metformin HCl ER) 750 Mg Tab.er.24h, 750 MG PO BID, (Reported) Metoprolol Tartrate (Metoprolol Tartrate) 25 Mg Tablet, 12.5 MG PO BID, (Reported) Multivitamins (Thera M Plus Tablet) 1 Each Tablet, 1 TAB PO DAILY, (Reported) LUIZ BUENO MD May 13, 2021 00:28
[2021-05-13 00:45] VITALS: BP 130/75
--- NOTE | 2021-05-13 02:09 | REPVR ---
PROCEDURE INFORMATION: Exam: MRA Head Without Contrast; Arteriography Exam date and time: 05/12/2021 1:30 AM Age: 61 years old Clinical indication: Weakness and other: Droopy left face; Patient HX: Droopy and weakness all on left side; Additional info: TIA TECHNIQUE: Imaging protocol: Magnetic resonance angiography head without contrast. Exam focused on the arteries. COMPARISON: CT Head without contrast 05/12/2021 7:40 PM FINDINGS: Anterior circulation: Normal flow signal and luminal caliber in the petrous, cavernous and supraclinoid internal carotid arteries. Normal appearance of the anterior cerebral artery branches and middle cerebral artery branches through the MCA trifurcations. No occlusion, high-grade focal stenosis or dissection. No aneurysm. Posterior circulation: Normal distal vertebral arteries, with patent normal caliber basilar artery, and normal superior cerebellar and posterior cerebral arteries. No occlusion, high-grade stenosis or aneurysm. IMPRESSION: Unremarkable MR angiogram of the [place] and intracranial vertebrobasilar system. Electronically signed by: Walt Box On 05/13/2021 02:08:29 AM
--- NOTE | 2021-05-13 02:10 | REPVR ---
PROCEDURE INFORMATION: Exam: MRA Neck Without Contrast Exam date and time: 05/12/2021 1:30 AM Age: 61 years old Clinical indication: Patient HX: Droopy and weakness all on left side; Additional info: TIA TECHNIQUE: Imaging protocol: Magnetic resonance angiography of the neck without contrast. COMPARISON: MRA BRAIN W/O CONTRAST 05/12/2021 11:31 PM FINDINGS: Bilateral common carotid arteries, carotid bulbs, internal carotids and proximal external carotid branches show normal symmetric luminal caliber and flow signal. No high-grade stenosis. No occlusion or dissection. Both vertebral arteries are normal in luminal caliber and flow signal to the level of the skull base. No dissection, or occlusion or focal stenosis. No abnormality of the great vessel origins from the aortic arch. IMPRESSION: Unremarkable MR angiogram of the neck. REFERENCES: NASCET CRITERIA. The degree of internal carotid artery stenosis is based on NASCET criteria. Normal is no stenosis. Mild is less than 50% stenosis. Moderate is 50-69% stenosis. Severe is 70% to 99% stenosis. Total occlusion is no detectable patent lumen. Electronically signed by: Walt Box On 05/13/2021 02:09:46 AM
--- NOTE | 2021-05-13 02:11 | REPVR ---
PROCEDURE INFORMATION: Exam: MR Head Without Contrast Exam date and time: 05/12/2021 1:30 AM Age: 61 years old Clinical indication: Weakness, extremity; Patient HX: Droopy and weakness all on left side; Additional info: TIA TECHNIQUE: Imaging protocol: MR of the head without contrast. COMPARISON: CT Head without contrast 05/12/2021 7:40 PM FINDINGS: No abnormal restriction of diffusion to indicate acute CVA. Midline structures and cerebellar tonsillar position appear normal. Ventricles, cisterns and sulci are symmetric and normal for age. No intracranial mass, midline shift or abnormal extra-axial fluid. No acute intracranial hemorrhage. No abnormal white matter signal on FLAIR and T2 sequences. Optic chiasm and pituitary infundibulum appear normal. Normal vascular flow voids in major intracranial arteries and dural venous sinuses. Paranasal sinuses are normally aerated. Mastoid air cells are normally aerated. Optic globes and orbits are unremarkable. IMPRESSION: Unremarkable noncontrast MRI of the brain. Electronically signed by: Walt Box On 05/13/2021 02:11:05 AM
--- NOTE | 2021-05-13 05:34 | ECGEPIP ---
[facility] - ED Test Date: 2021-05-12 Pat Name: ZORAIDA ROSE Department: Room: - Gender: Male Voice And Data Technician: MYLENE : 1960 Requested By: EDDA Sifuentes Order Number: [id number] Reading MD: Don Laboy Measurements Intervals Cyril Rate: 97 P: 15 MA: 152 QRS: -15 QRSD: 132 T: -4 QT: 380 QTc: 482 Interpretive Statements Normal sinus rhythm Right bundle branch block Minimal voltage criteria for LVH, may be normal variant ( R in aVL ) Inferior infarct , age undetermined NONSPECIFIC T WAVE ABNORMALITY(S) SIMILAR TO 10/08/19 Electronically Signed on 05-13-2021 5:34:30 EDT by Don Laboy
[2021-05-13] MEDS ORDERED: ENOXAPARIN 100MG/1ML SYRINGE (J1650 PER 10MG) SC SCH (06:00)
[2021-05-13] MEDS ORDERED: MULTIVITAMINS/MINERALS THERAP 1 TAB PO SCH (09:00)
== END 2021-05-13 00:44 | disposition short-term general hospital (02) | DRG 69 ==
LOC: M ED 19:38 → M ED INP 21:26
PROVIDERS: ADMIT Family Medicine; ATTEND Family Medicine
DX: G45.9 Transient cerebral ischemic attack, unspecified (principal); R47.81 Slurred speech; E11.9 Type 2 diabetes mellitus without complications; I10 Essential (primary) hypertension; E66.9 Obesity, unspecified; E78.5 Hyperlipidemia, unspecified; I77.1 Stricture of artery; I35.0 Nonrheumatic aortic (valve) stenosis; Z79.899 Other long term (current) drug therapy; Z79.82 Long term (current) use of aspirin; Z88.5 Allergy status to narcotic agent; Z79.01 Long term (current) use of anticoagulants; Z95.2 Presence of prosthetic heart valve; Z88.8 Allergy status to other drugs, medicaments and biological substances; Z20.822 Contact with and (suspected) exposure to COVID-19; R29.810 Facial weakness

== ENCOUNTER → 2021-06-21 | Outpatient (REF) | payer OTHER ==
[~2021-06-21] MED LIST changes: +ENOX100I3 INJ
[2021-06-21 13:22] LABS: PERCENT SATURATION 11.6 % (19.7-50.0)
== END ==
LOC: M LAB REF 12:12
PROVIDERS: ATTEND Internal Medicine
DX: I74.3 Embolism and thrombosis of arteries of the lower extremities (principal); I80.8 Phlebitis and thrombophlebitis of other sites

== ENCOUNTER 2021-10-28 10:42 | Emergency (ER) | payer OTHER ==
[~2021-10-28] VITALS: Ht 165.1 cm; Wt 107.7 kg
[2021-10-28] MEDS ORDERED: IRON65TA2 PO (10:54)
[2021-10-28] MEDS ORDERED: LEVE10003 (10:54)
[2021-10-28] MEDS ORDERED: TRAM50TA2 (10:54)
[2021-10-28] MEDS ORDERED: MELA3TAB67 PO (10:54)
[2021-10-28] MEDS ORDERED: WARF-58 (10:54)
[2021-10-28] MEDS ORDERED: MORPHINE 4 MG/ML 1ML VIAL/SYRINGE (J2270) IV ONE (11:20)
[2021-10-28 11:56] LABS: BASO # 0.1 10^3/uL (0.0-0.2); BASO % 0.6 % (0.0-1.0); EOS # 0.1 10^3/uL (0.0-0.5); EOS % 1.3 % (0.0-3.0); HEMATOCRIT 41.6 % (42.0-52.0); HEMOGLOBIN 13.3 g/dl (13.5-17.5); LYMPH # 2.1 10^3/uL (1.5-5.0); LYMPH % 27.4 % (24.0-44.0); MEAN CORPUSCULAR HEMOGLOBIN 27.3 pg (27.0-33.0); MEAN CORPUSCULAR VOLUME 85.2 fl (80.0-96.0); MONO # 0.6 10^3/uL (0.0-0.8); MONO % 8.1 % (2.0-8.0); NEUTROPHILS # 4.9 10^3/uL (1.5-8.5); NEUTROPHILS % 62.2 % (36.0-66.0); PLATELET COUNT, AUTOMATED 423 10^3/uL (150-450); RED BLOOD COUNT 4.88 10^6/uL (4.30-6.10); WHITE BLOOD COUNT 7.8 10^3/uL (4.0-10.0)
[2021-10-28 12:09] LABS: INR 2.66; PROTHROMBIN TIME 28.7 SECONDS (12.7-14.5)
[2021-10-28 12:15] LABS: BLOOD UREA NITROGEN 19 MG/DL (7-18); CALCIUM LEVEL 8.8 MG/DL (8.5-10.1); CARBON DIOXIDE LEVEL 26 MEQ/L (21-32); CHLORIDE LEVEL 109 MEQ/L (98-107); CREATININE FOR GFR 0.86 MG/DL (0.70-1.30); GLOMERULAR FILTRATION RATE > 60.0 (>56); GLUCOSE, FASTING 135 MG/DL (70-100); POTASSIUM SERUM 4.4 MEQ/L (3.5-5.1); SODIUM LEVEL 140 MEQ/L (136-145)
[2021-10-28 14:02] VITALS: BP 143/81
== END 2021-10-28 14:04 | disposition home or self-care (01) ==
LOC: M ED 10:42
DX: R10.9 Unspecified abdominal pain (principal); R19.7 Diarrhea, unspecified; E11.9 Type 2 diabetes mellitus without complications; I10 Essential (primary) hypertension; E78.5 Hyperlipidemia, unspecified; G40.909 Epilepsy, unspecified, not intractable, without status epilepticus; Z86.718 Personal history of other venous thrombosis and embolism; Z87.19 Personal history of other diseases of the digestive system; Z87.442 Personal history of urinary calculi; Z95.2 Presence of prosthetic heart valve; Z79.899 Other long term (current) drug therapy; Z79.82 Long term (current) use of aspirin; Z79.84 Long term (current) use of oral hypoglycemic drugs; Z79.01 Long term (current) use of anticoagulants
CPT/HCPCS: 72131; 74176; 80048; 81001; 85025; 85610; 96374; 99284; J2270

== ENCOUNTER → 2021-12-14 | Outpatient (REF) | payer OTHER ==
[~2021-12-14] MED LIST changes: +IRON65TA2 PO; +LEVE10003; +MELA3TAB67 PO; +TRAM50TA2; +WARF-58
== END ==
LOC: M LAB REF 16:33
PROVIDERS: ATTEND Nurse Practitioner Adult Health
DX: R10.9 Unspecified abdominal pain (principal)

== ENCOUNTER 2022-01-22 01:57 | Inpatient (IN) | payer OTHER ==
[~2022-01-22] VITALS: Ht 165.1 cm; Wt 108.0 kg
[~2022-01-22 01:57] MED LIST changes: -LEVE10003; +LEVE10003 PO; -WARF-58; +WARF-58 PO
[2022-01-22] MEDS ORDERED: ONDANSETRON 4MG/2ML VIAL IV ONE (03:30)
[2022-01-22] MEDS ORDERED: MORPHINE 4 MG/ML 1ML VIAL/SYRINGE IV PRN (03:30)
[2022-01-22 03:32] LABS: BASO # 0.1 10^3/uL (0.0-0.2); BASO % 0.7 % (0.0-1.0); EOS # 0.1 10^3/uL (0.0-0.5); EOS % 1.7 % (0.0-3.0); HEMOGLOBIN 11.3 g/dl (13.5-17.5); LYMPH # 2.1 10^3/uL (1.5-5.0); LYMPH % 29.3 % (24.0-44.0); MEAN CORPUSCULAR HEMOGLOBIN 29.6 pg (27.0-33.0); MEAN CORPUSCULAR HGB CONC 33.2 g/dl (32.0-36.5); MONO # 0.8 10^3/uL (0.0-0.8); MONO % 10.4 % (2.0-8.0); NEUTROPHILS # 4.2 10^3/uL (1.5-8.5); NEUTROPHILS % 57.6 % (36.0-66.0); PLATELET COUNT, AUTOMATED 347 10^3/uL (150-450); RED BLOOD COUNT 3.82 10^6/uL (4.30-6.10); WHITE BLOOD COUNT 7.2 10^3/uL (4.0-10.0)
[2022-01-22 03:43] LABS: INR 2.7
[2022-01-22 03:44] LABS: PARTIAL THROMBOPLASTIN TIME 43.1 SECONDS (25.9-37.0)
[2022-01-22 04:03] LABS: ALBUMIN 3.2 GM/DL (3.2-5.2); ALT/SGPT 30 U/L (12-78); BILIRUBIN,DIRECT < 0.1 MG/DL (0.0-0.2); BILIRUBIN,TOTAL 0.2 MG/DL (0.2-1.0); BLOOD UREA NITROGEN 16 MG/DL (7-18); CARBON DIOXIDE LEVEL 25 MEQ/L (21-32); CHLORIDE LEVEL 111 MEQ/L (98-107); CREATININE FOR GFR 0.85 MG/DL (0.70-1.30); GLOMERULAR FILTRATION RATE > 60.0 (>56); GLUCOSE, FASTING 168 MG/DL (70-100); LIPASE 122 U/L (73-393); POTASSIUM SERUM 4.3 MEQ/L (3.5-5.1); SODIUM LEVEL 142 MEQ/L (136-145); TOTAL PROTEIN 7.5 GM/DL (6.4-8.2)
[2022-01-22] MEDS ORDERED: ISOVUE-370 76% 100ML VIAL As Ordered ONE (04:10)
[2022-01-22] MEDS ORDERED: PHYTONADIONE 5 MG TAB PO ONE (05:35)
[2022-01-22] MEDS ORDERED: DEXTROSE 50% 50 ML SYRINGE IV PRN (05:35)
[2022-01-22] MEDS ORDERED: SODIUM CHLORIDE 0.9% 1000ML IV SCH (05:35)
[2022-01-22] MEDS ORDERED: GLUCOSE 4GM CHEW TABLET PO PRN (05:35)
[2022-01-22] MEDS ORDERED: GLUCAGON INJ 1MG VIAL SC PRN (05:35)
[2022-01-22] MEDS: INSULIN LISPRO (NovoLOG) PER UNIT SC SCH ×4 (06:00→21:27)
[2022-01-22] MEDS ORDERED: melatonin PO (06:09)
[2022-01-22] MEDS ORDERED: FLOM0.4C39 PO (06:09)
[2022-01-22] MEDS ORDERED: OMEP-173 PO (06:09)
[2022-01-22] MEDS ORDERED: WARF-58 PO (06:09)
[2022-01-22] MEDS ORDERED: HOME MED LIST COMPLETE! XX SCH (06:10)
[2022-01-22 06:55] LABS: HEMATOCRIT 32.4 % (42.0-52.0); HEMOGLOBIN 10.8 g/dl (13.5-17.5)
[2022-01-22 08:16] LABS: INR 3.06; PROTHROMBIN TIME 31.9 SECONDS (12.7-14.5)
[2022-01-22 10:10] VITALS: BP 131/70
[2022-01-22 11:14] LABS: HEMOGLOBIN 11.2 g/dl (13.5-17.5)
[2022-01-22 12:11] VITALS: BP 126/64
[2022-01-22] MEDS ORDERED: DOCUSATE SODIUM 100MG CAPSULE PO SCH (13:00)
[2022-01-22] MEDS ORDERED: SENNA 8.6 MG TAB (SENOKOT) PO SCH (13:00)
[2022-01-22] MEDS: PANTOPRAZOLE 40MG VIAL IV SCH (13:30)
[2022-01-22] MEDS ORDERED: BISACODYL 5 MG TAB PO ONE (16:00)
[2022-01-22 16:02] VITALS: BP 136/65
[2022-01-22] MEDS ORDERED: MAGNESIUM CITRATE 300 ML BTL PO ONE (18:00)
[2022-01-22] MEDS: NS 1,000 ML IV SCH (18:01)
[2022-01-22 19:07] LABS: HEMATOCRIT 30.4 % (42.0-52.0)
[2022-01-22 20:00] VITALS: BP 132/69
[2022-01-23] VITALS: BP 121/82
[2022-01-23] MEDS: PANTOPRAZOLE 40MG VIAL IV SCH (01:10)
[2022-01-23 04:00] VITALS: BP 133/70
[2022-01-23] MEDS: NS 1,000 ML IV SCH (04:10)
[2022-01-23 05:21] LABS: HEMATOCRIT 31.7 % (42.0-52.0); HEMOGLOBIN 10.4 g/dl (13.5-17.5)
[2022-01-23] MEDS ORDERED: MAGNESIUM CITRATE 300 ML BTL PO ONE (06:00)
[2022-01-23] MEDS: INSULIN LISPRO (NovoLOG) PER UNIT SC SCH (07:30)
[2022-01-23 07:55] LABS: BASO # 0.1 10^3/uL (0.0-0.2); BASO % 0.7 % (0.0-1.0); EOS # 0.1 10^3/uL (0.0-0.5); EOS % 1.3 % (0.0-3.0); HEMATOCRIT 30.2 % (42.0-52.0); HEMOGLOBIN 9.8 g/dl (13.5-17.5); LYMPH # 1.5 10^3/uL (1.5-5.0); LYMPH % 21.6 % (24.0-44.0); MEAN CORPUSCULAR HEMOGLOBIN 28.4 pg (27.0-33.0); MEAN CORPUSCULAR HGB CONC 32.5 g/dl (32.0-36.5); MEAN CORPUSCULAR VOLUME 87.5 fl (80.0-96.0); MONO # 0.6 10^3/uL (0.0-0.8); MONO % 8.7 % (2.0-8.0); NEUTROPHILS # 4.6 10^3/uL (1.5-8.5); NEUTROPHILS % 67.6 % (36.0-66.0); PLATELET COUNT, AUTOMATED 266 10^3/uL (150-450); RED BLOOD COUNT 3.45 10^6/uL (4.30-6.10); WHITE BLOOD COUNT 6.8 10^3/uL (4.0-10.0)
[2022-01-23 08:06] LABS: INR 2.43; PROTHROMBIN TIME 26.8 SECONDS (12.7-14.5)
[2022-01-23 08:18] VITALS: BP 151/78
[2022-01-23 08:24] LABS: BLOOD UREA NITROGEN 9 MG/DL (7-18); CALCIUM LEVEL 8.7 MG/DL (8.5-10.1); CARBON DIOXIDE LEVEL 26 MEQ/L (21-32); CHLORIDE LEVEL 110 MEQ/L (98-107); CREATININE FOR GFR 0.71 MG/DL (0.70-1.30); GLOMERULAR FILTRATION RATE > 60.0 (>56); GLUCOSE, FASTING 130 MG/DL (70-100); MAGNESIUM LEVEL 1.8 MG/DL (1.8-2.4); POTASSIUM SERUM 4.2 MEQ/L (3.5-5.1); SODIUM LEVEL 142 MEQ/L (136-145)
== END 2022-01-23 09:58 | disposition home or self-care (01) | DRG 379 ==
LOC: M ED 01:57 → M ED INP 05:35 → ENRESERV 06:53 → M PCU 10:15
PROVIDERS: ADMIT Internal Medicine; ATTEND Internal Medicine
DX: K92.2 Gastrointestinal hemorrhage, unspecified (principal); E11.9 Type 2 diabetes mellitus without complications; I48.91 Unspecified atrial fibrillation; Z95.3 Presence of xenogenic heart valve; Z95.4 Presence of other heart-valve replacement; Z79.84 Long term (current) use of oral hypoglycemic drugs; Z79.01 Long term (current) use of anticoagulants; Z79.82 Long term (current) use of aspirin; Z79.899 Other long term (current) drug therapy; Z88.5 Allergy status to narcotic agent; G47.33 Obstructive sleep apnea (adult) (pediatric)

== ENCOUNTER → 2022-04-02 | Outpatient (REF) | payer OTHER ==
[~2022-04-02] MED LIST changes: +FLOM0.4C39 PO; +OMEP-173 PO; +melatonin PO
== END ==
LOC: M LAB REF 12:03
PROVIDERS: ATTEND Physician Assistant
DX: R30.0 Dysuria (principal)

== ENCOUNTER 2022-04-26 03:12 | Emergency (ER) | payer OTHER ==
[~2022-04-26] VITALS: Ht 165.1 cm; Wt 109.1 kg
[2022-04-26] MEDS ORDERED: PANT40TA29 PO (03:30)
[2022-04-26 05:12] LABS: BASO # 0.1 10^3/uL (0.0-0.2); BASO % 0.5 % (0.0-1.0); EOS # 0.1 10^3/uL (0.0-0.5); EOS % 0.9 % (0.0-3.0); HEMATOCRIT 38.2 % (42.0-52.0); HEMOGLOBIN 12.5 g/dl (13.5-17.5); LYMPH # 1.7 10^3/uL (1.5-5.0); LYMPH % 16.1 % (24.0-44.0); MEAN CORPUSCULAR HEMOGLOBIN 28.9 pg (27.0-33.0); MEAN CORPUSCULAR HGB CONC 32.7 g/dl (32.0-36.5); MEAN CORPUSCULAR VOLUME 88.2 fl (80.0-96.0); MONO # 0.9 10^3/uL (0.0-0.8); MONO % 8.8 % (2.0-8.0); NEUTROPHILS # 7.5 10^3/uL (1.5-8.5); NEUTROPHILS % 73.4 % (36.0-66.0); PLATELET COUNT, AUTOMATED 335 10^3/uL (150-450); RED BLOOD COUNT 4.33 10^6/uL (4.30-6.10); WHITE BLOOD COUNT 10.2 10^3/uL (4.0-10.0)
[2022-04-26] MEDS ORDERED: MORPHINE 4 MG/ML 1ML VIAL/SYRINGE IV PRN (05:15)
[2022-04-26] MEDS ORDERED: NS 1,000 ML IV ONE (05:15)
[2022-04-26] MEDS ORDERED: ONDANSETRON 4MG 2ML VIAL IV ONE (05:15)
[2022-04-26 05:47] LABS: ALBUMIN 3.5 GM/DL (3.2-5.2); ALT/SGPT 29 U/L (12-78); BILIRUBIN,DIRECT 0.1 MG/DL (0.0-0.2); BILIRUBIN,TOTAL 0.4 MG/DL (0.2-1.0); BLOOD UREA NITROGEN 11 MG/DL (7-18); CALCIUM LEVEL 8.7 MG/DL (8.5-10.1); CARBON DIOXIDE LEVEL 23 MEQ/L (21-32); CHLORIDE LEVEL 108 MEQ/L (98-107); CREATININE FOR GFR 0.79 MG/DL (0.70-1.30); GLOMERULAR FILTRATION RATE > 60.0 (>56); GLUCOSE, FASTING 152 MG/DL (70-100); LIPASE 93 U/L (73-393); POTASSIUM SERUM 4.1 MEQ/L (3.5-5.1); SODIUM LEVEL 139 MEQ/L (136-145)
[2022-04-26] MEDS ORDERED: ISOVUE-370 76% 100ML VIAL As Ordered ONE (06:01)
[2022-04-26] MEDS ORDERED: APAP325T4 PO (06:29)
[2022-04-26] MEDS ORDERED: HOME MED LIST COMPLETE! XX SCH (06:30)
[2022-04-26] MEDS ORDERED: PERC5TAB12 PO (07:34)
[2022-04-26] MEDS ORDERED: METR-265 PO (07:34)
[2022-04-26] MEDS ORDERED: CIPR-249 PO (07:34)
[2022-04-26 07:54] VITALS: BP 160/84
[2022-04-26] MEDS ORDERED: ULTR50TA8 PO (08:03)
== END 2022-04-26 07:51 | disposition home or self-care (01) ==
LOC: M ED 03:12
DX: K57.32 Diverticulitis of large intestine without perforation or abscess without bleeding (principal); Z95.1 Presence of aortocoronary bypass graft; Z96.641 Presence of right artificial hip joint; I48.91 Unspecified atrial fibrillation; Z86.73 Personal history of transient ischemic attack (TIA), and cerebral infarction without residual deficits; K21.9 Gastro-esophageal reflux disease without esophagitis; Z90.49 Acquired absence of other specified parts of digestive tract; Z88.5 Allergy status to narcotic agent; Z79.899 Other long term (current) drug therapy; Z79.82 Long term (current) use of aspirin; Z79.01 Long term (current) use of anticoagulants; Z79.84 Long term (current) use of oral hypoglycemic drugs
CPT/HCPCS: 74177; 80048; 80076; 83690; 85025; 96361; 96374; 96375; 99284; J2270; J2405; Q9967

== ENCOUNTER → 2022-10-29 | Outpatient (REF) | payer OTHER ==
[~2022-10-29] MED LIST changes: +APAP325T4 PO; +CIPR-249 PO; +METR-265 PO; +PANT40TA29 PO; +PERC5TAB12 PO; +ULTR50TA8 PO
[2022-10-29 13:48] LABS: FERRITIN 56.5 NG/ML (10.5-307.3)
== END ==
LOC: M LAB REF 12:21
PROVIDERS: ATTEND Internal Medicine
DX: D64.9 Anemia, unspecified (principal)

== ENCOUNTER → 2023-02-04 | Outpatient (CLI) | payer OTHER | LOC: M WUC 10:12 | PROVIDERS: ATTEND Student in an Organized Health Care Education/Training Program | DX: R05.9 Cough, unspecified (principal); Z95.1 Presence of aortocoronary bypass graft ==

== ENCOUNTER → 2023-02-20 | Outpatient (REF) | payer OTHER ==
[2023-02-20 17:58] LABS: FERRITIN 61.6 NG/ML (10.5-307.3)
[2023-02-20 18:01] LABS: PERCENT SATURATION 17.7 % (19.7-50.0)
== END ==
LOC: M LAB REF 16:29
PROVIDERS: ATTEND Internal Medicine
DX: D50.9 Iron deficiency anemia, unspecified (principal)

== ENCOUNTER → 2023-05-29 | Outpatient (REF) | payer OTHER ==
[~2023-05-29] MED LIST changes: -AMIT25TA17 PO; +AMIT25TA19 PO
[2023-05-29 17:28] LABS: PERCENT SATURATION 17.1 % (19.7-50.0)
[2023-05-29 17:31] LABS: FERRITIN 89.4 NG/ML (10.5-307.3)
== END ==
LOC: M LAB REF 16:28
PROVIDERS: ATTEND Internal Medicine
DX: I74.3 Embolism and thrombosis of arteries of the lower extremities (principal); I80.8 Phlebitis and thrombophlebitis of other sites; D50.9 Iron deficiency anemia, unspecified

== ENCOUNTER 2023-06-30 14:08 | Emergency (ER) | payer OTHER ==
[~2023-06-30] VITALS: Ht 165.1 cm; Wt 111.1 kg
[2023-06-30] MEDS ORDERED: FARX1TAB3 (14:21)
[2023-06-30] MEDS ORDERED: GLIM2TAB29 (14:21)
[2023-06-30] MEDS ORDERED: NS 1,000 ML IV SCH (14:35)
[2023-06-30 14:56] LABS: BASO # 0.1 10^3/uL (0.0-0.2); BASO % 0.7 % (0.0-1.0); EOS # 0.1 10^3/uL (0.0-0.5); EOS % 1.3 % (0.0-3.0); HEMATOCRIT 41.9 % (42.0-52.0); HEMOGLOBIN 13.6 g/dl (13.5-17.5); LYMPH # 1.7 10^3/uL (1.5-5.0); LYMPH % 24.2 % (24.0-44.0); MEAN CORPUSCULAR HEMOGLOBIN 29.5 pg (27.0-33.0); MEAN CORPUSCULAR HGB CONC 32.5 g/dl (32.0-36.5); MEAN CORPUSCULAR VOLUME 90.9 fl (80.0-96.0); MONO # 0.6 10^3/uL (0.0-0.8); MONO % 7.9 % (2.0-8.0); NEUTROPHILS # 4.7 10^3/uL (1.5-8.5); NEUTROPHILS % 65.8 % (36.0-66.0); PLATELET COUNT, AUTOMATED 315 10^3/uL (150-450); RED BLOOD COUNT 4.61 10^6/uL (4.30-6.10); WHITE BLOOD COUNT 7.2 10^3/uL (4.0-10.0)
[2023-06-30 15:10] LABS: INR 2.71; PROTHROMBIN TIME 27.8 SECONDS (12.5-14.5)
[2023-06-30 15:21] LABS: LIPASE 29 U/L (12-53)
[2023-06-30 15:27] LABS: ALBUMIN 3.7 G/DL (3.2-5.2); ALKALINE PHOSPHATASE 68 U/L (46-116); ALT/SGPT 49 U/L (7.0-40); AST/SGOT 38 U/L (<34); BILIRUBIN,DIRECT 0.2 MG/DL (<0.4); BILIRUBIN,TOTAL 0.5 MG/DL (0.3-1.2); BLOOD UREA NITROGEN 14 MG/DL (9-23); CALCIUM LEVEL 8.7 MG/DL (8.3-10.6); CARBON DIOXIDE LEVEL 27 MMOL/L (20-31); CHLORIDE LEVEL 108 MMOL/L (98-107); CREATININE FOR GFR 0.98 MG/DL (0.70-1.30); GLOMERULAR FILTRATION RATE > 60.0 (>49); GLUCOSE, FASTING 140 MG/DL (74-106); MAGNESIUM LEVEL 1.6 MG/DL (1.8-2.4); POTASSIUM SERUM 4.2 MMOL/L (3.5-5.1); SODIUM LEVEL 143 MMOL/L (136-145)
[2023-06-30 15:31] LABS: TOTAL 25(OH) VITAMIN D 24.7 NG/ML (20.0-100.0)
[2023-06-30] MEDS ORDERED: AMOX875T2 PO (16:28)
[2023-06-30] MEDS ORDERED: AUGMENTIN 875 MG TAB PO ONE (16:30)
[2023-06-30 16:38] VITALS: O2SAT 95
[2023-06-30 16:49] VITALS: BP 145/69; TEMP 97.7
[2023-06-30] MEDS ORDERED: ISOVUE-370 76% 100ML VIAL As Ordered ONE (19:36)
== END 2023-06-30 16:55 | disposition home or self-care (01) ==
LOC: M ED 14:08
DX: K57.32 Diverticulitis of large intestine without perforation or abscess without bleeding (principal); E11.9 Type 2 diabetes mellitus without complications; I10 Essential (primary) hypertension; Z86.718 Personal history of other venous thrombosis and embolism; K76.0 Fatty (change of) liver, not elsewhere classified; Z79.899 Other long term (current) drug therapy; Z88.5 Allergy status to narcotic agent
CPT/HCPCS: 74177; 80048; 80076; 81001; 82306; 83690; 83735; 85025; 85610; 99284; Q9967

== ENCOUNTER → 2023-07-15 | Outpatient (CLI) | payer OTHER ==
[~2023-07-15] MED LIST changes: +AMOX875T2 PO; +FARX1TAB3; +GLIM2TAB29
== END ==
LOC: M RAD 12:56
PROVIDERS: ATTEND Internal Medicine Gastroenterology
DX: R16.0 Hepatomegaly, not elsewhere classified (principal); I81 Portal vein thrombosis; D12.3 Benign neoplasm of transverse colon; K22.70 Barrett's esophagus without dysplasia

== ENCOUNTER → 2023-08-15 | Outpatient (REF) | payer OTHER ==
[2023-08-15 13:18] LABS: PERCENT SATURATION 24.6 % (19.7-50.0)
[2023-08-15 13:20] LABS: FERRITIN 48.5 NG/ML (10.5-307.3)
== END ==
LOC: M LAB REF 11:29
PROVIDERS: ATTEND Internal Medicine
DX: D50.9 Iron deficiency anemia, unspecified (principal)

== ENCOUNTER → 2023-11-06 | Outpatient (REF) | payer OTHER ==
[2023-11-06 14:37] LABS: PERCENT SATURATION 19.4 % (19.7-50.0)
== END ==
LOC: M LAB REF 13:06
PROVIDERS: ATTEND Internal Medicine
DX: D50.9 Iron deficiency anemia, unspecified (principal)

== ENCOUNTER → 2023-11-25 | Outpatient (CLI) | payer OTHER | LOC: M WUC 10:58 | PROVIDERS: ATTEND Nurse Practitioner Family | DX: R05.9 Cough, unspecified (principal) ==

== ENCOUNTER → 2024-07-28 | Outpatient (REF) | payer OTHER ==
[2024-07-28 14:19] LABS: LIPASE 40 U/L (12-53)
[2024-07-28 14:23] LABS: VITAMIN B12 LEVEL 612 PG/ML (211-911)
== END ==
LOC: M LAB REF 13:06
PROVIDERS: ATTEND Internal Medicine
DX: K21.9 Gastro-esophageal reflux disease without esophagitis (principal)